=== PATIENT | female | born 1990 | race Caucasian/White ===

== ENCOUNTER 2017-02-20 16:19 | Inpatient (IN) | payer MEDICAID, OTHER ==
[2017-02-20] MEDS ORDERED: HALOPERIDOL DECANOATE 50 MG/ML 1 ML VIAL IM STA (17:05)
[2017-02-20] MEDS ORDERED: LORazepam 2 MG/ML SYRINGE IM STA (17:05)
[2017-02-20] MEDS ORDERED: HALOPERIDOL LACTATE 5 MG/ML 1 ML VIAL IM STA (17:09)
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
[2017-02-20] MEDS ORDERED: MAGNESIUM HYDROXIDE 2,400 MG/10 ML CUP PO PRN (21:32)
[2017-02-20] MEDS ORDERED: MAG HYDROX/AL HYDROX/SIMETH 30 ML CUP PO PRN (21:32)
[2017-02-20] MEDS ORDERED: ZIPRASIDONE 20 MG VIAL IM PRN (21:32)
[2017-02-20] MEDS ORDERED: ACETAMINOPHEN TAB 325 MG TAB PO PRN (21:32)
[2017-02-20] MEDS ORDERED: LORazepam 2 MG/ML SYRINGE IM PRN (21:34)
[2017-02-21 09:25] LABS: Basophils % (A) 0 %; CH 31.3; CHCM 33.5; Eosinophils # (A) 0.2 k/uL (0-0.7); Eosinophils % (A) 3 %; HCT 40.2 % (34.0-46.0); HDW 2.28; HGB 13.5 gm/dL (11.4-16.0); Luc # (Auto) 0.15; Luc % (Auto) 3; Lymphocytes # (A) 1.9 k/uL (1.0-4.8); Lymphocytes % (A) 31 %; MCH 31.4 pg (25.0-35.0); MCHC 33.5 g/dL (31.0-37.0); MCV 93.8 fL (80.0-100.0); Mean Platelet Volume 6.8; Monocytes # (A) 0.4 k/uL (0-1.0); Monocytes % (A) 6 %; Neutrophils # (A) 3.6 k/uL (1.3-7.7); Neutrophils % (A) 58 %; RBC 4.29 m/uL (3.80-5.40); RDW 12.9 % (11.5-15.5); WBC 6.2 k/uL (3.8-10.6); WBC (Perox) 6.64
[2017-02-21 09:48] LABS: ALT 27 U/L (9-52); AST 22 U/L (14-36); Alkaline Phosphatase 64 U/L (38-126); Anion Gap 9 mmol/L; Blood Urea Nitrogen 16 mg/dL (7-17); Calcium 9.2 mg/dL (8.4-10.2); Carbon Dioxide 24 mmol/L (22-30); Chloride 110 mmol/L (98-107); Glucose 78 mg/dL (74-99); Non-African American GFR(MDRD) >60 (>60 ml/min/1.73 sqM); Potassium 3.9 mmol/L (3.5-5.1); Sodium 143 mmol/L (137-145); Total Bilirubin 0.7 mg/dL (0.2-1.3); Total Protein 6.2 g/dL (6.3-8.2)
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
[2017-02-21] MEDS: OLANZapine 2.5 MG TAB PO SCH (21:48)
--- NOTE | 2017-02-22 14:34 | P.PN ---
Progress Note - Text Interval History: Patient is a 27-year-old female who was seen today and states that [facility] family [facility] all [facility] and then she went on to say that [place] [address] and went on to say that her sister had a picture on Facebook of herself in front of the [place]. Patient then asked me to [place] on the petition what things were incorrect she states that she feels all of the statements on a petition were lies. Patient reported that she did sleep last night. Patient states that she is not interested in going to [place] where she was scheduled for an intake on February 13. Mental Status: Appearance/Attitude: Patient is dressed in a hospital gown, found lying in her bed and she is cooperative. Behavior: Patient is not exhibiting any psychomotor agitation or retardation and is less irritable today Speech/Language: Patient's speech is spontaneous, normal volume and rhythm and she is coherent Thought Process: Patient is not goal-directed, patient is tangential Thought Content: Patient denies auditory or visual hallucinations, no paranoid or delusional ideation is elicited however the patient continues to insist that all the statements on the petition are lies. Patient is rambling in her discussion of wanting to go to a different rehab place, stating that all of her family have gone there and then talking about her sister being on Facebook with a picture in front of the [place] and then stating that she thinks her thoughts are clear to her. Patient states that she needs to let it all out and can't. Patient states that she slept well last evening. Suicidal/Homicidal Ideation: Patient denies any suicidal or homicidal ideation at this time. Sensorium/Cognition: Patient is alert and oriented to person, place, and situation and her memory is not formally tested Mood/Affect: Patient's mood is less irritable, her affect is blunted Insight/Judgement: Patient's insight and judgment are impaired. Assessment: Patient continues to be disorganized, rambling on about [facility] [place] that she reports she has talked to the psychotherapist social worker about today, which she has not. Also talking about in context of [place] a picture on Facebook of her sister in front of the [place], then jumping back to talking about [facility] being [place] [address]. Patient is less irritable today and she slept well last evening. Patient is not attending groups or activities. Plan: Patient will continue on Zyprexa 2.5 mg at bedtime should she continue to be as disorganized tomorrow would increase her Zyprexa to 5 mg at bedtime. Patient is less irritable and sleeping better but is not attending groups or activities. Patient continues to require hospitalization to stabilize her thinking.
[2017-02-22] MEDS: OLANZapine 2.5 MG TAB PO SCH (20:53)
[2017-02-23 12:20] LABS: Appearance,Urine Cloudy (Clear); Bacteria,Urine Few /hpf; Bilirubin,Urine Negative (Negative); Glucose,Urine (UA) 1+ (Negative); Ketones,Urine Negative (Negative); Leukocyte Esterase,Urine Large (Negative); Mucus,Urine Many /hpf; Nitrite,Urine Positive (Negative); PH, Urine 7.5 (5.0-8.0); Particle Count 74078; Protein,Urine 1+ (Negative); RBC,Urine 66 /hpf (0-5); Specific Gravity,Urine 1.021 (1.001-1.035); Squamous Epithelial Cell,Urine 25 /hpf (0-4); UA Billing (MACRO vs. MICRO) MICRO; WBC,Urine 77 /hpf (0-5)
[2017-02-23] MEDS: NICOTINE 14MG/24HR PATCH TRANSDERM SCH (15:07)
[2017-02-23] MEDS: SULFAMETHOX-TMP 800-160MG 1 EACH TAB PO SCH ×2 (17:37→20:09)
[2017-02-23] MEDS: OLANZapine 2.5 MG TAB PO SCH (20:09)
--- NOTE | 2017-02-24 08:09 | PN ---
PROGRESS NOTE DATE OF SERVICE: 02/23/2017. CHIEF COMPLAINT: The patient was admitted presumably for hearing voices. She was vague about specifics. At one point she said she was not hearing voices. Though at another point, had talked about hearing and "imaginary friend". She reported daily use of methamphetamines and marijuana. She was then admitted on petition for involuntary hospitalization though she was adamant about the idea that was documented was not at all accurate. The patient had a quiet evening last night. She apparently was in a group and got involved in a discussion of a questionable topic. She was redirected though did not appear to have any further problems. She had a otherwise a quiet evening. She slept fairly well. Today she has been up and about. She did attend one group today. In the group she was noted to be "preoccupied with her per petition and wanting to get it changed. The patient became tearful at the beginning of group." She did acknowledge being "heart broken." It is noted that on the petition it was documented that she was making suicide statements. She had not been taking care of herself for the last 2-3 weeks which is outside of her norm. She reportedly had not slept for 4 days prior to her hospitalization. There is a significant family history of mental health issues. The patient reports that she has been doing fairly well. She tolerates her medications. She says she has not had any problems with Zyprexa. She was comfortable leaving the dose where it was at which was 2.[address] Potter had indicated she would consider raising the Zyprexa [address] Potter noted yesterday that the patient continued to be disorganized in her thoughts. However she was less irritable and sleeping better. The patient reported no significant issues today. She has not had change in her general health. She tolerates his psychotropic medications. MENTAL STATUS: Patient gave good eye contact. Psychomotor activity was somewhat restless. Her speech was clear. She did tend to ramble some though for the most part, stayed on track with the conversation. Her affect was in a fair range. Her mood was somewhat expansive. She did not appear to be significantly distressed. There was no overt sign of thought disorder. ASSESSMENT AND PLAN: I will continue the current diagnosis and treatment plan. I will continue psychotropic medications the same. The patient appears to be making progress. We will continue to focus on stabilization and discharge planning. MMODL / IJN: [id number] /
[2017-02-24] MEDS: SULFAMETHOX-TMP 800-160MG 1 EACH TAB PO SCH ×2 (08:13→20:27)
[2017-02-24] MEDS: NICOTINE 14MG/24HR PATCH TRANSDERM SCH (08:13)
[2017-02-24] MEDS ORDERED: OLANZapine 5 MG TAB PO PRN (15:02)
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
[2017-02-24] MEDS: OLANZapine 2.5 MG TAB PO SCH (20:27)
[2017-02-25 06:42] VITALS: RESP 14
[2017-02-25] MEDS: SULFAMETHOX-TMP 800-160MG 1 EACH TAB PO SCH ×2 (09:44→20:16)
[2017-02-25] MEDS: NICOTINE 14MG/24HR PATCH TRANSDERM SCH (09:45)
--- NOTE | 2017-02-25 11:47 | P.PN ---
Progress Note - Text Interval History: Patient is a 27-year-old female who was seen today. Patient reports that she is doing much better and states she is no longer having any auditory hallucinations no longer speaking to her imaginary friend. She reports that her thinking is much clearer. Patient states she has been eating and sleeping well. She stated that she did have a family meeting with her aunt. states that she did take 1 when necessary dose of Zyprexa because she was a little agitated but states that she has otherwise been sleeping and eating well. Patient reports that she has been using methamphetamine for 1 year only prior to that was abusing Adderall, cocaine in the past. Patient states she is interested in returning to [facility] as well as back to [place] for outpatient counseling. Mental Status: Appearance/Attitude: Patient is neatly groomed, makes good eye contact and is cooperative. Behavior: Patient does not display any psychomotor agitation or retardation. Speech/Language: Patient's speech is spontaneous, normal volume and rhythm and she is coherent. Thought Process: Patient is goal-directed and there is no evidence of circumstantial or tangential thought and no loose associations or flight of ideas. Thought Content: Patient denies any auditory or visual hallucinations, no delusions or paranoid ideation were elicited. The patient states that she is no longer talking to her imaginary friend states that her thinking is much clearer. Patient reports she is eating and sleeping well. Suicidal/Homicidal Ideation: Patient denies any current suicidal or homicidal ideation. Sensorium/Cognition: Patient is alert and oriented to person, place, and time and her memory is grossly intact. Mood/Affect: Patient's mood is more stable less guarded and her affect is appropriate. Insight/Judgement: Patient's insight and judgment are fair. Assessment: Patient reports that her thinking is much clearer, she is no longer having auditory hallucinations talking to an imaginary friend and is not as guarded. Patient admits that she has been abusing methamphetamine for the last year. Patient is aware of the improvement in her thinking. She is eating and sleeping well. She is not interested in going for inpatient rehab again and wants to return to [place] for outpatient counseling. Plan: Patient will continue on Zyprexa 2.5 mg at bedtime and I will discontinue the when necessary Zyprexa as the patient is not agitated and has been cooperative. Patient and I discussed discharged either Saturday or Saturday with follow-up at [facility] and/or at [place] for substance abuse counseling.
[2017-02-25] MEDS: LORazepam 1 MG TAB PO PRN (13:20)
[2017-02-25] MEDS: OLANZapine 2.5 MG TAB PO SCH (20:16)
[2017-02-26 06:51] VITALS: BP 111/60; PULSE 77; TEMP 98
[2017-02-26] MEDS: SULFAMETHOX-TMP 800-160MG 1 EACH TAB PO SCH (09:26)
[2017-02-26] MEDS: NICOTINE 14MG/24HR PATCH TRANSDERM SCH (09:26)
[2017-02-26] MEDS: LORazepam 1 MG TAB PO PRN (10:38)
--- NOTE | 2017-02-26 11:43 | P.DS ---
Providers Date of admission: 02/20/17 20:41 Expected date of discharge: 02/26/17 Attending physician: Mayelin Potter MD Consults: 02/20/17 21:32 Consult Physician Routine Consulting Provider: Ronald Moreno Consult Reason/Comments: medical management Do you want consulting provider notified?: Already Contacted Primary care physician: Stated None Hospital Course: Discharge Diagnoses:[ Methamphetamine induced psychotic disorder, methamphetamine use disorder, moderate; cannabis use disorder, moderate Reason for Admission: Patient is a 27-year-old females brought to the emergency room after her aunt petitioned the patient due to not sleeping for 2-3 days at a time, speaking to an imaginary person and yelling and screaming at neighbors. Patient had not been eating recently and had lost about 10 pounds. Patient states that she hasn't had an imaginary friend called Jen that she talks to and denied that she was hearing voices or feeling paranoid. Patient was very disorganized and a very poor historian on admission. Patient reported using methamphetamine on a daily basis for the last year when she was no longer prescribed Adderall. She also reported using marijuana on a daily basis and denied using benzodiazepines or other amphetamines although her screen was positive for these on admission. Patient stated that the petition was all lies and that everyone was "a fucking liar". She reported that everything was bull shit and was unable to elaborate on what was going on at the time of admission. Patient had one prior admission here in February 2016 and again at that time secondary to methamphetamine use. Patient reports that she had been treated in the past with Adderall since the age of 14 and had also been tried on Wellbutrin and Strattera. Patient also had prescriptions apparently for several antidepressants at home as well as Klonopin and Xanax but she denies ever taking them.] Hospital Course: Patient was admitted on a voluntary basis, routine laboratory studies were ordered and a medical consultation was obtained. Patient was placed on routine observations in order group and activity therapy. Due to the patient's psychotic symptoms she was begun on Zyprexa 2.5 mg at bedtime. Patient slowly improved with the antipsychotic and became less confused and reported she was no longer hearing voices or feeling paranoid. Patient's sleep improved and her appetite as well improved. Patient reported a good response to the medication and at the time of discharge her thinking was clear, she was interested in following up with outpatient drug rehab and was considering going to [facility] at [place]. Patient reported no suicidal ideation and was not having any further psychotic symptomatology and was doing well on the unit attending groups and activities.] Discharge Mental Status:[Appearance/Attitude: Patient was neatly and appropriately dressed, made good eye contact and was cooperative. Behavior: Patient did not display any psychomotor agitation or retardation. Speech/Language: Patient's speech was spontaneous and of normal volume and rhythm and she was coherent. Thought Process: Patient was goal-directed and there is no evidence of circumstantial or tangential thought and there was no evidence of flight of ideas or loose associations. Thought Content: Patient denied any auditory or visual hallucinations no delusions or paranoid ideation were elicited. Patient's thinking was much clear she no longer was talking to her imaginary friend. Patient was sleeping and eating well. Suicidal/Homicidal Ideation: Patient denied any suicidal or homicidal ideation at this time. Sensorium/Cognition: Patient was alert and oriented to person, place, and time and her memory was grossly intact. Mood/Affect: Patient's mood was pleasant and her affect was appropriate. Insight/Judgement: Patient's insight and judgment were fair. Laboratory Last Values WBC 6.2 k/uL (3.8-10.6) 02/21/17 09:02 RBC 4.29 m/uL (3.80-5.40) 02/21/17 09:02 Hgb 13.5 gm/dL (11.4-16.0) 02/21/17 09:02 Hct 40.2 % (34.0-46.0) 02/21/17 09:02 MCV 93.8 fL (80.0-100.0) 02/21/17 09:02 MCH 31.4 pg (25.0-35.0) 02/21/17 09:02 MCHC 33.5 g/dL (31.0-37.0) 02/21/17 09:02 RDW 12.9 % (11.5-15.5) 02/21/17 09:02 Plt Count 292 k/uL (150-450) 02/21/17 09:02 Neutrophils % 58 % 02/21/17 09:02 Lymphocytes % 31 % 02/21/17 09:02 Monocytes % 6 % 02/21/17 09:02 Eosinophils % 3 % 02/21/17 09:02 Basophils % 0 % 02/21/17 09:02 Neutrophils # 3.6 k/uL (1.3-7.7) 02/21/17 09:02 Lymphocytes # 1.9 k/uL (1.0-4.8) 02/21/17 09:02 Monocytes # 0.4 k/uL (0-1.0) 02/21/17 09:02 Eosinophils # 0.2 k/uL (0-0.7) 02/21/17 09:02 Basophils # 0.0 k/uL (0-0.2) 02/21/17 09:02 Sodium 143 mmol/L (137-145) 02/21/17 09:02 Potassium 3.9 mmol/L (3.5-5.1) 02/21/17 09:02 Chloride 110 mmol/L (98-107) H 02/21/17 09:02 Carbon Dioxide 24 mmol/L (22-30) 02/21/17 09:02 Anion Gap 9 mmol/L 02/21/17 09:02 BUN 16 mg/dL (7-17) 02/21/17 09:02 Creatinine 0.70 mg/dL (0.52-1.04) 02/21/17 09:02 Est GFR (MDRD) Af Amer >60 (>60 ml/min/1.73 sqM) 02/21/17 09:02 Est GFR (MDRD) Non-Af >60 (>60 ml/min/1.73 sqM) 02/21/17 09:02 Glucose 78 mg/dL (74-99) 02/21/17 09:02 Calcium 9.2 mg/dL (8.4-10.2) 02/21/17 09:02 Total Bilirubin 0.7 mg/dL (0.2-1.3) 02/21/17 09:02 AST 22 U/L (14-36) 02/21/17 09:02 ALT 27 U/L (9-52) 02/21/17 09:02 Alkaline Phosphatase 64 U/L (38-126) 02/21/17 09:02 Total Protein 6.2 g/dL (6.3-8.2) L 02/21/17 09:02 Albumin 4.0 g/dL (3.5-5.0) 02/21/17 09:02 TSH 0.574 mIU/L (0.465-4.680) 02/21/17 09:02 Urine Color Yellow 02/23/17 11:54 Urine Appearance Cloudy (Clear) H 02/23/17 11:54 Urine pH 7.5 (5.0-8.0) 02/23/17 11:54 Ur Specific [place] 1.021 (1.001-1.035) 02/23/17 11:54 Urine Protein 1+ (Negative) H 02/23/17 11:54 Urine Glucose (UA) 1+ (Negative) H 02/23/17 11:54 Urine Ketones Negative (Negative) 02/23/17 11:54 Urine Blood Large (Negative) H 02/23/17 11:54 Urine Nitrite Positive (Negative) H 02/23/17 11:54 Urine Bilirubin Negative (Negative) 02/23/17 11:54 Urine Urobilinogen 3.0 mg/dL (<2.0) 02/23/17 11:54 Ur Leukocyte Esterase Large (Negative) H 02/23/17 11:54 Urine RBC 66 /hpf (0-5) H 02/23/17 11:54 Urine WBC 77 /hpf (0-5) H 02/23/17 11:54 Ur Squamous Epith Cells 25 /hpf (0-4) H 02/23/17 11:54 Urine Bacteria Few /hpf (None) H 02/23/17 11:54 Urine Mucus Many /hpf (None) H 02/23/17 11:54 Urine HCG, Qual Not Detected (Not Detectd) 02/20/17 17:49 Urine Opiates Screen Not Detected (NotDetected) 02/20/17 17:49 Ur Oxycodone Screen Not Detected (NotDetected) 02/20/17 17:49 Urine Methadone Screen Not Detected (NotDetected) 02/20/17 17:49 Ur Propoxyphene Screen Not Detected (NotDetected) 02/20/17 17:49 Ur Barbiturates Screen Not Detected (NotDetected) 02/20/17 17:49 U Tricyclic Antidepress Not Detected (NotDetected) 02/20/17 17:49 Ur Phencyclidine Scrn Not Detected (NotDetected) 02/20/17 17:49 Ur Amphetamines Screen Detected (NotDetected) H 02/20/17 17:49 U Methamphetamines Scrn Detected (NotDetected) H 02/20/17 17:49 U Benzodiazepines Scrn Detected (NotDetected) H 02/20/17 17:49 Urine Cocaine Screen Not Detected (NotDetected) 02/20/17 17:49 U Marijuana (THC) Screen Detected (NotDetected) H 02/20/17 17:49 Risk Assessment: Patient's risk is low for self harm she has no prior history of suicide attempts, is interested in drug rehab. Discharge Plan: Patient will be discharged to live with her aunt she [facility] and continue on Zyprexa 2.5 mg at bedtime. Patient will follow-up with her interest in drug rehab at [facility] in [place]. Patient was given a prescription for Zyprexa 2.5 mg to take at bedtime as well as Bactrim for 3 more days to treat a UTI. Patient Condition at Discharge: Stable Plan - Discharge Summary New Discharge Prescriptions: New OLANZapine [ZyPREXA] 2.5 mg PO HS #14 tab Sulfamethox-Tmp 800-160Mg [Bactrim DS 800-160 mg] 1 each PO BID #6 tab Discontinued Acyclovir 400 mg PO BID clonazePAM [KlonoPIN] 0.5 mg PO Q12H PRN PRN Reason: Anxiety FLUoxetine HCL [PROzac] 20 mg PO DAILY Escitalopram [Lexapro] 10 mg PO DAILY ALPRAZolam [Xanax] 0.25 mg PO Q8H PRN PRN Reason: Anxiety Discharge Medication List OLANZapine [ZyPREXA] 2.5 mg PO HS #14 tab 02/26/17 [Rx] Sulfamethox-Tmp 800-160Mg [Bactrim DS 800-160 mg] 1 each PO BID #6 tab 02/26/17 [Rx] Follow up Appointment(s)/Referral(s): [facility] - 02/28/17 3:30 pm (Intake at [facility] for 02/28 at 3:30 pm) None,Stated [Primary Care Provider] - 1-2 days Patient Instructions/Handouts: How to Stop Smoking (DC), Brief Psychotic Disorder (DC), Methamphetamine Abuse (DC) Activity/Diet/Wound Care/Special Instructions: Remove all weapons and firearms from the home. No street drugs or alcohol. Regular Diet. Activity as tolerated. Follow up care with your PCP in 1-2 days. Keep all scheduled follow up appointments for continuity of care. Any problems call your PCP or the Crisis Line Discharge Disposition: HOME SELF-CARE
== END 2017-02-26 14:44 | disposition home or self-care (01) | DRG 897 ==
LOC: EC 16:19 → 3MHU 20:41
PROVIDERS: ADMIT Psychiatry & Neurology Psychiatry; ATTEND Psychiatry & Neurology Psychiatry
DX: F15.159 Other stimulant abuse with stimulant-induced psychotic disorder, unspecified (principal); N39.0 Urinary tract infection, site not specified; F41.9 Anxiety disorder, unspecified; F17.200 Nicotine dependence, unspecified, uncomplicated; F12.10 Cannabis abuse, uncomplicated; F19.10 Other psychoactive substance abuse, uncomplicated; F90.9 Attention-deficit hyperactivity disorder, unspecified type; Z79.899 Other long term (current) drug therapy; Z86.14 Personal history of Methicillin resistant Staphylococcus aureus infection
CPT/HCPCS: 80053; 80306; 81001; 81025; 82075; 84443; 85025; 96372; 99285

== ENCOUNTER 2017-03-11 13:09 | Inpatient (IN) | payer MEDICAID, OTHER ==
--- NOTE | 2017-03-11 13:55 | ED ---
General Adult HPI - General Chief complaint: Psychiatric Symptoms Stated complaint: Mental Health Time Seen by Provider: 03/11/17 13:24 Source: patient, police, RN notes reviewed Mode of arrival: ambulatory Limitations: no limitations - History of Present Illness Initial comments: Patient is a pleasant 27-year-old female presenting to the emergency department with police escort. Patient states she is here to urinate and he calm. Patient has no complaints. Patient denies depression or suicidal or homicidal thoughts. No physical complaints. Patient denies drug use at this time. Prior chart was reviewed and patient does have history of similar problems previously. Patient does have history of methamphetamine use. Patient is obviously manic and has difficulty holding conversation. Patient's responses are not reliable. Flight of ideas. - Related Data Home Medications Medication Instructions Recorded Confirmed OLANZapine [ZyPREXA] 2.5 mg PO HS 03/11/17 03/11/17 Allergies Allergy/AdvReac Type Severity Reaction Status Date / Time No Known Allergies Allergy Verified 03/11/17 13:10 Review of Systems ROS Statement: Those systems with pertinent positive or pertinent negative responses have been documented in the HPI. ROS Other: All systems not noted in ROS Statement are negative. Constitutional: Denies: fever Eyes: Denies: eye pain ENT: Denies: ear pain Respiratory: Denies: cough Cardiovascular: Denies: chest pain Endocrine: Denies: fatigue Gastrointestinal: Denies: abdominal pain Genitourinary: Denies: dysuria Musculoskeletal: Denies: back pain Skin: Denies: rash Neurological: Denies: weakness Psychiatric: Denies: depression Past Medical History Past Medical History: No Reported History Additional Past Medical History / Comment(s): hx herpes, IUD surgically removed History of Any Multi-Drug Resistant Organisms: MRSA Date of last positivie culture/infection: 2013 MDRO Source:: lt leg, lt axillae Past Surgical History: Section Past Anesthesia/Blood Transfusion Reactions: Postoperative Nausea & Vomiting ( PONV) Past Psychological History: ADD/ADHD, Bipolar Smoking Status: Current every day smoker Past Alcohol Use History: Occasional Past Drug Use History: Marijuana - Past Family History Mother Additional Family Medical History / Comment(s): blood clot main artery neck General Exam Limitations: no limitations General appearance: alert, in no apparent distress Head exam: Present: atraumatic Eye exam: Present: normal appearance, PERRL ENT exam: Present: normal oropharynx Neck exam: Present: normal inspection Respiratory exam: Present: normal lung sounds bilaterally Cardiovascular Exam: Present: regular rate, normal rhythm GI/Abdominal exam: Present: soft Extremities exam: Present: normal inspection Neurological exam: Present: alert. Absent: motor sensory deficit Psychiatric exam: Present: manic Expanded Focused psych exam: Present: euphoric, flight of ideas Skin exam: Present: normal color Course Vital Signs 03/11/17 13:10 Temperature 98.2 F Pulse Rate 100 Respiratory 20 Rate Blood Pressure 152/98 O2 Sat by Pulse 100 Oximetry EKG Findings - EKG Comments: EKG Findings:: Tachycardia 103. ME 132. QRS 84. QT 342. QTC 440. Normal axis. Normal QRS. No acute ST change. Medical Decision Making - Medical Decision Making Patient was seen by mental health services, who will admit. Positive clinical certificate completed. - Lab Data Result diagrams: 03/11/17 14:10 03/11/17 14:10 Lab Results 03/11/17 03/11/17 03/11/17 Range/Units 14:10 14:10 14:50 WBC 10.3 (3.8-10.6) k/uL RBC 4.66 (3.80-5.40) m/uL Hgb 14.3 (11.4-16.0) gm/dL Hct 43.4 (34.0-46.0) % MCV 93.1 (80.0-100.0) fL MCH 30.7 (25.0-35.0) pg MCHC 33.0 (31.0-37.0) g/dL RDW 13.7 (11.5-15.5) % Plt Count 312 (150-450) k/uL Neutrophils % 67 % Lymphocytes % 24 % Monocytes % 5 % Eosinophils % 2 % Basophils % 0 % Neutrophils # 6.9 (1.3-7.7) k/uL Lymphocytes # 2.5 (1.0-4.8) k/uL Monocytes # 0.6 (0-1.0) k/uL Eosinophils # 0.2 (0-0.7) k/uL Basophils # 0.0 (0-0.2) k/uL Sodium 143 (137-145) mmol/L Potassium 3.9 (3.5-5.1) mmol/L Chloride 104 (98-107) mmol/L Carbon Dioxide 25 (22-30) mmol/L Anion Gap 14 mmol/L BUN 21 H (7-17) mg/dL Creatinine 0.70 (0.52-1.04) mg/dL Est GFR (MDRD) Af Amer >60 (>60 ml/min/1.73 sqM) Est GFR (MDRD) Non-Af >60 (>60 ml/min/1.73 sqM) Glucose 108 H (74-99) mg/dL Calcium 9.9 (8.4-10.2) mg/dL Total Bilirubin 0.7 (0.2-1.3) mg/dL AST 26 (14-36) U/L ALT 36 (9-52) U/L Alkaline Phosphatase 81 (38-126) U/L Total Protein 8.1 (6.3-8.2) g/dL Albumin 5.0 (3.5-5.0) g/dL Urine HCG, Qual (Not Detectd) Salicylates <1.0 mg/dL Urine Opiates Screen Not Detected (NotDetected) Ur Oxycodone Screen Not Detected (NotDetected) Urine Methadone Screen Not Detected (NotDetected) Ur Propoxyphene Screen Not Detected (NotDetected) Acetaminophen <10.0 ug/mL Ur Barbiturates Screen Not Detected (NotDetected) U Tricyclic Antidepress Not Detected (NotDetected) Ur Phencyclidine Scrn Not Detected (NotDetected) Ur Amphetamines Screen Detected H (NotDetected) U Methamphetamines Scrn Detected H (NotDetected) U Benzodiazepines Scrn Detected H (NotDetected) Urine Cocaine Screen Not Detected (NotDetected) U Marijuana (THC) Screen Detected H (NotDetected) Serum Alcohol <10 mg/dL 03/11/17 Range/Units 14:50 WBC (3.8-10.6) k/uL RBC (3.80-5.40) m/uL Hgb (11.4-16.0) gm/dL Hct (34.0-46.0) % MCV (80.0-100.0) fL MCH (25.0-35.0) pg MCHC (31.0-37.0) g/dL RDW (11.5-15.5) % Plt Count (150-450) k/uL Neutrophils % % Lymphocytes % % Monocytes % % Eosinophils % % Basophils % % Neutrophils # (1.3-7.7) k/uL Lymphocytes # (1.0-4.8) k/uL Monocytes # (0-1.0) k/uL Eosinophils # (0-0.7) k/uL Basophils # (0-0.2) k/uL Sodium (137-145) mmol/L Potassium (3.5-5.1) mmol/L Chloride (98-107) mmol/L Carbon Dioxide (22-30) mmol/L Anion Gap mmol/L BUN (7-17) mg/dL Creatinine (0.52-1.04) mg/dL Est GFR (MDRD) Af Amer (>60 ml/min/1.73 sqM) Est GFR (MDRD) Non-Af (>60 ml/min/1.73 sqM) Glucose (74-99) mg/dL Calcium (8.4-10.2) mg/dL Total Bilirubin (0.2-1.3) mg/dL AST (14-36) U/L ALT (9-52) U/L Alkaline Phosphatase (38-126) U/L Total Protein (6.3-8.2) g/dL Albumin (3.5-5.0) g/dL Urine HCG, Qual Not Detected (Not Detectd) Salicylates mg/dL Urine Opiates Screen (NotDetected) Ur Oxycodone Screen (NotDetected) Urine Methadone Screen (NotDetected) Ur Propoxyphene Screen (NotDetected) Acetaminophen ug/mL Ur Barbiturates Screen (NotDetected) U Tricyclic Antidepress (NotDetected) Ur Phencyclidine Scrn (NotDetected) Ur Amphetamines Screen (NotDetected) U Methamphetamines Scrn (NotDetected) U Benzodiazepines Scrn (NotDetected) Urine Cocaine Screen (NotDetected) U Marijuana (THC) Screen (NotDetected) Serum Alcohol mg/dL Disposition Clinical Impression: Psychosis, [place] Disposition: TRANSFER TO PSYCH HOSP/UNIT Referrals: Héctor Arellano Jr, DO [Primary Care Provider] - 1-2 days Decision Time: 16:31
[2017-03-11 14:26] LABS: Basophils % (A) 0 %; CHCM 34.6; Eosinophils # (A) 0.2 k/uL (0-0.7); Eosinophils % (A) 2 %; HCT 43.4 % (34.0-46.0); HGB 14.3 gm/dL (11.4-16.0); Luc # (Auto) 0.18; Luc % (Auto) 2; Lymphocytes # (A) 2.5 k/uL (1.0-4.8); Lymphocytes % (A) 24 %; MCH 30.7 pg (25.0-35.0); MCV 93.1 fL (80.0-100.0); Mean Platelet Volume 7.8; Monocytes # (A) 0.6 k/uL (0-1.0); Monocytes % (A) 5 %; Neutrophils # (A) 6.9 k/uL (1.3-7.7); Neutrophils % (A) 67 %; RBC 4.66 m/uL (3.80-5.40); RDW 13.7 % (11.5-15.5); WBC 10.3 k/uL (3.8-10.6)
[2017-03-11 14:33] LABS: ALT 36 U/L (9-52); AST 26 U/L (14-36); Acetaminophen <10.0 ug/mL; Alcohol <10 mg/dL; Alkaline Phosphatase 81 U/L (38-126); Anion Gap 14 mmol/L; Blood Urea Nitrogen 21 mg/dL (7-17); Calcium 9.9 mg/dL (8.4-10.2); Carbon Dioxide 25 mmol/L (22-30); Chloride 104 mmol/L (98-107); Glucose 108 mg/dL (74-99); Non-African American GFR(MDRD) >60 (>60 ml/min/1.73 sqM); Potassium 3.9 mmol/L (3.5-5.1); Salicylate <1.0 mg/dL; Sodium 143 mmol/L (137-145); Total Bilirubin 0.7 mg/dL (0.2-1.3); Total Protein 8.1 g/dL (6.3-8.2)
[2017-03-11] MEDS ORDERED: LORazepam 2 MG/ML INJ IM STA (16:10)
[2017-03-11] MEDS ORDERED: LORazepam 1 MG TAB PO STA ×2 (16:31→16:38)
[2017-03-11] MEDS ORDERED: MAG HYDROX/AL HYDROX/SIMETH 30 ML CUP PO PRN (17:45)
[2017-03-11] MEDS ORDERED: ZIPRASIDONE 20 MG VIAL IM ONE (17:46)
[2017-03-11] MEDS ORDERED: LORazepam 2 MG/ML INJ IM PRN (17:47)
[2017-03-11] MEDS ORDERED: WATER FOR INJECTION, STERILE 10 ML IV ONE (17:47)
[2017-03-11] MEDS: ZIPRASIDONE 20 MG VIAL IM PRN (17:53)
[2017-03-11] MEDS ORDERED: OLANZapine 2.5 MG TAB PO SCH (21:00)
[2017-03-12] MEDS: NICOTINE 14MG/24HR PATCH TRANSDERM SCH (09:21)
[2017-03-12] MEDS: LORazepam 1 MG TAB PO PRN ×2 (09:21→20:33)
[2017-03-12 09:29] LABS: Basophils % (A) 0 %; CH 30.6; CHCM 33.1; Eosinophils # (A) 0.2 k/uL (0-0.7); Eosinophils % (A) 2 %; HDW 2.36; HGB 13.3 gm/dL (11.4-16.0); Luc # (Auto) 0.13; Luc % (Auto) 2; Lymphocytes # (A) 1.2 k/uL (1.0-4.8); Lymphocytes % (A) 14 %; MCH 31.6 pg (25.0-35.0); MCV 92.9 fL (80.0-100.0); Mean Platelet Volume 7.1; Monocytes # (A) 0.4 k/uL (0-1.0); Monocytes % (A) 5 %; Neutrophils # (A) 6.6 k/uL (1.3-7.7); Neutrophils % (A) 77 %; RBC 4.19 m/uL (3.80-5.40); WBC 8.6 k/uL (3.8-10.6); WBC (Perox) 8.94
[2017-03-12 09:41] LABS: ALT 33 U/L (9-52); AST 20 U/L (14-36); Alkaline Phosphatase 61 U/L (38-126); Anion Gap 10 mmol/L; Blood Urea Nitrogen 20 mg/dL (7-17); Calcium 9.2 mg/dL (8.4-10.2); Carbon Dioxide 26 mmol/L (22-30); Chloride 109 mmol/L (98-107); Glucose 107 mg/dL (74-99); Non-African American GFR(MDRD) >60 (>60 ml/min/1.73 sqM); Potassium 4.3 mmol/L (3.5-5.1); Sodium 145 mmol/L (137-145); Total Bilirubin 0.6 mg/dL (0.2-1.3); Total Protein 6.7 g/dL (6.3-8.2)
[2017-03-12] MEDS: ACETAMINOPHEN TAB 325 MG TAB PO PRN (11:21)
[2017-03-12] MEDS: OLANZapine ODT 5 MG TAB PO PRN (12:15)
--- NOTE | 2017-03-12 13:32 | P.CONS ---
History of Present Illness - Reason for Consult Consult date: 03/12/17 Medical Management - Chief Complaint Psychiatric Admission - History of Present Illness 27-year-old female who presented to the emergency department via police escort on 03/11/2017. The patient was admitted to the mental health unit with a diagnosis of psychosis. The patient had a recent admission to the hospital from 02/20/2017 to 2016 due to being petitioned by her aunt and was admitted to the mental health unit. Toxicology reports completed in the ER revealed the patient was positive for amphetamines, methamphetamines, benzodiazepines, and marijuana. Dr. Moreno was consulted for medical management. The patient denies any medical concerns or complaints with the exception of stating that she feels that her allergies are bothering her. She denies shortness of breath or chest pain. She denies nausea or vomiting. She is maintaining an oxygen saturation greater than 92% on room air. Her vital signs are stable. She is slightly tachycardic with a heart rate of 107. Her lab work was reviewed. Review of Systems Those systems with pertinent positive or pertinent negative responses have been documented in the HPI Past Medical History Past Medical History: No Reported History Additional Past Medical History / Comment(s): hx herpes, IUD surgically removed History of Any Multi-Drug Resistant Organisms: MRSA Year Discovered:: 2013 MDRO Source:: lt leg, lt axillae Past Surgical History: Section Past Anesthesia/Blood Transfusion Reactions: Postoperative Nausea & Vomiting ( PONV) Past Psychological History: ADD/ADHD, Bipolar Smoking Status: Current every day smoker Past Alcohol Use History: Occasional Past Drug Use History: Marijuana - Past Family History Mother Additional Family Medical History / Comment(s): blood clot main artery neck Medications and Allergies Home Medications Medication Instructions Recorded Confirmed Type OLANZapine [ZyPREXA] 2.5 mg PO HS 03/11/17 03/11/17 History Allergies Allergy/AdvReac Type Severity Reaction Status Date / Time No Known Allergies Allergy Verified 03/11/17 13:10 Physical Exam Vitals: Vital Signs Temp Pulse Pulse Resp BP BP Pulse Ox 03/12/17 09:23 107 H 16 107/67 03/11/17 18:00 99.2 F 114 H 22 126/82 99 03/11/17 17:25 97.5 F L 94 20 126/82 99 Intake and Output 09/03/12/17 03/12/17 22:59 06:59 14:59 Other: Weight 63.3 kg GENERAL: Alert and oriented. Cooperative. Appears manic. RESPIRATORY: Lungs clear bilaterally. No use of accessory muscles. Patient maintaining oxygen saturation greater than 92%. CARDIOVASCULAR: S1 and S2 noted. No murmurs auscultated. No JVD noted. EXTREMITIES: No edema noted. Palpable pedal pulses +2. ABDOMEN: No distention noted. Abdomen soft and round. Normal active bowel sounds auscultated 4 quadrants. No pain or tenderness noted upon palpation. 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 Potter -We will add Claritin 10 mg daily for seasonal allergies -Resume home meds as appropriate -Monitor labs -Monitor vital signs and address as appropriate The above impression and plan of care have been discussed and directed by signing physician. Ana María Love, nurse practitioner, acting as scribe for signing physician.
[2017-03-12] MEDS: LORATADINE 10 MG TAB PO SCH ×3 (13:47→18:45)
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
[2017-03-12] MEDS: MAGNESIUM HYDROXIDE 2,400 MG/10 ML CUP PO PRN (20:21)
[2017-03-12] MEDS: OLANZapine ODT 5 MG TAB PO SCH (20:30)
[2017-03-13] MEDS: LORATADINE 10 MG TAB PO SCH (08:26)
[2017-03-13] MEDS: NICOTINE 14MG/24HR PATCH TRANSDERM SCH (08:26)
[2017-03-13] MEDS: LORazepam 1 MG TAB PO PRN ×2 (08:28→16:40)
[2017-03-13] MEDS ORDERED: BACITRACIN OINT 1 EACH PACKET TOPICAL ONE (11:01)
--- NOTE | 2017-03-13 11:29 | P.PN ---
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 Patient states that she may or may not have been using drugs on the outside. Patient's UDS was positive and this was discussed with the patient. When patient was asked about going to inpatient rehab she stated that she does as she goes to the soup kitchen at [place]. Patient stated she was being true to the red white and blue. Patient then requested that she be restarted on Adderall. Mental Status: Appearance/Attitude: Patient is appropriately dressed, intermittent eye contact and is superficially cooperative. Behavior: Patient was brushing her teeth during the interview, she did not display any psychomotor agitation or retardation. Speech/Language: Patient's speech is slightly pressured, of normal volume and rhythm and she is coherent. Thought Process: Patient is tangential, at times her responses are not relevant. Thought Content: Patient denies auditory or visual hallucinations, patient did not express any paranoid or delusional ideation. Patient today states that she was not using drugs and then stated that maybe she was, she requested Adderall and stated she is being discharged in an hour. Suicidal/Homicidal Ideation: Patient denies any current suicidal or homicidal ideation. Sensorium/Cognition: Patient is alert and oriented to person, place, and time and her memory is grossly intact. Mood/Affect: Patient's mood remains labile, irritable and her affect is appropriate to her mood. Insight/Judgement: Patient's insight and judgment are poor. Assessment: patient is less agitated today, but remains tangential, at times her responses have no relevance to questions, she stated that she is going to rehab and stated that this was located at the [facility] kitchen. Patient's requesting Adderall states that she slept 12 hours last night. Patient is not verbalizing any delusional ideation today. Patient reported no side effects from the medication. There've been no further outbursts on the unit and patient is not attending groups or activities. Plan: Patient will continue on Zyprexa Zydis 5 mg at bedtime, she has used Ativan as needed and has not required any further Zyprexa as needed. Patient continues to require hospitalization to treat her psychosis.
[2017-03-13] MEDS: MAGNESIUM HYDROXIDE 2,400 MG/10 ML CUP PO PRN (20:30)
[2017-03-13] MEDS: OLANZapine ODT 5 MG TAB PO SCH (20:30)
[2017-03-14] MEDS: LORATADINE 10 MG TAB PO SCH (08:25)
[2017-03-14] MEDS: NICOTINE 14MG/24HR PATCH TRANSDERM SCH (08:25)
[2017-03-14] MEDS: LORazepam 1 MG TAB PO PRN ×3 (08:26→21:32)
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
[2017-03-14] MEDS: OLANZapine ODT 5 MG TAB PO PRN (13:30)
[2017-03-14] MEDS: OLANZapine ODT 5 MG TAB PO SCH (20:19)
[2017-03-15] MEDS: LORATADINE 10 MG TAB PO SCH (09:13)
[2017-03-15] MEDS: NICOTINE 14MG/24HR PATCH TRANSDERM SCH (09:13)
[2017-03-15] MEDS: LORazepam 1 MG TAB PO PRN ×2 (10:06→17:38)
[2017-03-15] MEDS: OLANZapine ODT 5 MG TAB PO PRN (10:10)
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
[2017-03-15] MEDS: OLANZapine ODT 10 MG TAB PO SCH (20:20)
[2017-03-15] MEDS: MAGNESIUM HYDROXIDE 2,400 MG/10 ML CUP PO PRN (20:25)
[2017-03-16] MEDS: LORATADINE 10 MG TAB PO SCH (08:45)
[2017-03-16] MEDS: NICOTINE 14MG/24HR PATCH TRANSDERM SCH (08:46)
[2017-03-16] MEDS: LORazepam 1 MG TAB PO PRN ×2 (08:46→15:05)
[2017-03-16] MEDS: OLANZapine ODT 5 MG TAB PO PRN (15:36)
[2017-03-16] MEDS ORDERED: OLANZapine ODT 10 MG TAB PO STA (16:38)
[2017-03-16] MEDS ORDERED: LORazepam 2 MG/ML INJ IM STA (17:18)
[2017-03-16] MEDS ORDERED: BACITRACIN OINT 1 EACH PACKET TOPICAL ONE (17:35)
[2017-03-16] MEDS: ZIPRASIDONE 20 MG VIAL IM PRN (19:02)
[2017-03-16] MEDS ORDERED: ACYCLOVIR 200 MG CAP PO SCH (21:00)
[2017-03-16] MEDS: OLANZapine ODT 10 MG TAB PO SCH (21:44)
[2017-03-16] MEDS: ACYCLOVIR 200 MG CAP PO SCH (21:44)
[2017-03-17] MEDS: NICOTINE 14MG/24HR PATCH TRANSDERM SCH (09:39)
[2017-03-17] MEDS: ACYCLOVIR 200 MG CAP PO SCH ×3 (09:39→21:06)
[2017-03-17] MEDS: LORATADINE 10 MG TAB PO SCH (09:39)
[2017-03-17] MEDS: LORazepam 1 MG TAB PO PRN ×2 (09:41→15:42)
[2017-03-17] MEDS: OLANZapine ODT 5 MG TAB PO PRN (10:03)
[2017-03-17] MEDS: MAGNESIUM HYDROXIDE 2,400 MG/10 ML CUP PO PRN (20:30)
[2017-03-17] MEDS: OLANZapine ODT 10 MG TAB PO SCH (20:30)
--- NOTE | 2017-03-18 02:06 | P.PN ---
Progress Note - Text Patient was exceptionally pleasant today and much less intrusive than prior exam. She was thankful for the acyclovir. She reports and did go to every group and recreational therapy today. Reports she is eating well, sleeping well, denies SI/AVH. When discussing some of patient's past history her description of events sounded almost psychotic, however it was realized later on in the interview patient is more dramatic than psychotic with her language and talks fast. Patient encouraged to tone down the drama as it is clearly doing her no good. ! continue current regimen acyclovir ordered for shingles outbreak continue hospitalization -c -c
[2017-03-18] MEDS: LORazepam 1 MG TAB PO PRN ×3 (02:11→15:53)
[2017-03-18 02:12] VITALS: RESP 16
[2017-03-18] MEDS: NICOTINE 14MG/24HR PATCH TRANSDERM SCH (08:52)
[2017-03-18] MEDS: ACYCLOVIR 200 MG CAP PO SCH ×3 (08:52→20:21)
[2017-03-18] MEDS: LORATADINE 10 MG TAB PO SCH (08:52)
[2017-03-18] MEDS: OLANZapine ODT 5 MG TAB PO PRN (09:47)
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
[2017-03-18] MEDS: MAGNESIUM HYDROXIDE 2,400 MG/10 ML CUP PO PRN (13:59)
[2017-03-18] MEDS: OLANZapine ODT 5 MG TAB PO SCH (20:21)
[2017-03-19] MEDS: NICOTINE 14MG/24HR PATCH TRANSDERM SCH (08:52)
[2017-03-19] MEDS: ACYCLOVIR 200 MG CAP PO SCH ×3 (08:52→20:16)
[2017-03-19] MEDS: LORATADINE 10 MG TAB PO SCH (08:52)
[2017-03-19] MEDS: LORazepam 1 MG TAB PO PRN ×2 (09:00→15:59)
[2017-03-19] MEDS: OLANZapine ODT 5 MG TAB PO PRN (10:13)
--- NOTE | 2017-03-19 15:28 | P.PN ---
Progress Note - Text Interval History: Patient is a 27-year-old female who was seen today, patient reported that her thoughts were clear and that she slept better last evening. Patient was able to discuss inpatient rehab programs and was agreeable for referral to such. Patient reported that she was not having any suicidal thoughts and states that she has no side effects from the medication. [facility]. Mental Status: Appearance/Attitude: Patient was neatly and appropriately dressed , makes good eye contact and was cooperative. Behavior: Patient did not display any psychomotor agitation or retardation during the interview however she did storm out of a group this morning crying Speech/Language: Patient's speech was spontaneous, of normal volume and rhythm and she was coherent. Thought Process: Patient was more goal directed, is no evidence of loose associations or flight of ideas. Thought Content: Patient denied any auditory or visual hallucinations and no delusions or paranoid ideation were elicited. Patient reported that she thought her thoughts were much clearer and the patient was more on task and organized today. Patient reported that she was sleeping and eating well. Suicidal/Homicidal Ideation: Patient denied any current suicidal or homicidal ideation. Sensorium/Cognition: Patient was alert and oriented to person, place, time and her memory is grossly intact. Mood/Affect: Patient's mood remains labile at times with periods of becoming irritated and tearful how or if these are less frequent and her affect is more appropriate. Insight/Judgement: Patient's insight and judgment remain poor. Assessment: Patient appears more organized, more goal directed and she reports her thinking is much clearer. Patient continues to have episodes on the unit where she becomes irritable and can become tearful for no reason but these are occurring less frequently. Patient did leave a group this morning quite angry and irritable and was crying. Patient was agreeable today to consider referral for inpatient rehab. Plan: Patient will continue on Zyprexa 15 mg at bedtime to target her mood. Patient continues to require hospitalization to further stabilize her mood and decrease her psychotic symptoms. Patient is requested to go to [facility] on discharge and is agreeable for referrals to inpatient drug rehab.
[2017-03-19] MEDS: OLANZapine ODT 5 MG TAB PO SCH (20:16)
[2017-03-20] MEDS: ACYCLOVIR 200 MG CAP PO SCH ×3 (08:25→21:08)
[2017-03-20] MEDS: LORATADINE 10 MG TAB PO SCH (08:25)
[2017-03-20] MEDS: NICOTINE 14MG/24HR PATCH TRANSDERM SCH (08:26)
--- NOTE | 2017-03-20 11:21 | P.PN ---
Progress Note - Text Interval History: Patient is a 27-year-old female who was seen this morning, she states that she is feeling much better and has not taken any as needed medications since yesterday morning. Patient states that she is going to some groups, has been sleeping and eating well. She states her thinking has continued to clear and she doesn't feel as disorganized that she did on admission. Patient states that she contacted the access line for an intake at [place]. Patient continues to request follow-up at [facility] after discharge. Patient reported no side effects from the medication. Mental Status: Appearance/Attitude: Patient is neatly and appropriately dressed , makes good eye contact and is cooperative. Behavior: Patient does not display any psychomotor agitation or retardation. Speech/Language: Patient's speech is spontaneous and of normal volume and rhythm and she is coherent. Thought Process: Patient is goal directed, there is no evidence of circumstantial or tangential thought and no loose associations or flight of ideas. Thought Content: Patient denies any auditory or visual hallucinations and no delusions or paranoid ideation were elicited. Patient is much more organized, responding to questions appropriately and relevantly, not reporting any side effects from the medication. She is also sleeping and eating well. Suicidal/Homicidal Ideation: Patient denies any current suicidal or homicidal ideation. Sensorium/Cognition: Patient is alert and oriented to person, place, and time and her memory is grossly intact. Mood/Affect: Patient's mood is more stable, affect is appropriate. Insight/Judgement: Patient's insight and judgment are fair. Assessment: Patient is much more organized and relevant in her conversations, her mood is much more stable there was no episodes of tearfulness or becoming angry and irritable during our interview today. Patient also noticed the change in her thinking and states that she is feeling much better. Patient reports that she is sleeping and eating well. Patient discussed her interest in inpatient rehab after discharge and did make the contact call to access this treatment yesterday. Patient has been attending some groups and there have been no episodes of inappropriate or irritable behavior since yesterday morning. Plan: Patient will continue on Zyprexa 15 mg at bedtime, awaiting intake appointment at [place]. Patient and I discussed possible discharge tomorrow, she states that she will live with a friend and will attend AA/NA meetings until her intake at [place].
[2017-03-20] MEDS: LORazepam 1 MG TAB PO PRN ×2 (11:41→18:30)
[2017-03-20] MEDS: OLANZapine ODT 5 MG TAB PO PRN (13:49)
[2017-03-20] MEDS: OLANZapine ODT 5 MG TAB PO SCH (21:09)
[2017-03-20] MEDS: MAGNESIUM HYDROXIDE 2,400 MG/10 ML CUP PO PRN (21:42)
[2017-03-20] MEDS: ACETAMINOPHEN TAB 325 MG TAB PO PRN (23:31)
[2017-03-21 06:51] VITALS: BP 111/67; PULSE 76; TEMP 97.7
[2017-03-21] MEDS: LORATADINE 10 MG TAB PO SCH (08:09)
[2017-03-21] MEDS: ACYCLOVIR 200 MG CAP PO SCH (08:09)
[2017-03-21] MEDS: NICOTINE 14MG/24HR PATCH TRANSDERM SCH (08:09)
--- NOTE | 2017-03-21 11:29 | P.DS ---
Providers Date of admission: 03/11/17 17:15 Expected date of discharge: 03/21/17 Attending physician: Mayelin Potter MD Consults: 03/11/17 17:45 Consult Physician Routine Consulting Provider: Héctor Arellano Jr Consult Reason/Comments: follow up H & P Do you want consulting provider notified?: Yes Primary care physician: Héctor Arellano [facility] Hospital Course: Discharge Diagnoses: Methamphetamine-induced psychotic disorder, with use, moderate; cannabis use disorder, mild and benzodiazepine use disorder, mild Reason for Admission: Patient is a 27-year-old female who was brought in by the police and was petitioned by them for agitated behavior, not making sense. Patient on admission was irritable and agitated and had never followed up at the [facility] program because her sister went there on a field trip. Patient states that she did not take the Zyprexa after she was discharged and never filled the prescription. Patient was difficult to interview on admission as she went from one topic to another, sex trafficking, seeing a counselor at [facility] and was stating that the UDS in the emergency room was contaminated with hand flooring professional. Patient complained about another patient on the unit being a " plasma bitch" and that she was not allowed to donate plasma to get money to assist her daughter. Patient was uncooperative during the interview and ended abruptly by getting up and yelling stating that she needed to be in court today to obtain custody of her daughter. Patient has had several admissions and was recently here in February 2017 for similar presentation secondary to methamphetamine use. Patient had been discharged on Zyprexa 2.5 mg at bedtime. Hospital Course: Patient refused to sign in voluntarily and was admitted on an involuntary basis and deferred her hearing. Routine laboratory studies and a medical consultation were obtained the patient was placed on routine observation and group and activity therapy were ordered. Patient was restarted on Zyprexa 5 mg at bedtime, she required Zyprexa as needed along with Ativan on multiple occasions due to her agitation, lability. Patient's dose of Zyprexa was titrated to 15 mg at bedtime, patient continued to have episodes where she would become quite tearful, angry. Patient was refusing referral for drug rehabilitation programs and was demanding discharge throughout the stay. Patient eventually responded to the Zyprexa, she was less irritable and her mood stabilized and her thinking cleared and she was goal-directed. Patient was able to discuss follow-up plans with a referral to [facility] for rehab and appropriate fashion. Patient became more cooperative on the unit, was less intrusive and was sleeping and eating well. Patient was able to participate in some groups and appropriate fashion. Patient reported no side effects from the medication and stated that her thinking had cleared. Patient cooperated with a referral to [facility] and requested transfer to [facility] for her follow-up after discharge. Patient was also begun on acyclovir and she was also started on Clariten. Laboratory Last Values WBC 8.6 k/uL (3.8-10.6) 03/12/17 09:12 RBC 4.19 m/uL (3.80-5.40) 03/12/17 09:12 Hgb 13.3 gm/dL (11.4-16.0) 03/12/17 09:12 Hct 39.0 % (34.0-46.0) 03/12/17 09:12 MCV 92.9 fL (80.0-100.0) 03/12/17 09:12 MCH 31.6 pg (25.0-35.0) 03/12/17 09:12 MCHC 34.0 g/dL (31.0-37.0) 03/12/17 09:12 RDW 13.0 % (11.5-15.5) 03/12/17 09:12 Plt Count 256 k/uL (150-450) 03/12/17 09:12 Neutrophils % 77 % 03/12/17 09:12 Lymphocytes % 14 % 03/12/17 09:12 Monocytes % 5 % 03/12/17 09:12 Eosinophils % 2 % 03/12/17 09:12 Basophils % 0 % 03/12/17 09:12 Neutrophils # 6.6 k/uL (1.3-7.7) 03/12/17 09:12 Lymphocytes # 1.2 k/uL (1.0-4.8) 03/12/17 09:12 Monocytes # 0.4 k/uL (0-1.0) 03/12/17 09:12 Eosinophils # 0.2 k/uL (0-0.7) 03/12/17 09:12 Basophils # 0.0 k/uL (0-0.2) 03/12/17 09:12 Sodium 145 mmol/L (137-145) 03/12/17 09:12 Potassium 4.3 mmol/L (3.5-5.1) 03/12/17 09:12 Chloride 109 mmol/L (98-107) H 03/12/17 09:12 Carbon Dioxide 26 mmol/L (22-30) 03/12/17 09:12 Anion Gap 10 mmol/L 03/12/17 09:12 BUN 20 mg/dL (7-17) H 03/12/17 09:12 Creatinine 0.78 mg/dL (0.52-1.04) 03/12/17 09:12 Est GFR (MDRD) Af Amer >60 (>60 ml/min/1.73 sqM) 03/12/17 09:12 Est GFR (MDRD) Non-Af >60 (>60 ml/min/1.73 sqM) 03/12/17 09:12 Glucose 107 mg/dL (74-99) H 03/12/17 09:12 Calcium 9.2 mg/dL (8.4-10.2) 03/12/17 09:12 Total Bilirubin 0.6 mg/dL (0.2-1.3) 03/12/17 09:12 AST 20 U/L (14-36) 03/12/17 09:12 ALT 33 U/L (9-52) 03/12/17 09:12 Alkaline Phosphatase 61 U/L (38-126) 03/12/17 09:12 Total Protein 6.7 g/dL (6.3-8.2) 03/12/17 09:12 Albumin 4.1 g/dL (3.5-5.0) 03/12/17 09:12 TSH 0.790 mIU/L (0.465-4.680) 03/12/17 09:12 Urine HCG, Qual Not Detected (Not Detectd) 03/11/17 14:50 Salicylates <1.0 mg/dL 03/11/17 14:10 Urine Opiates Screen Not Detected (NotDetected) 03/11/17 14:50 Ur Oxycodone Screen Not Detected (NotDetected) 03/11/17 14:50 Urine Methadone Screen Not Detected (NotDetected) 03/11/17 14:50 Ur Propoxyphene Screen Not Detected (NotDetected) 03/11/17 14:50 Acetaminophen <10.0 ug/mL 03/11/17 14:10 Ur Barbiturates Screen Not Detected (NotDetected) 03/11/17 14:50 U Tricyclic Antidepress Not Detected (NotDetected) 03/11/17 14:50 Ur Phencyclidine Scrn Not Detected (NotDetected) 03/11/17 14:50 Ur Amphetamines Screen Detected (NotDetected) H 03/11/17 14:50 U Methamphetamines Scrn Detected (NotDetected) H 03/11/17 14:50 U Benzodiazepines Scrn Detected (NotDetected) H 03/11/17 14:50 Urine Cocaine Screen Not Detected (NotDetected) 03/11/17 14:50 U Marijuana (THC) Screen Detected (NotDetected) H 03/11/17 14:50 Serum Alcohol <10 mg/dL 03/11/17 14:10 Discharge Mental Status:Appearance/Attitude: Patient was appropriately dressed and neatly groomed, made good eye contact and was cooperative. Behavior: Patient did not exhibit any psychomotor agitation or retardation. Speech/Language: Patient's speech was spontaneous and of normal volume and rhythm and she was coherent. Thought Process: Patient was goal-directed and there is no evidence of loose associations or flight of ideas and she was not circumstantial or tangential. Patient denied racing thoughts. Thought Content: Patient denied any auditory or visual hallucinations and no paranoid or delusional ideation was elicited. Patient stated that her thinking was much clearer, she felt more stable and was able to discuss discharge plans appropriately. Patient reported she was sleeping and eating well. Suicidal/Homicidal Ideation: Patient denied any current suicidal or homicidal ideation Sensorium/Cognition: Patient was alert and oriented to person, place, and time and her memory is grossly intact Mood/Affect: Patient's mood was stable and her affect was appropriate Insight/Judgement: Patient's insight and judgment are improved. Risk Assessment: Patient's risk for self-harm remains moderate due to her lack of compliance with medication and follow-up, use of drugs and minimal support system Discharge Plan: Patient will be discharged today and will go to [facility] for screening today and she has an intake appointment on April 08 at 9:30 in the morning at [facility]. Patient will continue on Zyprexa 15 mg at bedtime and she will be given a prescription for this as well as a prescription for Claritin 10 mg daily. Patient states that she has acyclovir at home and will continue to take her prior prescription as directed. Patient will follow-up with her PCP. Patient was advised to avoid any alcohol or drug use and to remain sober and to comply with her medication and follow-up appointments. Patient states she is going to live with a friend after discharge. Patient Condition at Discharge: Stable Plan - Discharge Summary New Discharge Prescriptions: New OLANZapine [ZyPREXA] 15 mg PO HS #14 tablet Loratadine [Claritin] 10 mg PO DAILY #28 tab Acyclovir [Zovirax] 400 mg PO BID cap Discharge Medication List Acyclovir [Zovirax] 400 mg PO BID cap 03/21/17 [Rx] Loratadine [Claritin] 10 mg PO DAILY #28 tab 03/21/17 [Rx] OLANZapine [ZyPREXA] 15 mg PO HS #14 tablet 03/21/17 [Rx] Follow up Appointment(s)/Referral(s): [facility] [Outside] - 04/08/17 9:30 am (Intake 04-08-17 at 9:30am Please bring full supply of all medications. ) [facility] [Outside] - 1 Week (Please complete walk-in intake at [facility] within 2 business days of hospital discharge. Hours: Mon, Wed, Thurs, Fri- 830-3 Tu- 1030-5 ) Héctor Arellano Jr, [Primary Care Provider] - 1-2 days Patient Instructions/Handouts: Brief Psychotic Disorder (DC), Methamphetamine Abuse (DC) Activity/Diet/Wound Care/Special Instructions: Activity and diet as tolerated. Avoid the use of street drugs and alcohol. Take all medications as prescribed. When you are in need of refills on your medications please contact your medical provider and/or outpatient psychiatrist to have this done. Please go to scheduled outpatient appointment for aftercare. If symptoms return or become worse call the crisis line at and/ or go to the nearest emergency room for an evaluation. Discharge Disposition: HOME SELF-CARE
[2017-03-22] MEDS ORDERED: ACYCLOVIR 200 MG CAP PO SCH ×2 (09:00)
== END 2017-03-21 12:36 | disposition home or self-care (01) | DRG 897 ==
LOC: EC 13:09 → 3MHU 17:15
PROVIDERS: ADMIT Psychiatry & Neurology Psychiatry; ATTEND Psychiatry & Neurology Psychiatry
DX: F15.159 Other stimulant abuse with stimulant-induced psychotic disorder, unspecified (principal); R45.851 Suicidal ideations; F31.9 Bipolar disorder, unspecified; B02.9 Zoster without complications; F17.210 Nicotine dependence, cigarettes, uncomplicated; F12.10 Cannabis abuse, uncomplicated; F90.9 Attention-deficit hyperactivity disorder, unspecified type; J30.2 Other seasonal allergic rhinitis; F19.10 Other psychoactive substance abuse, uncomplicated; Z91.19 Patient's noncompliance with other medical treatment and regimen; Z86.14 Personal history of Methicillin resistant Staphylococcus aureus infection
CPT/HCPCS: 36415; 80053; 80306; 80320; 81025; 82075; 83520; 84443; 85025; 93005; 99285

== ENCOUNTER 2017-04-04 02:32 | Inpatient (IN) | payer MEDICAID ==
[2017-04-04] MEDS ORDERED: MAGNESIUM HYDROXIDE 2,400 MG/10 ML CUP PO PRN (03:13)
[2017-04-04] MEDS ORDERED: MAG HYDROX/AL HYDROX/SIMETH 30 ML CUP PO PRN (03:13)
[2017-04-04] MEDS ORDERED: ACETAMINOPHEN TAB 325 MG TAB PO PRN (03:13)
[2017-04-04] MEDS ORDERED: ZIPRASIDONE 20 MG VIAL IM PRN (03:13)
[2017-04-04] MEDS ORDERED: LORazepam 2 MG/ML INJ IM PRN (03:22)
[2017-04-04] MEDS: NICOTINE 14MG/24HR PATCH TRANSDERM SCH (08:39)
[2017-04-04 09:06] LABS: Cholesterol 111 mg/dL (<200); HDL Cholesterol 56 mg/dL (40-60)
--- NOTE | 2017-04-04 10:59 | P.HP ---
Psychiatric H&P - . H&P Date: 04/04/17 History & Physical: Allergies Allergy/AdvReac Type Severity Reaction Status Date / Time No Known Allergies Allergy Verified 03/20/17 20:27 Vital Signs Temp 98.0 F 04/04/17 03:52 Pulse 90 04/04/17 03:52 Resp 18 04/04/17 03:52 BP 119/76 04/04/17 03:52 Pulse Ox 99 04/04/17 03:52 Intake & Output 04/03/17 04/04/17 04/04/17 18:59 06:59 18:59 Weight 67.268 kg Laboratory Last Values Triglycerides 72 mg/dL (<150) 04/04/17 08:09 Cholesterol 111 mg/dL (<200) 04/04/17 08:09 LDL Cholesterol, Calc 41 mg/dL (0-99) 04/04/17 08:09 HDL Cholesterol 56 mg/dL (40-60) 04/04/17 08:09 Lab results from OSH: Potassium 3.1 04/04/17 10:09 Identification: Patient is a 27-year-old female who was referred to [facility] from [facility] for treatment of psychosis in the setting of acute methamphetamine use. History of Present Illness: Per review of documentation, pt presented with flight of ideas and inability to be re-directed verbally. She made illogical statements and voiced some paranoid delusions that the government was out for her son. Also, when presented with the option of having [facility] assist in taking her to her scheduled [facility] appointment, pt began making vague verbal threats. She was noted to be responding to internal stimuli. Reportedly appeared disheveled and has not been sleeping. Upon presentation today, patient is laying in bed but easily aroused. She accompanied this provider to her office for evaluation and was calm and cooperative throughout visit. Pt now denies auditory and visual hallucinations. She does not appear to be responding to internal stimuli at this time. Also, no reported paranoid ideations or delusions. Her thought process is often tangential and at times displays some loose associations but able to follow with conversation. She is mostly focused on past incidences she witnessed involving others and drug use as well as discussing past family events. Regarding her current hospitalization, pt states that she is here because "I had nowhere to stay until my intake at [place]". She has an intake appointment scheduled for 04/08 to begin rehab. Pt denies recent use of methamphetamines, stating she has not used since last admission. However, her UDS was (+) for methamphetamine and amphetamine. She did states that she has previously been prescribed Adderall and Xanax and feels she needs these medications. Patient reports that she has been compliant with Zyprexa as prescribed on last hospitalization. Past Psychiatric History: Per the patient's chart she has had multiple admissions to [facility] related to methamphetamine use and subsequent psychosis; she was recently discharged on 03/21/17 with diagnosis of Methamphetamine induced psychosis and treated with Zyprexa 15mg QHS. Patient had been treated with Adderall in the past as well as Wellbutrin and Strattera. Past Medical/Surgical History: h/o multiple UTIs, hypokalemia on presentation to outside facility and given 40mEq KCl at that time Medications: Previous Rx's Medication Instructions Recorded Acyclovir [Zovirax] 400 mg PO BID cap 03/21/17 Loratadine [Claritin] 10 mg PO DAILY #28 tab 03/21/17 OLANZapine [ZyPREXA] 15 mg PO HS #14 tablet 03/21/17 Family History: state that her mother has had multiple suicide attempts in the past. Social History: Per the patient's last admission she had been born and raised in [place] and was raised by her maternal grandmother. She denied that she knew anything about her father. She reports that her mother is alive and their relationship is fair. She stated she had 1 sister. She attended high school until 11th grade. She left school because she did not accrue adequate credits to graduate to the 12th grade. This is a period where she became involved with drugs and alcohol and frequently missed school. Pt did eventually obtain her GED. She hasn't worked since February 2016 after she was fired for dropping a dirty urine. Patient reported at that time she had no source of financial support. at 20yo and 2 years later. Patient has 2 children who are both with their fathers. She is planning to regain custody following rehab. Substance Use History: Patient has a history of using methamphetamine for over 1 year; she also uses Adderall. She denies current use of Methamphetamine. However, patient's urine drug screen was positive for amphetamines and methamphetamine. Legal History: Per previous documentation, pt was arrested at 16yo for OWI related to alcohol use. She states that she does not have any current legal charges. Mental Status:Appearance/Attitude: Patient is dressed in a hospital gown, appears stated age and has good eye contact Behavior: Patient does not display any psychomotor retardation and/or agitation. She is cooperative throughout interview. Speech/Language: Patient's speech is of normal rate, rhythm and volume. Statements are coherent but not relevant to questioning at times. Thought Process: Tangential Thought Content: Patient denies any auditory or verbal hallucinations. Also, does not display any paranoid ideations or delusions at this time. Suicidal/Homicidal Ideation: Patient denies current suicidal ideation or homicidal ideation. Sensorium/Cognition: Patient is alert and oriented to person and place, further cognitive testing was not performed. Mood/Affect: Euthymic with appropriate affect Insight/Judgement: Patient's insight and judgment are impaired. Intellectual Functioning: average Strength/Weaknesses: willingness to seek treatment/continued drug use Assessment: 1. Methamphetamine induced psychosis 2. Hypokalemia 3. UTI prior to admission Plan: Patient was admitted on an involuntary basis, but later signed in voluntarily. Medicine team to assess patient's hypokalemia from initial presentation and treat accordingly if still present. Patient was ordered group and activity therapy. She is placed on routine observation. Will continue her on Zyprexa 15mg QHS as previously prescribed. Also, will start Macrodantin 100mg QID x 10 days as patient was sent from [facility] with a prescription for this medication to treat diagnosed UTI. Has not had any behavioral outbursts as of yet, but has PRN Geodon and Ativan for agitation. Plan to discharge to [facility] as patient has an appointment for intake on . 04/04/17 16:47
[2017-04-04 12:17] LABS: Hemoglobin A1C 5.2 % (4.2-6.1)
[2017-04-04] MEDS: LORazepam 1 MG TAB PO PRN ×2 (13:36→22:35)
[2017-04-04] MEDS: NITROFURANTOIN MONOHYD/M-CRYST 100 MG CAP PO SCH (20:37)
[2017-04-04] MEDS ORDERED: OLANZapine 5 MG TAB PO SCH (21:00)
[2017-04-05 06:16] VITALS: BP 117/55; PULSE 78; RESP 18; TEMP 97.8
[2017-04-05] MEDS: NITROFURANTOIN MONOHYD/M-CRYST 100 MG CAP PO SCH (08:32)
[2017-04-05] MEDS: NICOTINE 14MG/24HR PATCH TRANSDERM SCH (08:32)
[2017-04-05 10:27] LABS: Basophils % (A) 0 %; CH 31.9; CHCM 32.8; Eosinophils # (A) 0.2 k/uL (0-0.7); Eosinophils % (A) 2 %; HCT 40.8 % (34.0-46.0); HDW 2.18; HGB 13.1 gm/dL (11.4-16.0); Luc # (Auto) 0.08; Luc % (Auto) 1; Lymphocytes # (A) 1.4 k/uL (1.0-4.8); Lymphocytes % (A) 20 %; MCH 31.3 pg (25.0-35.0); MCHC 32.1 g/dL (31.0-37.0); MCV 97.5 fL (80.0-100.0); Mean Platelet Volume 7.4; Monocytes # (A) 0.4 k/uL (0-1.0); Monocytes % (A) 6 %; Neutrophils # (A) 4.8 k/uL (1.3-7.7); Neutrophils % (A) 70 %; RBC 4.19 m/uL (3.80-5.40); RDW 14.1 % (11.5-15.5); WBC 6.9 k/uL (3.8-10.6)
[2017-04-05 11:00] LABS: ALT 27 U/L (9-52); AST 17 U/L (14-36); Alkaline Phosphatase 63 U/L (38-126); Anion Gap 8 mmol/L; Blood Urea Nitrogen 12 mg/dL (7-17); Carbon Dioxide 26 mmol/L (22-30); Chloride 107 mmol/L (98-107); Glucose 64 mg/dL (74-99); Non-African American GFR(MDRD) >60 (>60 ml/min/1.73 sqM); Potassium 4.4 mmol/L (3.5-5.1); Sodium 141 mmol/L (137-145); Total Bilirubin 0.2 mg/dL (0.2-1.3); Total Protein 6.7 g/dL (6.3-8.2)
[2017-04-05] MEDS: LORazepam 1 MG TAB PO PRN (11:10)
--- NOTE | 2017-04-05 14:11 | P.DS ---
Providers Date of admission: 04/04/17 02:51 Expected date of discharge: 04/05/17 Attending physician: Yoav Pina DO Consults: 04/04/17 03:13 Consult Physician Routine Consulting Provider: Ronald Moreno Reason/Comments: h&p Do you want consulting provider notified?: Yes, Notify in am Primary care physician: Stated None - Discharge Diagnosis(es) (1) Other stimulant abuse with stimulant-induced psychotic disorder, unspecified Current Visit: Yes Status: Acute (2) Methamphetamine abuse Current Visit: Yes Status: Chronic Priority: High Hospital Course: Patient was admitted to [facility] on an involuntary basis as she was under a petition. She was reportedly making verbal threats and expressing delusions/ hallucinations prior to admission. However, on presentation to the mental health unit, patient was calm and cooperative. She denied hallucinations and did not appear to be responding to internal stimuli at time of initial psychiatric evaluation. Patient subsequently, signed in on a voluntary basis. She stated that she was only here to await a bed at [facility], which had been arranged for 04/08/17. She denied recent use of methamphetamine but UDS was (+) for methamphetamine and amphetamine. Patient was continued on her home medication of Olanzapine 10mg QHS and tolerated this medication well. She slept well, had a good appetite and no behavioral outbursts while on the unit. Pt also participated in group activities. On 04/05/17 she requested to be discharged. As patient was not actively psychotic, not in danger of harm to herself or others and able to take care of herself, she was felt to be stable for discharge home. Encouraged patient to continue to abstain from use of any stimulants and follow-through with [facility] intake as scheduled. She voiced understanding and agreement. Also, will prescribe Nicotine patches for continued smoking cessation on an outpatient basis. Patient Condition at Discharge: Stable Plan - Discharge Summary New Discharge Prescriptions: New Nicotine 14Mg/24Hr Patch [Habitrol] 1 patch TRANSDERM DAILY #30 patch Nitrofurantoin Monohyd/M-Cryst [Macrobid] 100 mg PO BID #20 cap Continue Loratadine [Claritin] 10 mg PO DAILY #28 tab Acyclovir [Zovirax] 400 mg PO BID #60 cap OLANZapine [ZyPREXA] 15 mg PO HS #14 tablet Discharge Medication List Loratadine [Claritin] 10 mg PO DAILY #28 tab 03/21/17 [Rx] Acyclovir [Zovirax] 400 mg PO BID #60 cap 04/05/17 [Rx] Nicotine 14Mg/24Hr Patch [Habitrol] 1 patch TRANSDERM DAILY #30 patch 04/05/17 [ Rx] Nitrofurantoin Monohyd/M-Cryst [Macrobid] 100 mg PO BID #20 cap 04/05/17 [Rx] OLANZapine [ZyPREXA] 15 mg PO HS #14 tablet 04/05/17 [Rx] Follow up Appointment(s)/Referral(s): [facility] [Outside] - 04/08/17 9:30 am (Intake 04/08/17 at 9: 30am) Ronald Moreno MD [STAFF PHYSICIAN] - 1 Week Patient Instructions/Handouts: How to Stop Smoking (DC), Brief Psychotic Disorder (DC), Methamphetamine Abuse (DC) Activity/Diet/Wound Care/Special Instructions: Take all medications as prescribed and keep your follow up appointment. Do not drink alcohol or use any street drugs. Crisis Line [phone] Discharge Disposition: HOME SELF-CARE
--- NOTE | 2017-04-05 14:16 | P.PN ---
Progress Note - Text Progress Note Date: 04/05/17 27yo CF admitted on 04/04/17 after presenting with psychosis in the context of methamphetamine use. Last 24hrs: Upon presentation this morning patient continues to be calm and cooperative. No behavioral outbursts overnight. She has been compliant with medications and no reported adverse effects. Sleeping well and with good appetite. Denies AVH and does not appear to be responding to internal stimuli. Pt is requesting to be discharged so that she can pack her items and be prepared for intake at [facility] on Saturday. MSE: Pt appears stated age, well-groomed and ambulating without assistance. Her speech is of normal volume and rate. Pt has good eye contact. Mood appears to be euthymic and affect appropriate. Pt denies hallucinations. She denies SI and HI at this time. Thought process is linear and logical. Memory is grossly intact. Judgment and insight is limited. Assessment: 1. Methamphetamine induced psychosis 2. Methamphetamine use disorder Plan: Continue current medication regimen. Discharge home today. Encouraged to maintain abstinence from illicit substances. Pt to follow-up with [facility] on 04/08/17.
== END 2017-04-05 13:42 | disposition home or self-care (01) | DRG 776 ==
LOC: 3MHU 02:51
PROVIDERS: ADMIT Psychiatry & Neurology Psychiatry; ATTEND Psychiatry & Neurology Psychiatry
DX: F15.159 Other stimulant abuse with stimulant-induced psychotic disorder, unspecified (principal); N39.0 Urinary tract infection, site not specified; E87.6 Hypokalemia; F17.200 Nicotine dependence, unspecified, uncomplicated; Z79.899 Other long term (current) drug therapy
CPT/HCPCS: 80053; 80061; 83036; 84443; 85025

== ENCOUNTER 2017-04-08 12:10 | Inpatient (IN) | payer MEDICAID ==
--- NOTE | 2017-04-08 12:38 | ED ---
General Adult HPI - General Chief complaint: Psychiatric Symptoms Stated complaint: Mental Health Time Seen by Provider: 04/08/17 12:28 Source: patient, RN notes reviewed, old records reviewed Mode of arrival: EMS Limitations: no limitations - History of Present Illness Initial comments: This is a 27-year-old female to the ER for evaluation. This patient is presenting to the ER for evaluation of mental health. Patient denies drugs or alcohol. Patient is agitated, mildly combative and a poor historian at this point. - Related Data Previous Rx's Medication Instructions Recorded Loratadine [Claritin] 10 mg PO DAILY #28 tab 03/21/17 Acyclovir [Zovirax] 400 mg PO BID #60 cap 04/05/17 Nicotine 14Mg/24Hr Patch [Habitrol] 1 patch TRANSDERM DAILY #30 patch 04/05/17 Nitrofurantoin Monohyd/M-Cryst 100 mg PO BID #20 cap 04/05/17 [Macrobid] OLANZapine [ZyPREXA] 15 mg PO HS #14 tablet 04/05/17 Allergies Allergy/AdvReac Type Severity Reaction Status Date / Time No Known Allergies Allergy Verified 04/08/17 12:50 Review of Systems ROS Statement: Those systems with pertinent positive or pertinent negative responses have been documented in the HPI. ROS Other: All systems not noted in ROS Statement are negative. Past Medical History Past Medical History: No Reported History Additional Past Medical History / Comment(s): hx herpes, IUD surgically removed History of Any Multi-Drug Resistant Organisms: MRSA Date of last positivie culture/infection: 2013 MDRO Source:: lt leg, lt axillae Past Surgical History: Section Past Anesthesia/Blood Transfusion Reactions: Postoperative Nausea & Vomiting ( PONV) Past Psychological History: ADD/ADHD, Bipolar Smoking Status: Current every day smoker - Past Family History Mother Additional Family Medical History / Comment(s): blood clot main artery neck General Exam Limitations: no limitations General appearance: alert, in no apparent distress Head exam: Present: atraumatic, normocephalic, normal inspection Eye exam: Present: normal appearance, PERRL, EOMI. Absent: scleral icterus, conjunctival injection, periorbital swelling ENT exam: Present: normal exam, mucous membranes moist Neck exam: Present: normal inspection. Absent: tenderness, meningismus, lymphadenopathy Respiratory exam: Present: normal lung sounds bilaterally. Absent: respiratory distress, wheezes, rales, rhonchi, stridor Cardiovascular Exam: Present: regular rate, normal rhythm, normal heart sounds. Absent: systolic murmur, diastolic murmur, rubs, gallop, clicks GI/Abdominal exam: Present: soft, normal bowel sounds. Absent: distended, tenderness, guarding, rebound, rigid Extremities exam: Present: normal inspection, full ROM, normal capillary refill. Absent: tenderness, pedal edema, joint swelling, calf tenderness Back exam: Present: normal inspection Neurological exam: Present: alert, oriented X3, CN II-XII intact Psychiatric exam: Present: normal affect, normal mood Skin exam: Present: warm, dry, intact, normal color. Absent: rash Course Vital Signs 04/08/17 04/08/17 12:12 17:38 Temperature 98.6 F 97.9 F Pulse Rate 95 93 Respiratory 18 17 Rate Blood Pressure 142/95 113/57 O2 Sat by Pulse 96 98 Oximetry - Reevaluation(s) Reevaluation #1: 04/08/17 12:38 Patient is medically clear for psychiatric evaluation Medical Decision Making - Medical Decision Making 27-year-old female the ER for psychiatric evaluation. Patient to be admitted for psychiatric evaluation and treatment - Lab Data Result diagrams: 04/09/17 09:18 04/09/17 09:18 Lab Results 04/08/17 Range/Units 12:39 Urine Opiates Screen Not Detected (NotDetected) Ur Oxycodone Screen Not Detected (NotDetected) Urine Methadone Screen Not Detected (NotDetected) Ur Propoxyphene Screen Not Detected (NotDetected) Ur Barbiturates Screen Not Detected (NotDetected) U Tricyclic Antidepress Not Detected (NotDetected) Ur Phencyclidine Scrn Not Detected (NotDetected) Ur Amphetamines Screen Not Detected (NotDetected) U Methamphetamines Scrn Not Detected (NotDetected) U Benzodiazepines Scrn Not Detected (NotDetected) Urine Cocaine Screen Not Detected (NotDetected) U Marijuana (THC) Screen Not Detected (NotDetected) Disposition Clinical Impression: Methamphetamine abuse, Psychosis, Other stimulant abuse with stimulant-induced psychotic disorder, unspecified, [place] Disposition: TRANSFER TO PSYCH HOSP/UNIT Condition: Fair
[2017-04-08] MEDS ORDERED: LORazepam 1 MG TAB PO STA (14:10)
[2017-04-08] MEDS ORDERED: NICOTINE 14MG/24HR PATCH TRANSDERM STA (16:04)
[2017-04-08] MEDS ORDERED: ACETAMINOPHEN TAB 325 MG TAB PO PRN (18:02)
[2017-04-08] MEDS ORDERED: ZIPRASIDONE 20 MG VIAL IM PRN (18:02)
[2017-04-08] MEDS ORDERED: MAG HYDROX/AL HYDROX/SIMETH 30 ML CUP PO PRN (18:02)
[2017-04-08] MEDS: NITROFURANTOIN MONOHYD/M-CRYST 100 MG CAP PO SCH (20:03)
[2017-04-08] MEDS: ACYCLOVIR 200 MG CAP PO SCH (20:03)
[2017-04-08] MEDS: MAGNESIUM HYDROXIDE 2,400 MG/10 ML CUP PO PRN (20:04)
[2017-04-08] MEDS ORDERED: OLANZapine 5 MG TAB PO SCH (21:00)
[2017-04-09] MEDS: NICOTINE 14MG/24HR PATCH TRANSDERM SCH (09:21)
[2017-04-09] MEDS: LORATADINE 10 MG TAB PO SCH (09:21)
[2017-04-09] MEDS: ACYCLOVIR 200 MG CAP PO SCH ×2 (09:21→20:46)
[2017-04-09] MEDS: NITROFURANTOIN MONOHYD/M-CRYST 100 MG CAP PO SCH ×2 (09:21→20:46)
[2017-04-09 09:57] LABS: ALT 22 U/L (9-52); AST 17 U/L (14-36); Alkaline Phosphatase 63 U/L (38-126); Anion Gap 9 mmol/L; Blood Urea Nitrogen 13 mg/dL (7-17); Calcium 9.1 mg/dL (8.4-10.2); Carbon Dioxide 25 mmol/L (22-30); Chloride 106 mmol/L (98-107); Glucose 60 mg/dL (74-99); Non-African American GFR(MDRD) >60 (>60 ml/min/1.73 sqM); Potassium 4.6 mmol/L (3.5-5.1); Sodium 140 mmol/L (137-145); Total Bilirubin 0.2 mg/dL (0.2-1.3); Total Protein 6.5 g/dL (6.3-8.2)
[2017-04-09 10:00] LABS: Basophils % (A) 1 %; CH 31.2; CHCM 31.9; Eosinophils # (A) 0.2 k/uL (0-0.7); Eosinophils % (A) 3 %; HCT 40.7 % (34.0-46.0); HDW 2.19; HGB 12.9 gm/dL (11.4-16.0); Luc # (Auto) 0.12; Luc % (Auto) 2; Lymphocytes # (A) 1.5 k/uL (1.0-4.8); Lymphocytes % (A) 20 %; MCH 31.1 pg (25.0-35.0); MCHC 31.7 g/dL (31.0-37.0); MCV 97.9 fL (80.0-100.0); Mean Platelet Volume 6.7; Monocytes # (A) 0.5 k/uL (0-1.0); Monocytes % (A) 6 %; Neutrophils # (A) 5.1 k/uL (1.3-7.7); Neutrophils % (A) 69 %; RBC 4.15 m/uL (3.80-5.40); RDW 13.2 % (11.5-15.5); WBC 7.4 k/uL (3.8-10.6); WBC (Perox) 7.07
--- NOTE | 2017-04-09 12:38 | P.CONS ---
History of Present Illness - Reason for Consult Consult date: 04/09/17 Medical Management - Chief Complaint Psychosis - History of Present Illness 27 year old female who was recently discharged from the mental health unit at [facility]. She was admitted from April 04-. At that time, her urine drug screen was positive for methamphetamines. She was discharged to [facility] for rehab. Apparently, [facility] sent to the emergency room because of psychosis. ER notes indicate the patient was agitated and combative. The patient has a history of drug abuse and also is a cigarette smoker. She has a history of ADD/ADHS, bipolar, MRSA, and herpes. The patient was seen and examined this morning on rounds with Dr. Moreno. The patient states she had an anxiety attack yesterday at [facility] because they will not give her Xanax or Adderall. The patient is requesting to go back to [facility] today. The patient denies any medical concerns or complaints. She denies shortness of breath or chest pain. She denies nausea or vomiting. Patient maintaining oxygen saturation greater than 92% on room air. Her vital signs are stable. Toxicology results are negative. Lab work was reviewed. Her glucose was low this morning at 60. Spoke with nursing and asked them to repeat her capillary glucose. Patient is a smoker and has a nicotine patch ordered. Review of Systems Those systems with pertinent positive or pertinent negative responses have been documented in the HPI Past Medical History Past Medical History: No Reported History Additional Past Medical History / Comment(s): hx herpes, IUD surgically removed History of Any Multi-Drug Resistant Organisms: MRSA Year Discovered:: 2013 MDRO Source:: lt leg, lt axillae Past Surgical History: Section Past Anesthesia/Blood Transfusion Reactions: Postoperative Nausea & Vomiting ( PONV) Past Psychological History: ADD/ADHD, Bipolar Smoking Status: Current every day smoker - Past Family History Mother Additional Family Medical History / Comment(s): blood clot main artery neck Medications and Allergies Home Medications Medication Instructions Recorded Confirmed Type Loratadine [Claritin] 10 mg PO DAILY #28 tab 03/21/17 04/08/17 Rx Acyclovir [Zovirax] 400 mg PO BID #60 cap 04/05/17 04/08/17 Rx Nicotine 14Mg/24Hr Patch [Habitrol] 1 patch TRANSDERM DAILY #30 patch 04/05/17 04/08/17 Rx Nitrofurantoin Monohyd/M-Cryst 100 mg PO BID #20 cap 04/05/17 04/08/17 Rx [Macrobid] OLANZapine [ZyPREXA] 15 mg PO HS #14 tablet 04/05/17 04/08/17 Rx Allergies Allergy/AdvReac Type Severity Reaction Status Date / Time No Known Allergies Allergy Verified 04/08/17 12:50 Physical Exam Vitals: Vital Signs Temp Pulse Pulse Resp BP BP Pulse Ox 04/09/17 07:08 98.6 F 83 16 111/70 04/08/17 18:02 98.2 F 97 16 124/84 99 04/08/17 17:38 97.9 F 93 17 113/57 98 Intake and Output 04/08/17 04/09/17 04/09/17 22:59 06:59 14:59 Other: Weight 68.039 kg GENERAL: Alert and oriented. Appears in no acute distress. Pleasant and cooperative. RESPIRATORY: Lungs clear bilaterally. No use of accessory muscles. Patient maintaining oxygen saturation greater than 92%. CARDIOVASCULAR: S1 and S2 noted. No murmurs auscultated. No JVD noted. EXTREMITIES: No edema noted. Palpable pedal pulses +2. ABDOMEN: No distention noted. Abdomen soft and round. Normal active bowel sounds auscultated 4 quadrants. No pain or tenderness noted upon palpation. Results CBC & Chem 7: 04/09/17 09:18 04/09/17 09:18 Labs: Abnormal Lab Results - Last 24 Hours (Table) 04/09/17 Range/Units 09:18 Glucose 60 L (74-99) mg/dL Assessment and Plan Plan: ASSESSMENT: -History of methamphetamine abuse -History of cannabis use disorder -History of ADD/ADHD -Nicotine dependence, patient smokes cigarettes (1/2 PPD) -Bipolar disorder -Hypoglycemia PLAN: -Psychiatric care per Dr. Pina -Spoke with patients RN, will recheck blood sugar -Monitor for hypoglycemic episodes -Nicotine patch -Monitor vital signs and address as appropriate The above impression and plan of care have been discussed and directed by signing physician. Ana María Love, nurse practitioner, acting as scribe for signing physician.
[2017-04-09 12:39] LABS: Glucose,Whole Blood 87 mg/dL (75-99)
[2017-04-09] MEDS: LORazepam 1 MG TAB PO PRN ×2 (13:04→20:47)
--- NOTE | 2017-04-09 13:19 | P.HP ---
Psychiatric H&P - . H&P Date: 04/09/17 History & Physical: Allergies Allergy/AdvReac Type Severity Reaction Status Date / Time No Known Allergies Allergy Verified 04/08/17 12:50 Vital Signs Temp 98.6 F 04/09/17 07:08 Pulse 83 04/09/17 07:08 Resp 16 04/09/17 07:08 BP 111/70 04/09/17 07:08 Pulse Ox 99 04/08/17 18:02 Intake & Output 04/08/17 04/09/17 04/09/17 18:59 06:59 18:59 Weight 68.039 kg Laboratory Last Values WBC 7.4 k/uL (3.8-10.6) 04/09/17 09:18 RBC 4.15 m/uL (3.80-5.40) 04/09/17 09:18 Hgb 12.9 gm/dL (11.4-16.0) 04/09/17 09:18 Hct 40.7 % (34.0-46.0) 04/09/17 09:18 MCV 97.9 fL (80.0-100.0) 04/09/17 09:18 MCH 31.1 pg (25.0-35.0) 04/09/17 09:18 MCHC 31.7 g/dL (31.0-37.0) 04/09/17 09:18 RDW 13.2 % (11.5-15.5) 04/09/17 09:18 Plt Count 247 k/uL (150-450) 04/09/17 09:18 Neutrophils % 69 % 04/09/17 09:18 Lymphocytes % 20 % 04/09/17 09:18 Monocytes % 6 % 04/09/17 09:18 Eosinophils % 3 % 04/09/17 09:18 Basophils % 1 % 04/09/17 09:18 Neutrophils # 5.1 k/uL (1.3-7.7) 04/09/17 09:18 Lymphocytes # 1.5 k/uL (1.0-4.8) 04/09/17 09:18 Monocytes # 0.5 k/uL (0-1.0) 04/09/17 09:18 Eosinophils # 0.2 k/uL (0-0.7) 04/09/17 09:18 Basophils # 0.0 k/uL (0-0.2) 04/09/17 09:18 Sodium 140 mmol/L (137-145) 04/09/17 09:18 Potassium 4.6 mmol/L (3.5-5.1) 04/09/17 09:18 Chloride 106 mmol/L (98-107) 04/09/17 09:18 Carbon Dioxide 25 mmol/L (22-30) 04/09/17 09:18 Anion Gap 9 mmol/L 04/09/17 09:18 BUN 13 mg/dL (7-17) 04/09/17 09:18 Creatinine 0.77 mg/dL (0.52-1.04) 04/09/17 09:18 Est GFR (MDRD) Af Amer >60 (>60 ml/min/1.73 sqM) 04/09/17 09:18 Est GFR (MDRD) Non-Af >60 (>60 ml/min/1.73 sqM) 04/09/17 09:18 Glucose 60 mg/dL (74-99) L 04/09/17 09:18 POC Glucose (mg/dL) 87 mg/dL (75-99) 04/09/17 12:38 POC Glu Offc Spec ID Gladys Cole 04/09/17 12:38 Calcium 9.1 mg/dL (8.4-10.2) 04/09/17 09:18 Total Bilirubin 0.2 mg/dL (0.2-1.3) 04/09/17 09:18 AST 17 U/L (14-36) 04/09/17 09:18 ALT 22 U/L (9-52) 04/09/17 09:18 Alkaline Phosphatase 63 U/L (38-126) 04/09/17 09:18 Total Protein 6.5 g/dL (6.3-8.2) 04/09/17 09:18 Albumin 3.8 g/dL (3.5-5.0) 04/09/17 09:18 TSH 0.698 mIU/L (0.465-4.680) 04/09/17 09:18 Urine Opiates Screen Not Detected (NotDetected) 04/08/17 12:39 Ur Oxycodone Screen Not Detected (NotDetected) 04/08/17 12:39 Urine Methadone Screen Not Detected (NotDetected) 04/08/17 12:39 Ur Propoxyphene Screen Not Detected (NotDetected) 04/08/17 12:39 Ur Barbiturates Screen Not Detected (NotDetected) 04/08/17 12:39 U Tricyclic Antidepress Not Detected (NotDetected) 04/08/17 12:39 Ur Phencyclidine Scrn Not Detected (NotDetected) 04/08/17 12:39 Ur Amphetamines Screen Not Detected (NotDetected) 04/08/17 12:39 U Methamphetamines Scrn Not Detected (NotDetected) 04/08/17 12:39 U Benzodiazepines Scrn Not Detected (NotDetected) 04/08/17 12:39 Urine Cocaine Screen Not Detected (NotDetected) 04/08/17 12:39 U Marijuana (THC) Screen Not Detected (NotDetected) 04/08/17 12:39 04/09/17 13:07 Identification: Patient is a 27-year-old female who presented to ED with bizarre and agitated behavior. History of Present Illness: Patient discharged on 04/05/17 with diagnosis of Methamphetamine Induced Psychosis with prescription for Zyprexa 15mg QHS. It is unclear if patient was compliant with medication over the weekend. She presented to [facility] for initial intake as planned on Saturday, 04/08; however, she was denied service due to her mental state at that time and need for further psychiatric stabilization. UDS in ED was negative and patient denies using methamphetamines over the weekend. Upon presentation this morning , patient was resting peacefully in her room but easily awakened. She was pleasant and cooperative with this provider. She now denies SI, HI and AVH. Pt states that she is still interested in participating in rehab upon discharge from our facility. She cannot give any inciting events that would have caused her presenting psychosis other than stating her dislike for certain mental health staff she has encountered on an outpatient basis. Past Psychiatric History: Per the patient's chart she has had multiple admissions to [facility] related to methamphetamine use and subsequent psychosis; she was recently discharged on 04/05/17 with diagnosis of Methamphetamine induced psychosis and treated with Zyprexa 15mg QHS. Patient had been treated with Adderall in the past as well as Wellbutrin and Strattera. Past Medical/Surgical History: h/o multiple UTI Medications: Previous Rx's Medication Instructions Recorded Loratadine [Claritin] 10 mg PO DAILY #28 tab 03/21/17 Acyclovir [Zovirax] 400 mg PO BID #60 cap 04/05/17 Nicotine 14Mg/24Hr Patch [Habitrol] 1 patch TRANSDERM DAILY #30 patch 04/05/17 Nitrofurantoin Monohyd/M-Cryst 100 mg PO BID #20 cap 04/05/17 [Macrobid] OLANZapine [ZyPREXA] 15 mg PO HS #14 tablet 04/05/17 Family History: state that her mother has had multiple suicide attempts in the past. Social History: Per the patient's previous admission she had been born and raised in [place] and was raised by her maternal grandmother. She denied that she knew anything about her father. She reports that her mother is alive and their relationship is fair. She stated she had 1 sister. She attended high school until 11th grade. She left school because she did not accrue adequate credits to graduate to the 12th grade. This is a period where she became involved with drugs and alcohol and frequently missed school. Pt did eventually obtain her GED. She hasn't worked since February 2016 after she was fired for dropping a dirty urine. Patient reported at that time she had no source of financial support. at 20yo and 2 years later. Patient has 2 children who are both with their fathers. She is planning to regain custody following rehab. Substance Use History: Patient has a history of using methamphetamine for over 1 year; she also uses Adderall. She denies current use of Methamphetamine. Legal History: Per previous documentation, pt was arrested at 16yo for OWI related to alcohol use. She states that she does not have any current legal charges. Mental Status:Appearance/Attitude: Patient is fairly well-groomed except for hair being uncombed, appears stated age and has good eye contact Behavior: Patient does not display any psychomotor retardation and/or agitation. She is cooperative throughout interview. Speech/Language: Patient's speech is of normal rate, rhythm and volume. Statements are coherent and spontaneous Thought Process: Linear and logical Thought Content: Patient denies any auditory or visual hallucinations. Also, does not display any paranoid ideations or delusions at this time. Suicidal/Homicidal Ideation: Patient denies current suicidal ideation or homicidal ideation. Sensorium/Cognition: Patient is alert and oriented Mood/Affect: Euthymic with appropriate affect Insight/Judgement: Patient's insight and judgment are impaired. Intellectual Functioning: average Strength/Weaknesses: willingness to seek treatment/extensive h/o drug use Assessment: 1. Psychosis unspecified 2.UTI prior to admission (finishing antibiotic course) Plan: Patient was admitted on an involuntary basis, but later signed in voluntarily. Patient was ordered group and activity therapy. She is placed on routine observation. Will discontinue Zyprexa and start Abilify 10mg QHS, with plan to initiate Abilify Maintena prior to discharge as there is some concern for compliance with medications. Also, will continue Macrobid as prescribed on previous hospitalization until antibiotic course is complete. Has not had any behavioral outbursts as of yet, but has PRN Geodon and Ativan for agitation. Speak with SW regarding discharge planning and possibility of rehab placement upon discharge.
[2017-04-09] MEDS: ARIPiprazole 10 MG TAB PO SCH (20:46)
[2017-04-10] MEDS: NICOTINE 14MG/24HR PATCH TRANSDERM SCH (08:24)
[2017-04-10] MEDS: NITROFURANTOIN MONOHYD/M-CRYST 100 MG CAP PO SCH ×2 (08:25→20:57)
[2017-04-10] MEDS: LORATADINE 10 MG TAB PO SCH (08:25)
[2017-04-10] MEDS: ACYCLOVIR 200 MG CAP PO SCH ×2 (08:25→20:57)
[2017-04-10] MEDS: LORazepam 1 MG TAB PO PRN ×2 (08:26→15:08)
--- NOTE | 2017-04-10 18:08 | P.PN ---
Progress Note - Text Progress Note Date: 04/10/17 27yo CF admitted on 04/08/17 after presenting with psychosis and (-) UDS. Last 24hrs: Upon presentation this morning patient continues to be calm and cooperative. No behavioral outbursts overnight. She has been compliant with medications and no reported adverse effects. States that she likes the Abilify as it "makes me feel alive". Sleeping well and with good appetite. Denies AVH and does not appear to be responding to internal stimuli. Denies any cravings for methamphetamines. States that she is still interested in participating in rehab after discharge from our unit. MSE: Pt appears stated age, well-groomed and ambulating without assistance. Her speech is of normal volume and rate. Pt has good eye contact. Mood appears to be euthymic and affect appropriate. Pt denies hallucinations. She denies SI and HI at this time. Thought process is linear and logical. Memory is grossly intact. Judgment and insight is limited. Assessment: 1. Psychosis Unspecified Plan: Continue current medication regimen. Plan to administer Abilify Maintena 400mg IM prior to discharge. Encouraged continue participation in group activities. Continue to monitor for safety. Discuss discharge planning with treatment team. Patient to contact rehab facilities to obtain information about attending following discharge and possibly schedule intake.
[2017-04-10] MEDS: ARIPiprazole 10 MG TAB PO SCH (20:57)
[2017-04-11] MEDS: LORATADINE 10 MG TAB PO SCH (08:20)
[2017-04-11] MEDS: ACYCLOVIR 200 MG CAP PO SCH ×2 (08:20→20:36)
[2017-04-11] MEDS: NITROFURANTOIN MONOHYD/M-CRYST 100 MG CAP PO SCH ×2 (08:20→20:36)
[2017-04-11] MEDS: NICOTINE 14MG/24HR PATCH TRANSDERM SCH (08:20)
[2017-04-11] MEDS: MAGNESIUM HYDROXIDE 2,400 MG/10 ML CUP PO PRN (09:58)
[2017-04-11] MEDS: LORazepam 1 MG TAB PO PRN ×2 (10:10→16:32)
[2017-04-11 11:16] LABS: Glucose,Whole Blood 102 mg/dL (75-99)
--- NOTE | 2017-04-11 16:55 | P.PN ---
Progress Note - Text Progress Note Date: 04/11/17 27yo CF admitted on 04/08/17 after presenting with psychosis and (-) UDS. Last 24hrs: Upon presentation this morning patient continues to be calm and cooperative. No behavioral outbursts overnight. She has been compliant with medications and no reported adverse effects. Sleeping well and with good appetite. Denies AVH and does not appear to be responding to internal stimuli. States that she found an opening for intake at [facility] for next Saturday and planning to follow through with this after discharge. MSE: Pt appears stated age, well-groomed and ambulating without assistance. Her speech is of normal volume and rate. Pt has good eye contact. Mood appears to be euthymic and affect appropriate. Pt denies hallucinations. She denies SI and HI at this time. Thought process is linear and logical. Memory is grossly intact. Judgment and insight is limited. Assessment: 1. Psychosis Unspecified Plan: Continue current medication regimen. Administer Abilify Maintena 400mg IM today. Encouraged continued participation in group activities. Continue to monitor for safety. Discuss discharge planning with treatment team.
[2017-04-11] MEDS ORDERED: ARIPiprazole 400 MG VIAL IM ONE (17:00)
[2017-04-11] MEDS: ARIPiprazole 10 MG TAB PO SCH (20:37)
[2017-04-12 06:55] VITALS: BP 111/72; PULSE 77; RESP 12; TEMP 97.8
[2017-04-12] MEDS: NITROFURANTOIN MONOHYD/M-CRYST 100 MG CAP PO SCH (08:25)
[2017-04-12] MEDS: ACYCLOVIR 200 MG CAP PO SCH (08:25)
[2017-04-12] MEDS: LORATADINE 10 MG TAB PO SCH (08:25)
[2017-04-12] MEDS: NICOTINE 14MG/24HR PATCH TRANSDERM SCH (08:26)
[2017-04-12] MEDS: LORazepam 1 MG TAB PO PRN (09:22)
--- NOTE | 2017-04-13 02:57 | P.PN ---
Progress Note - Text Progress Note Date: 04/12/17 27yo CF admitted on 04/08/17 after presenting with psychosis and (-) UDS. Last 24hrs: Upon presentation this morning patient continues to be calm and cooperative. No behavioral outbursts overnight. She has been compliant with medications and no reported adverse effects. Given one time injection of Abilify Maintena 400mg and tolerating well. Sleeping well and with good appetite. Denies AVH and does not appear to be responding to internal stimuli. States that she is looking forward to intake at [facility] in [place] next Saturday. MSE: Pt appears stated age, well-groomed and ambulating without assistance. Her speech is of normal volume and rate. Pt has good eye contact. Mood appears to be euthymic and affect appropriate. Pt denies hallucinations. She denies SI and HI at this time. Thought process is linear and logical. Memory is grossly intact. Judgment and insight is limited. Assessment: 1. Psychosis Unspecified Plan: Continue current medication regimen. Discharge today
== END 2017-04-12 14:46 | disposition home or self-care (01) | DRG 751 ==
LOC: EC 12:10 → 3MHU 17:29
PROVIDERS: ADMIT Psychiatry & Neurology Psychiatry; ATTEND Psychiatry & Neurology Psychiatry
DX: F29 Unspecified psychosis not due to a substance or known physiological condition (principal); N39.0 Urinary tract infection, site not specified; F17.210 Nicotine dependence, cigarettes, uncomplicated; F41.1 Generalized anxiety disorder; F90.9 Attention-deficit hyperactivity disorder, unspecified type; F31.9 Bipolar disorder, unspecified; E16.2 Hypoglycemia, unspecified; Z79.899 Other long term (current) drug therapy; Z86.19 Personal history of other infectious and parasitic diseases; Z86.14 Personal history of Methicillin resistant Staphylococcus aureus infection; Z87.898 Personal history of other specified conditions
CPT/HCPCS: 80053; 80306; 82075; 84443; 85025; 99285

== ENCOUNTER 2017-05-03 16:54 | Emergency (ER) | payer MEDICAID, OTHER ==
[2017-05-03 17:01] VITALS: TEMP 97.8
--- NOTE | 2017-05-03 17:12 | ED ---
General Adult HPI - General Chief complaint: Recheck/Abnormal Lab/Rx Stated complaint: Side Pain Time Seen by Provider: 05/03/17 17:03 Source: patient, RN notes reviewed, old records reviewed Mode of arrival: ambulatory Limitations: no limitations - History of Present Illness Initial comments: Patient is a 19-year-old female presents emergency Department chief complaint of a few weeks of left sided rib pain. Patient reports that it occurred after she wore a tight bra. Patient states that she thinks there may be some her abnormalities with her ribs. Patient states that she was recent diagnosis of urinary tract infection, she needs to ensure that she does not have urinary tract infection anymore. She did complete her antibiotics. Denies any recent fever or chills. Denies any abdominal pain, nausea or vomiting. She states that the pain seems to be worse with certain positions. Patient states that she has no hematuria, dysuria or urinary frequency. Denies any changes in bowel habits. - Related Data Home Medications Medication Instructions Recorded Confirmed ARIPiprazole [Abilify] 10 mg PO DAILY 05/03/17 05/03/17 Acetaminophen Tab [Tylenol] 620 mg PO Q6H PRN 05/03/17 05/03/17 Acyclovir 400 mg PO BID 05/03/17 05/03/17 Previous Rx's Medication Instructions Recorded Cyclobenzaprine [Flexeril] 10 mg PO TID #10 tab 05/03/17 Ibuprofen [Motrin] 600 mg PO Q6HR PRN #20 tab 05/03/17 Allergies Allergy/AdvReac Type Severity Reaction Status Date / Time No Known Allergies Allergy Verified 05/03/17 17:05 Review of Systems ROS Statement: Those systems with pertinent positive or pertinent negative responses have been documented in the HPI. ROS Other: All systems not noted in ROS Statement are negative. Past Medical History Past Medical History: No Reported History Additional Past Medical History / Comment(s): hx herpes, History of Any Multi-Drug Resistant Organisms: MRSA Date of last positivie culture/infection: 2013 MDRO Source:: lt leg, lt axillae Past Surgical History: Section Past Anesthesia/Blood Transfusion Reactions: Postoperative Nausea & Vomiting ( PONV) Past Psychological History: ADD/ADHD, Bipolar, Schizophrenia Smoking Status: Current every day smoker Past Alcohol Use History: None Reported Past Drug Use History: None Reported - Past Family History Mother Additional Family Medical History / Comment(s): blood clot main artery neck General Exam - General Exam Comments Initial Comments: Is a well-appearing 19-year-old female. No acute distress. Limitations: no limitations General appearance: alert, in no apparent distress Head exam: Present: atraumatic, normocephalic, normal inspection Eye exam: Present: normal appearance, PERRL, EOMI. Absent: scleral icterus, conjunctival injection, periorbital swelling ENT exam: Present: normal exam, mucous membranes moist Neck exam: Present: normal inspection. Absent: tenderness, meningismus, lymphadenopathy Respiratory exam: Present: normal lung sounds bilaterally, other (Minimal left lower rib tenderness. No CVA tenderness noted.). Absent: respiratory distress , wheezes, rales, rhonchi, stridor Cardiovascular Exam: Present: regular rate, normal rhythm, normal heart sounds. Absent: systolic murmur, diastolic murmur, rubs, gallop, clicks GI/Abdominal exam: Present: soft, normal bowel sounds. Absent: distended, tenderness, guarding, rebound, rigid Extremities exam: Present: normal inspection, full ROM, normal capillary refill. Absent: tenderness, pedal edema, joint swelling, calf tenderness Back exam: Present: normal inspection Neurological exam: Present: alert, oriented X3, CN II-XII intact Psychiatric exam: Present: normal affect, normal mood Skin exam: Present: warm, dry, intact, normal color. Absent: rash Course Vital Signs 05/03/17 16:57 Temperature 97.8 F Pulse Rate 102 H Respiratory 18 Rate Blood Pressure 135/90 O2 Sat by Pulse 100 Oximetry Medical Decision Making - Medical Decision Making -year-old female presents emergency Department with 1 a few weeks of left-sided rib pain. 2 started to occur after she wore brother was too tight. Patient reports is worse with certain movements. She is somewhat tender to palpation over the left lower ribs. No bruising noted. No rashes noted. Patient urinalysis is contaminated, culture will be obtained. She recently got over a urinary tract infection on Macrobid. Patient rib and chest x-ray are normal. No evidence of any other modalities. Patient's she G in her urine is also negative. Patient will be discharged with close follow-up with primary care provider. Discharged with medicine. Patient agrees to treatment plan will comply. Return parameters were discussed. - Lab Data Lab Results 05/03/17 05/03/17 Range/Units 17:23 17:23 Urine Color Yellow Urine Appearance Turbid H (Clear) Urine pH 7.0 (5.0-8.0) Ur Specific [place] 1.015 (1.001-1.035) Urine Protein Negative (Negative) Urine Glucose (UA) Negative (Negative) Urine Ketones Negative (Negative) Urine Blood Negative (Negative) Urine Nitrite Negative (Negative) Urine Bilirubin Negative (Negative) Urine Urobilinogen <2.0 (<2.0) mg/dL Ur Leukocyte Esterase Small H (Negative) Urine WBC 21 H (0-5) /hpf Ur Squamous Epith Cells 18 H (0-4) /hpf Amorphous Sediment Rare H (None) /hpf Urine Bacteria Occasional H (None) /hpf Urine Mucus Rare H (None) /hpf Urine HCG, Qual Not Detected (Not Detectd) Urine Opiates Screen Not Detected (NotDetected) Ur Oxycodone Screen Not Detected (NotDetected) Urine Methadone Screen Not Detected (NotDetected) Ur Propoxyphene Screen Not Detected (NotDetected) Ur Barbiturates Screen Not Detected (NotDetected) U Tricyclic Antidepress Not Detected (NotDetected) Ur Phencyclidine Scrn Not Detected (NotDetected) Ur Amphetamines Screen Not Detected (NotDetected) U Methamphetamines Scrn Not Detected (NotDetected) U Benzodiazepines Scrn Not Detected (NotDetected) Urine Cocaine Screen Not Detected (NotDetected) U Marijuana (THC) Screen Not Detected (NotDetected) - Radiology Data Radiology results: report reviewed Chest x-rays reviewed and negative for any acute process. Disposition Clinical Impression: Rib pain on left side Disposition: HOME SELF-CARE Condition: Good Instructions: Costochondritis (ED) Additional Instructions: Patient advised to follow-up with primary care provider. Take Motrin for pain. Return to emergency department if any alarming signs symptoms occur. Prescriptions: Cyclobenzaprine [Flexeril] 10 mg PO TID #10 tab Ibuprofen [Motrin] 600 mg PO Q6HR PRN #20 tab PRN Reason: Pain Referrals: Héctor Arellano Jr, [Primary Care Provider] - 1-2 days Time of Disposition: 18:21
[2017-05-03 17:49] LABS: Amorphous Sediment,Urine Rare /hpf; Appearance,Urine Turbid (Clear); Bacteria,Urine Occasional /hpf; Bilirubin,Urine Negative (Negative); Glucose,Urine (UA) Negative (Negative); Ketones,Urine Negative (Negative); Leukocyte Esterase,Urine Small (Negative); Mucus,Urine Rare /hpf; Nitrite,Urine Negative (Negative); Particle Count 13919; Protein,Urine Negative (Negative); Specific Gravity,Urine 1.015 (1.001-1.035); Squamous Epithelial Cell,Urine 18 /hpf (0-4); UA Billing (MACRO vs. MICRO) MICRO; Urobilinogen,Urine <2.0 mg/dL (<2.0); WBC,Urine 21 /hpf (0-5)
--- NOTE | 2017-05-03 18:12 | XR ---
EXAMINATION TYPE: XR ribs LT w pa chest xray DATE OF EXAM: 05/03/2017 COMPARISON: NONE HISTORY: Chest pain TECHNIQUE: 5 views FINDINGS: Heart and mediastinum are normal. Lungs are clear. There is no sign of pleural effusion or pneumothorax. The left ribs appear intact. IMPRESSION: Normal chest. Normal left ribs.
--- NOTE | 2017-05-03 18:13 | XR ---
EXAMINATION TYPE: XR KUB DATE OF EXAM: 05/03/2017 COMPARISON: NONE HISTORY: Flank pain TECHNIQUE: 2 views FINDINGS: There is no sign of intestinal obstruction or pneumoperitoneum. Fecal pattern is normal. Th ere is no sign of a mass. There are no pathologic calcifications over the kidneys. Lung bases are salvatore ar. IMPRESSION: Nonacute abdomen.
[2017-05-03] MEDS ORDERED: IBUPROFEN 600 MG STARTER PACK 4 TAB BTL PO STA (18:20)
[2017-05-03 18:30] VITALS: BP 140/100; PULSE 90; RESP 15
== END 2017-05-03 18:31 | disposition home or self-care (01) ==
LOC: EC 16:54
DX: R07.81 Pleurodynia (principal); F31.9 Bipolar disorder, unspecified; F20.9 Schizophrenia, unspecified; F90.9 Attention-deficit hyperactivity disorder, unspecified type; F17.200 Nicotine dependence, unspecified, uncomplicated; Z86.14 Personal history of Methicillin resistant Staphylococcus aureus infection; Z79.899 Other long term (current) drug therapy
CPT/HCPCS: 74000; 80306; 81001; 81025; 99284

== ENCOUNTER 2017-12-29 17:43 | Inpatient (IN) | payer OTHER ==
--- NOTE | 2017-12-29 18:18 | ED ---
General Adult HPI - General Chief complaint: Altered Mental Status Stated complaint: CONFUSION Time Seen by Provider: 12/29/17 17:54 Source: patient, family, RN notes reviewed, old records reviewed Mode of arrival: ambulatory Limitations: altered mental status - History of Present Illness Initial comments: 27-year-old female presents for altered mental status. Patient is unable to contribute to the history. She is ambulatory and in no acute distress however she'll not respond to questioning. She is being petitioned by her mother for mental health issues. She does have past history of drug abuse, alcohol abuse, and multiple admissions for psychiatric reasons. Patient will not comply with any history - Related Data Home Medications Medication Instructions Recorded Confirmed Acyclovir 400 mg PO BID 12/30/17 12/30/17 Escitalopram [Lexapro] 10 mg PO DAILY 12/30/17 12/30/17 FLUoxetine HCL [PROzac] 20 mg PO DAILY 12/30/17 12/30/17 Allergies Allergy/AdvReac Type Severity Reaction Status Date / Time No Known Allergies Allergy Verified 12/30/17 08:56 Review of Systems ROS Statement: Those systems with pertinent positive or pertinent negative responses have been documented in the HPI. ROS Other: All systems not noted in ROS Statement are negative. Past Medical History Past Medical History: No Reported History Additional Past Medical History / Comment(s): hx herpes, History of Any Multi-Drug Resistant Organisms: MRSA Date of last positivie culture/infection: 2013 MDRO Source:: lt leg, lt axillae Past Surgical History: Section Additional Past Surgical History / Comment(s): Wrist sx Past Anesthesia/Blood Transfusion Reactions: Postoperative Nausea & Vomiting ( PONV) Past Psychological History: ADD/ADHD, Bipolar, Schizophrenia Smoking Status: Current every day smoker Past Alcohol Use History: None Reported Past Drug Use History: Methamphetamine - Past Family History Mother Additional Family Medical History / Comment(s): blood clot main artery neck General Exam Limitations: altered mental status General appearance: alert, in no apparent distress Head exam: Present: atraumatic, normocephalic Eye exam: Present: normal appearance, PERRL, EOMI Neck exam: Present: normal inspection. Absent: tenderness, meningismus Respiratory exam: Present: normal lung sounds bilaterally. Absent: respiratory distress, wheezes Cardiovascular Exam: Present: regular rate, normal rhythm GI/Abdominal exam: Present: soft. Absent: distended, tenderness, guarding Extremities exam: Present: normal inspection, normal capillary refill. Absent: pedal edema Neurological exam: Present: alert, CN II-XII intact, other (Patient is not oriented. She will say certain words however she is not making sense.). Absent : oriented X3, motor sensory deficit Psychiatric exam: Present: flat affect Skin exam: Present: warm, dry, intact. Absent: cyanosis, diaphoretic Course Vital Signs 12/29/17 12/29/17 12/30/17 17:49 19:38 01:06 Temperature 98.3 F Pulse Rate 80 104 H Respiratory 18 18 17 Rate Blood Pressure 122/78 117/62 O2 Sat by Pulse 100 98 Oximetry 12/30/17 12/30/17 12/30/17 01:38 05:28 09:00 Temperature 97.5 F L 97.8 F Pulse Rate 82 84 Respiratory 18 18 18 Rate Blood Pressure 95/52 108/66 O2 Sat by Pulse 100 99 Oximetry 12/30/17 13:46 Temperature 98.0 F Pulse Rate 100 Respiratory 18 Rate Blood Pressure 101/54 O2 Sat by Pulse 100 Oximetry - Reevaluation(s) Reevaluation #1: 12/29/17 20:59 CT reviewed, no intracranial hemorrhage. Laboratory studies reviewed and are consistent with clinical presentation. Urinalysis is positive for methamphetamine. Likely presentation is secondary to methamphetamine use and acute psychosis. She is medically cleared and will be evaluated by EPS. Reevaluation #2: 12/29/17 21:01 Patient's care is signed out to Dr. Varela at shift change. EKG Findings - EKG Comments: EKG Findings:: EKG: Sinus tachycardia, ventricular rate of 106, NC interval 138 , QRS duration 90, QTC 478, no arrhythmia or ischemia Procedures - Restraint - Face to Face Restraint Occurrence 1 Patient's Immediate Situation: Endangers self safety, Endangers others' safety, Endangers staff safety Patient's Reaction to the Intervention: Uncooperative, Angry, Belligerent, Anxious, Aggressive Patient's Medical & Behavioral Condition: Awake, Alert, Anxious Face to Face Eval of Restraint Date: 12/29/17 Face to Face Eval of Restraint Time: 18:18 Medical Decision Making - Medical Decision Making Patient evaluated by EPS, she will be admitted to this institution. Diagnosis acute psychosis, polysubstance abuse - Lab Data Result diagrams: 12/29/17 19:00 12/29/17 19:00 Lab Results 12/29/17 12/29/17 12/29/17 Range/Units 18:07 19:00 19:00 WBC (3.8-10.6) k/uL RBC (3.80-5.40) m/uL Hgb (11.4-16.0) gm/dL Hct (34.0-46.0) % MCV (80.0-100.0) fL MCH (25.0-35.0) pg MCHC (31.0-37.0) g/dL RDW (11.5-15.5) % Plt Count (150-450) k/uL Neutrophils % % Lymphocytes % % Monocytes % % Eosinophils % % Basophils % % Neutrophils # (1.3-7.7) k/uL Lymphocytes # (1.0-4.8) k/uL Monocytes # (0-1.0) k/uL Eosinophils # (0-0.7) k/uL Basophils # (0-0.2) k/uL PT (9.0-12.0) sec INR (<1.2) APTT (22.0-30.0) sec Sodium 143 (137-145) mmol/L Potassium 4.3 (3.5-5.1) mmol/L Chloride 105 (98-107) mmol/L Carbon Dioxide 16 L (22-30) mmol/L Anion Gap 22 mmol/L BUN 14 (7-17) mg/dL Creatinine 0.70 (0.52-1.04) mg/dL Est GFR (CKD-EPI)AfAm >90 (>60 ml/min/1.73 sqM) Est GFR (CKD-EPI)NonAf >90 (>60 ml/min/1.73 sqM) Glucose 110 H (74-99) mg/dL POC Glucose (mg/dL) 92 (75-99) mg/dL POC Glu Senior Cyber Intelligence Analyst ID [place], [place] Calcium 10.3 H (8.4-10.2) mg/dL Total Bilirubin 1.0 (0.2-1.3) mg/dL AST 234 H (14-36) U/L ALT 552 H (9-52) U/L Alkaline Phosphatase 108 (38-126) U/L Total Creatine Kinase 142 H (30-135) U/L CK-MB (CK-2) 2.2 (0.0-2.4) ng/mL CK-MB (CK-2) Rel Index 1.5 Troponin I <0.012 (0.000-0.034) ng/mL Total Protein 8.4 H (6.3-8.2) g/dL Albumin 5.2 H (3.5-5.0) g/dL Urine Color Urine Appearance (Clear) Urine pH (5.0-8.0) Ur Specific [place] (1.001-1.035) Urine Protein (Negative) Urine Glucose (UA) (Negative) Urine Ketones (Negative) Urine Blood (Negative) Urine Nitrite (Negative) Urine Bilirubin (Negative) Urine Urobilinogen (<2.0) mg/dL Ur Leukocyte Esterase (Negative) Urine RBC (0-5) /hpf Urine WBC (0-5) /hpf Ur Squamous Epith Cells (0-4) /hpf Urine Bacteria (None) /hpf Urine Mucus (None) /hpf Urine HCG, Qual (Not Detectd) Salicylates <1.0 mg/dL Urine Opiates Screen (NotDetected) Ur Oxycodone Screen (NotDetected) Urine Methadone Screen (NotDetected) Ur Propoxyphene Screen (NotDetected) Acetaminophen <10.0 ug/mL Ur Barbiturates Screen (NotDetected) U Tricyclic Antidepress (NotDetected) Ur Phencyclidine Scrn (NotDetected) Ur Amphetamines Screen (NotDetected) U Methamphetamines Scrn (NotDetected) U Benzodiazepines Scrn (NotDetected) Urine Cocaine Screen (NotDetected) U Marijuana (THC) Screen (NotDetected) 12/29/17 12/29/17 12/29/17 Range/Units 19:00 19:00 19:50 WBC 11.5 H (3.8-10.6) k/uL RBC 4.93 (3.80-5.40) m/uL Hgb 15.3 (11.4-16.0) gm/dL Hct 45.5 (34.0-46.0) % MCV 92.4 (80.0-100.0) fL MCH 31.0 (25.0-35.0) pg MCHC 33.5 (31.0-37.0) g/dL RDW 12.7 (11.5-15.5) % Plt Count 296 (150-450) k/uL Neutrophils % 61 % Lymphocytes % 29 % Monocytes % 5 % Eosinophils % 1 % Basophils % 0 % Neutrophils # 7.0 (1.3-7.7) k/uL Lymphocytes # 3.4 (1.0-4.8) k/uL Monocytes # 0.6 (0-1.0) k/uL Eosinophils # 0.1 (0-0.7) k/uL Basophils # 0.0 (0-0.2) k/uL PT 11.4 (9.0-12.0) sec INR 1.2 H (<1.2) APTT 23.6 (22.0-30.0) sec Sodium (137-145) mmol/L Potassium (3.5-5.1) mmol/L Chloride (98-107) mmol/L Carbon Dioxide (22-30) mmol/L Anion Gap mmol/L BUN (7-17) mg/dL Creatinine (0.52-1.04) mg/dL Est GFR (CKD-EPI)AfAm (>60 ml/min/1.73 sqM) Est GFR (CKD-EPI)NonAf (>60 ml/min/1.73 sqM) Glucose (74-99) mg/dL POC Glucose (mg/dL) (75-99) mg/dL POC Glu Senior Cyber Intelligence Analyst ID Calcium (8.4-10.2) mg/dL Total Bilirubin (0.2-1.3) mg/dL AST (14-36) U/L ALT (9-52) U/L Alkaline Phosphatase (38-126) U/L Total Creatine Kinase (30-135) U/L CK-MB (CK-2) (0.0-2.4) ng/mL CK-MB (CK-2) Rel Index Troponin I (0.000-0.034) ng/mL Total Protein (6.3-8.2) g/dL Albumin (3.5-5.0) g/dL Urine Color Yellow Urine Appearance Cloudy H (Clear) Urine pH 5.5 (5.0-8.0) Ur Specific [place] 1.018 (1.001-1.035) Urine Protein 1+ H (Negative) Urine Glucose (UA) Negative (Negative) Urine Ketones 1+ H (Negative) Urine Blood Trace H (Negative) Urine Nitrite Negative (Negative) Urine Bilirubin Negative (Negative) Urine Urobilinogen 4.0 (<2.0) mg/dL Ur Leukocyte Esterase Moderate H (Negative) Urine RBC 5 (0-5) /hpf Urine WBC 18 H (0-5) /hpf Ur Squamous Epith Cells 14 H (0-4) /hpf Urine Bacteria Many H (None) /hpf Urine Mucus Moderate H (None) /hpf Urine HCG, Qual (Not Detectd) Salicylates mg/dL Urine Opiates Screen Not Detected (NotDetected) Ur Oxycodone Screen Not Detected (NotDetected) Urine Methadone Screen Not Detected (NotDetected) Ur Propoxyphene Screen Not Detected (NotDetected) Acetaminophen ug/mL Ur Barbiturates Screen Not Detected (NotDetected) U Tricyclic Antidepress Not Detected (NotDetected) Ur Phencyclidine Scrn Not Detected (NotDetected) Ur Amphetamines Screen Detected H (NotDetected) U Methamphetamines Scrn Detected H (NotDetected) U Benzodiazepines Scrn Not Detected (NotDetected) Urine Cocaine Screen Not Detected (NotDetected) U Marijuana (THC) Screen Detected H (NotDetected) 12/29/17 Range/Units 19:50 WBC (3.8-10.6) k/uL RBC (3.80-5.40) m/uL Hgb (11.4-16.0) gm/dL Hct (34.0-46.0) % MCV (80.0-100.0) fL MCH (25.0-35.0) pg MCHC (31.0-37.0) g/dL RDW (11.5-15.5) % Plt Count (150-450) k/uL Neutrophils % % Lymphocytes % % Monocytes % % Eosinophils % % Basophils % % Neutrophils # (1.3-7.7) k/uL Lymphocytes # (1.0-4.8) k/uL Monocytes # (0-1.0) k/uL Eosinophils # (0-0.7) k/uL Basophils # (0-0.2) k/uL PT (9.0-12.0) sec INR (<1.2) APTT (22.0-30.0) sec Sodium (137-145) mmol/L Potassium (3.5-5.1) mmol/L Chloride (98-107) mmol/L Carbon Dioxide (22-30) mmol/L Anion Gap mmol/L BUN (7-17) mg/dL Creatinine (0.52-1.04) mg/dL Est GFR (CKD-EPI)AfAm (>60 ml/min/1.73 sqM) Est GFR (CKD-EPI)NonAf (>60 ml/min/1.73 sqM) Glucose (74-99) mg/dL POC Glucose (mg/dL) (75-99) mg/dL POC Glu Senior Cyber Intelligence Analyst ID Calcium (8.4-10.2) mg/dL Total Bilirubin (0.2-1.3) mg/dL AST (14-36) U/L ALT (9-52) U/L Alkaline Phosphatase (38-126) U/L Total Creatine Kinase (30-135) U/L CK-MB (CK-2) (0.0-2.4) ng/mL CK-MB (CK-2) Rel Index Troponin I (0.000-0.034) ng/mL Total Protein (6.3-8.2) g/dL Albumin (3.5-5.0) g/dL Urine Color Urine Appearance (Clear) Urine pH (5.0-8.0) Ur Specific [place] (1.001-1.035) Urine Protein (Negative) Urine Glucose (UA) (Negative) Urine Ketones (Negative) Urine Blood (Negative) Urine Nitrite (Negative) Urine Bilirubin (Negative) Urine Urobilinogen (<2.0) mg/dL Ur Leukocyte Esterase (Negative) Urine RBC (0-5) /hpf Urine WBC (0-5) /hpf Ur Squamous Epith Cells (0-4) /hpf Urine Bacteria (None) /hpf Urine Mucus (None) /hpf Urine HCG, Qual Not Detected (Not Detectd) Salicylates mg/dL Urine Opiates Screen (NotDetected) Ur Oxycodone Screen (NotDetected) Urine Methadone Screen (NotDetected) Ur Propoxyphene Screen (NotDetected) Acetaminophen ug/mL Ur Barbiturates Screen (NotDetected) U Tricyclic Antidepress (NotDetected) Ur Phencyclidine Scrn (NotDetected) Ur Amphetamines Screen (NotDetected) U Methamphetamines Scrn (NotDetected) U Benzodiazepines Scrn (NotDetected) Urine Cocaine Screen (NotDetected) U Marijuana (THC) Screen (NotDetected) Disposition Clinical Impression: Methamphetamine abuse, Psychosis Disposition: ADMITTED IP TO THIS [facility] Condition: Stable Is patient prescribed a controlled substance at d/c from ED?: No Decision to Admit Reason: Admit from EC Decision Date: 12/30/17 Decision Time: 17:52
[2017-12-29 18:21] LABS: Glucose,Whole Blood 92 mg/dL (75-99)
[2017-12-29] MEDS: LORazepam 2 MG/ML INJ IV STA ×2 (18:23→18:46)
[2017-12-29 19:19] LABS: Basophils % (A) 0 %; Eosinophils # (A) 0.1 k/uL (0-0.7); Eosinophils % (A) 1 %; HCT 45.5 % (34.0-46.0); HGB 15.3 gm/dL (11.4-16.0); Lymphocytes # (A) 3.4 k/uL (1.0-4.8); Lymphocytes % (A) 29 %; MCHC 33.5 g/dL (31.0-37.0); MCV 92.4 fL (80.0-100.0); Mean Platelet Volume 7.3; Monocytes # (A) 0.6 k/uL (0-1.0); Monocytes % (A) 5 %; Neutrophils % (A) 61 %; Platelet Count 296 k/uL (150-450); RBC 4.93 m/uL (3.80-5.40); RDW 12.7 % (11.5-15.5); WBC 11.5 k/uL (3.8-10.6)
[2017-12-29 19:30] LABS: ALT 552 U/L (9-52); AST 234 U/L (14-36); Acetaminophen <10.0 ug/mL; Albumin 5.2 g/dL (3.5-5.0); Alkaline Phosphatase 108 U/L (38-126); Anion Gap 22 mmol/L; Blood Urea Nitrogen 14 mg/dL (7-17); Calcium 10.3 mg/dL (8.4-10.2); Carbon Dioxide 16 mmol/L (22-30); Chloride 105 mmol/L (98-107); Glucose 110 mg/dL (74-99); Potassium 4.3 mmol/L (3.5-5.1); Salicylate <1.0 mg/dL; Sodium 143 mmol/L (137-145); Total Protein 8.4 g/dL (6.3-8.2)
[2017-12-29 19:32] LABS: INR 1.2 (<1.2); Partial Thromboplastin Time 23.6 sec (22.0-30.0); Prothrombin Time 11.4 sec (9.0-12.0)
[2017-12-29 19:53] LABS: Creatine Kinase 142 U/L (30-135)
[2017-12-29 20:06] LABS: Creatine Kinase MB 2.2 ng/mL (0.0-2.4); Troponin I <0.012 ng/mL (0.000-0.034)
--- NOTE | 2017-12-29 20:08 | XR ---
EXAMINATION TYPE: XR chest 1V portable DATE OF EXAM: 12/29/2017 Comparison: 05/03/2017 Clinical History: 27 year-old female altered mental status Findings: The cardiomediastinal silhouette, aorta, and pulmonary vasculature are within normal limits. Lungs and pleural spaces are clear. Impression: No acute cardiopulmonary process.
[2017-12-29 20:09] LABS: Appearance,Urine Cloudy (Clear); Bacteria,Urine Many /hpf; Bilirubin,Urine Negative (Negative); Blood,Urine Trace (Negative); Color,Urine Yellow; Glucose,Urine (UA) Negative (Negative); Ketones,Urine 1+ (Negative); Leukocyte Esterase,Urine Moderate (Negative); Mucus,Urine Moderate /hpf; Nitrite,Urine Negative (Negative); PH, Urine 5.5 (5.0-8.0); Protein,Urine 1+ (Negative); RBC,Urine 5 /hpf (0-5); Specific Gravity,Urine 1.018 (1.001-1.035); Squamous Epithelial Cell,Urine 14 /hpf (0-4); WBC,Urine 18 /hpf (0-5)
[2017-12-29 20:19] LABS: Amphetamine Screen,Urine Detected (NotDetected); Barbiturate Screen,Urine Not Detected (NotDetected); Benzodiazepines Screen,Urine Not Detected (NotDetected); Cocaine Screen,Urine Not Detected (NotDetected); Methadone Screen, Urine Not Detected (NotDetected); Opiate Screen,Urine Not Detected (NotDetected); Oxycodone Screen, Urine Not Detected (NotDetected); Phencyclidine Screen,Urine Not Detected (NotDetected); Tricyclic Antidepressant,Urine Not Detected (NotDetected); Urn Cannabinoid Scrn Detected (NotDetected)
--- NOTE | 2017-12-29 20:46 | CT ---
EXAMINATION TYPE: CT brain wo con DATE OF EXAM: 12/29/2017 COMPARISON: None HISTORY: 27-year-old female confusion, altered mental status. TECHNIQUE: Examination was done in axial plane without intravenous contrast. Coronal and sagittal r econstructions performed. CT DLP: 992.2 mGycm Automated exposure control for dose reduction was used. FINDINGS: There is no evidence of acute intracranial hemorrhage, acute ischemic changes, mass, mass-effect, or extra-axial fluid collection. There is no effacement of cerebral sulci or basal subarachnoid cister ns. There is no hydrocephalus. There is no midline shift. Acosta-white matter distinction is preserv ed. Paranasal sinuses and mastoid air cells are well pneumatized. Orbits and globes are intact. IMPRESSION: No acute intracranial abnormality seen.
[2017-12-30] MEDS ORDERED: ZIPRASIDONE 20 MG VIAL IM PRN (17:43)
[2017-12-30] MEDS ORDERED: MAG HYDROX/AL HYDROX/SIMETH 30 ML CUP PO PRN (17:43)
[2017-12-30] MEDS ORDERED: ACETAMINOPHEN TAB 325 MG TAB PO PRN (17:43)
[2017-12-30] MEDS ORDERED: MAGNESIUM HYDROXIDE 2,400 MG/10 ML CUP PO PRN (17:43)
[2017-12-31] MEDS: NICOTINE 14MG/24HR PATCH TRANSDERM SCH ×2 (09:47→10:45)
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
[2017-12-31] MEDS: ARIPiprazole 10 MG TAB PO SCH (10:45)
[2017-12-31 10:54] LABS: Basophils % (A) 0 %; Eosinophils # (A) 0.1 k/uL (0-0.7); Eosinophils % (A) 2 %; HCT 42.5 % (34.0-46.0); Lymphocytes # (A) 1.8 k/uL (1.0-4.8); Lymphocytes % (A) 30 %; MCH 30.6 pg (25.0-35.0); MCV 92.9 fL (80.0-100.0); Mean Platelet Volume 6.7; Monocytes # (A) 0.3 k/uL (0-1.0); Monocytes % (A) 5 %; Neutrophils # (A) 3.6 k/uL (1.3-7.7); Neutrophils % (A) 60 %; Platelet Count 276 k/uL (150-450); RBC 4.58 m/uL (3.80-5.40); RDW 12.9 % (11.5-15.5); WBC 5.9 k/uL (3.8-10.6)
[2017-12-31 11:09] LABS: ALT 380 U/L (9-52); AST 151 U/L (14-36); Alkaline Phosphatase 71 U/L (38-126); Anion Gap 10 mmol/L; Blood Urea Nitrogen 18 mg/dL (7-17); Calcium 9.3 mg/dL (8.4-10.2); Carbon Dioxide 27 mmol/L (22-30); Chloride 106 mmol/L (98-107); Glucose 84 mg/dL (74-99); Potassium 4.3 mmol/L (3.5-5.1); Sodium 143 mmol/L (137-145); Total Bilirubin 0.5 mg/dL (0.2-1.3); Total Protein 6.8 g/dL (6.3-8.2)
[2017-12-31 12:34] LABS: Amylase 40 U/L (30-110); Lipase 108 U/L (23-300)
--- NOTE | 2017-12-31 14:32 | P.MDCNMH ---
History of Present Illness H&P Date: 12/31/17 Chief Complaint: Medical management 27-year-old female who is admitted to the mental health unit. Dr. Arellano is the patients PCP. She was examined in the MHU with Dr. Arellano. The patient states she was recently at [facility] but left after 4 days. She states she wanted to be tested for HIV and they would not test her so she got mad and signed herself out. She reports she is homeless and living on the streets. She reports using Meth. She denies ETOH use. She does report recent sexual intercourse, unprotected. She denies urinary frequency, urgency, or burning. She does report a foul odor to her urine though. She states she feels "like shit" and feels as though she is going through withdrawal. Denies chest pain or pressure. Denies shortness of breath. Review of Systems Those systems with pertinent positive or pertinent negative responses have been documented in the HPI Past Medical History Past Medical History: No Reported History Additional Past Medical History / Comment(s): hx herpes, History of Any Multi-Drug Resistant Organisms: MRSA Date of last positivie culture/infection: 2013 MDRO Source:: lt leg, lt axillae Past Surgical History: Section Additional Past Surgical History / Comment(s): Wrist sx Past Anesthesia/Blood Transfusion Reactions: Postoperative Nausea & Vomiting ( PONV) Past Psychological History: ADD/ADHD, Bipolar, Schizophrenia Smoking Status: Current every day smoker Past Alcohol Use History: None Reported Past Drug Use History: Methamphetamine - Past Family History Mother Additional Family Medical History / Comment(s): blood clot main artery neck Medications and Allergies Home Medications Medication Instructions Recorded Confirmed Type Acyclovir 400 mg PO BID 12/30/17 12/30/17 History Escitalopram [Lexapro] 10 mg PO DAILY 12/30/17 12/30/17 History FLUoxetine HCL [PROzac] 20 mg PO DAILY 12/30/17 12/30/17 History Allergies Allergy/AdvReac Type Severity Reaction Status Date / Time No Known Allergies Allergy Verified 12/30/17 08:56 Physical Exam Vitals: Vital Signs Temp Pulse Pulse Resp BP BP Pulse Ox 12/31/17 07:00 98.0 F 78 18 112/56 98 12/30/17 18:30 97.2 F L 90 16 115/69 97 12/30/17 17:50 98.5 F 81 20 115/61 98 Intake and Output 12/30/17 12/31/17 12/31/17 22:59 06:59 14:59 Other: Weight 71.4 kg GENERAL: This is a 27-year-old female in no apparent distress at the time of examination. Pleasant and cooperative. Tearful during examination. HEENT: Head is atraumatic, normocephalic. Pupils are equal, round, and reactive to light. Sclerae anicteric. Conjunctivae are clear. Mucus membranes of the mouth are moist. Neck is supple. RESPIRATORY: Clear to ausculation. No wheezes, rales, or rhonchi. No use of accessory muscles. Patient maintaining oxygen saturation greater than 92%. No chest wall tenderness is noted on palpation or with deep breathing. CARDIOVASCULAR: Regular rate and rhythm. S1 and S2 noted. No systolic or diastolic murmur auscultated. No JVD noted. No S3 or S4 noted. GASTROINTESTINAL: No distention noted. Abdomen soft and round. Normal active bowel sounds auscultated x 4 quadrants. No pain or tenderness noted upon palpation. INTEGUMENTARY: No cyanosis. No jaundice. No rashes noted. No cellulitis noted. EXTREMITIES: 2+ peripheral pulses. No evidence of peripheral edema. No calf tenderness noted. NEUROLOGIC: Cranial nerves II-XII intact. PSYCHIATRIC: Awake, alert, and oriented X 3. Appropriate affect. Intact judgement and insight. Cranial Nerve Examination - Cranial Nerves Cranial Nerve I- Olfactory: Intact Cranial Nerve II- Optic: Intact Cranial Nerve III- Oculomotor: Intact Cranial Nerve IV- Trochlear: Intact Cranial Nerve V- Trigeminal: Intact Cranial Nerve - Abducens: Intact Cranial Nerve VII- Facial: Intact Cranial Nerve VIII- Auditory: Intact Cranial Nerve IX- Glossopharyngeal: Intact Cranial Nerve X- Vagus: Intact Cranial Nerve XI- Accessory: Intact Cranial Nerve XII- Hypoglossal: Intact Results CBC & Chem 7: 12/31/17 10:22 12/31/17 10:22 Labs: Abnormal Lab Results - Last 24 Hours (Table) 12/31/17 Range/Units 10:22 BUN 18 H (7-17) mg/dL AST 151 H (14-36) U/L ALT 380 H (9-52) U/L Assessment and Plan Plan: ASSESSMENT: Transaminitis, suspect secondary to drug use Pyuria, patient denies s/s of UTI such as frequency, urgency, or burning, but reports malodorous urine, suspect STI Cannabis use disorder and methamphetamine use, psychiatry following Depression Nicotine dependence PLAN: Continue mental health care per Dr. Campbell. Begin clonidine 0.1mg TID for withdrawal symptoms per Dr. Arellano. Monitor LFTs. Repeat in AM. Hepatitis panel in AM. Repeat UA. Chlamydia and Gonorrhoea testing per urine. Flagyl 500mg BID x [address] Arellano Nurse practitioner note has been reviewed by physician. Signing provider agrees with the documented findings, assessment, and plan of care.
[2017-12-31] MEDS: cloNIDine HCL 0.1 MG TAB PO SCH ×2 (15:55→21:21)
[2017-12-31] MEDS: metroNIDAZOLE 500 MG TAB PO SCH (21:21)
[2018-01-01] MEDS: ARIPiprazole 10 MG TAB PO SCH (08:48)
[2018-01-01] MEDS: metroNIDAZOLE 500 MG TAB PO SCH ×2 (08:48→21:11)
[2018-01-01] MEDS: NICOTINE 14MG/24HR PATCH TRANSDERM SCH (08:48)
[2018-01-01] MEDS: cloNIDine HCL 0.1 MG TAB PO SCH (08:49)
[2018-01-01 09:15] LABS: ALT 338 U/L (9-52); AST 131 U/L (14-36); Albumin 3.9 g/dL (3.5-5.0); Alkaline Phosphatase 71 U/L (38-126); Anion Gap 12 mmol/L; Blood Urea Nitrogen 15 mg/dL (7-17); Calcium 9.2 mg/dL (8.4-10.2); Carbon Dioxide 24 mmol/L (22-30); Chloride 106 mmol/L (98-107); Glucose 160 mg/dL (74-99); Potassium 4.1 mmol/L (3.5-5.1); Sodium 142 mmol/L (137-145); Total Bilirubin 0.5 mg/dL (0.2-1.3); Total Protein 6.7 g/dL (6.3-8.2)
--- NOTE | 2018-01-01 09:43 | P.PN ---
Progress Note - Text Interval history: The patient is found in her room she follows me to an interview room. She reports feeling tired confused and groggy. She was seen by her primary care physician. Clonidine was started on a scheduled basis and a hepatitis panel was ordered. The patient states that she did not attend any groups yesterday and she feels physically drained. She plans to call the access number for inpatient chemical dependency treatment screening. She states that she ate breakfast this morning she reports that she has showered. She describes a sad and anxious mood. Mental status exam: The patient is alert she is dressed in the same clothing just yesterday. She has a disheveled appearance hygiene is adequate. She has almost no eye contact. She has very little spontaneous speech. She is briefly tearful when discussing her children. She describes a depressed and anxious mood with hopelessness thinking. She feels safe in the hospital she is endorsing no homicidal ideation. She is describing no auditory or visual hallucinations she is demonstrating no overt evidence of psychosis. No endorsed delusional thought content. Insight and judgment limited. She demonstrates no abnormal involuntary movements she demonstrates no verbal or physical aggressiveness. She does yawn throughout the session. Plan: The patient will continue on the Abilify as written. We will discontinue the clonidine. We will await results from lab testing. She has been placed on Flagyl. She is encouraged to participate in the milieu as much as possible. We will monitor her for safety. She is encouraged to call for inpatient chemical dependency treatment placement.
[2018-01-01 09:57] LABS: Hepatitis B Core IgM Non-Reactive (Non-Reactive)
[2018-01-01 14:46] LABS: Appearance,Urine Cloudy (Clear); Bacteria,Urine Few /hpf; Bilirubin,Urine Negative (Negative); Blood,Urine Negative (Negative); Color,Urine Yellow; Glucose,Urine (UA) Negative (Negative); Ketones,Urine Trace (Negative); Leukocyte Esterase,Urine Moderate (Negative); Mucus,Urine Many /hpf; Nitrite,Urine Negative (Negative); Protein,Urine Trace (Negative); RBC,Urine 3 /hpf (0-5); Squamous Epithelial Cell,Urine 16 /hpf (0-4); WBC,Urine 25 /hpf (0-5)
[2018-01-02] MEDS: metroNIDAZOLE 500 MG TAB PO SCH (08:12)
[2018-01-02] MEDS: NICOTINE 14MG/24HR PATCH TRANSDERM SCH (08:13)
[2018-01-02] MEDS: ARIPiprazole 10 MG TAB PO SCH (08:13)
--- NOTE | 2018-01-02 09:59 | P.PN ---
Progress Note - Text Interval history: The patient is found in her room she follows me to an interview room. She indicates her mood is mildly better but still feels down and describes some feelings of anxiety. She is most bothered by her continued feeling of fatigue and being tired. She indicates she attended 2 groups yesterday. Vital signs are stable. Again we reviewed that she is going through several changes in that she is not using methamphetamine. Her hepatitis panel came back reactive hepatitis C and we discussed that. She is being treated for a sexually transmitted disease with Flagyl. She reports her appetite stable she indicates she sleeping at night. She has not called for inpatient chemical dependency treatment yet although she states she does want to go. She describes a visit from her mother yesterday and states her mother supports her going to rehab as well. Mental status exam: The patient is alert she describes herself as feeling tired with ongoing mood and anxiety symptoms. Eye contact is intermittent but improved from yesterday. Affect is blunted. She demonstrates no verbal or physical aggressiveness. She speaks in a quiet tone and does not raise her voice. She is endorsing no acute suicidal or homicidal ideation she is endorsing auditory or visual or specific delusions. There is no evidence of tangential thinking loose associations or flight of ideas. He does not appear overtly hypomanic or manic. No evidence of any abnormal involuntary movements. She is cooperative but does not readily engage in conversation. Plan: The patient will be continued on the Abilify. She is encouraged to call for inpatient chemical dependency placement today. We discussed having her follow up with her primary care physician regarding the reactive hepatitis C panel. Vital signs reviewed they remain within normal limits. She is encouraged to further engage in the milieu and we will continue to monitor for safety.
[2018-01-02 13:04] LABS: ALT 357 U/L (9-52); AST 161 U/L (14-36); Albumin 4.3 g/dL (3.5-5.0); Alkaline Phosphatase 82 U/L (38-126); Anion Gap 12 mmol/L; Blood Urea Nitrogen 13 mg/dL (7-17); Calcium 9.7 mg/dL (8.4-10.2); Carbon Dioxide 27 mmol/L (22-30); Chloride 104 mmol/L (98-107); Glucose 85 mg/dL (74-99); Potassium 4.4 mmol/L (3.5-5.1); Sodium 143 mmol/L (137-145); Total Bilirubin 0.5 mg/dL (0.2-1.3); Total Protein 7.4 g/dL (6.3-8.2)
--- NOTE | 2018-01-03 10:12 | P.PN ---
Progress Note - Text Interval history: The patient is found in her room she follows me to an interview room. She describes her mood is still depressed she feels anxious. She is concerned as to how this anxiety will affect her when she is in inpatient chemical dependency treatment. She states that was part of the reason she left after only 4 days last time. She did call and she's been placed at [facility] on Saturday. She has been compliant with the Abilify. She continues to feel tired but feels it's mildly less. Lab results reviewed. Her liver enzymes remain elevated. Her primary care physician had ordered an ultrasound for liver which has been completed results are not yet available. The follow-up UA continues to reflect possible infection. She states that she attended more group activity. Mental status exam: The patient is alert she is dressed in her own clothing. Eye contact is poor. She maintains a very bland affect. She describes a depressed mood with ongoing anxiety. She does still have some hopeless thoughts. She feels safe here in the hospital. She is reporting no homicidal ideation intent or plan. She is endorsing no auditory or visual hallucinations or specific delusions. Insight and judgment limited. She is oriented to person place and date. She demonstrates no verbal or physical aggressiveness she demonstrates no abnormal involuntary movements. Plan: The patient will continue on the Abilify as written. To address anxiety symptoms we will initiate BuSpar 10 mg twice daily. We're hoping to prescribe a medication that can reduce anxiety and allow her to complete the inpatient chemical dependency treatment program. We will plan to discharge her Saturday morning so she will go directly to rehab. We will look for further recommendations from her primary care physician. We will monitor for safety and she is encouraged to participate more in the milieu.
[2018-01-03] MEDS: busPIRone HCl 10 MG TAB PO SCH ×2 (10:13→21:45)
[2018-01-03] MEDS: ARIPiprazole 10 MG TAB PO SCH (10:13)
[2018-01-03] MEDS: NICOTINE 14MG/24HR PATCH TRANSDERM SCH (10:13)
--- NOTE | 2018-01-03 11:05 | US ---
EXAMINATION TYPE: US liver DATE OF EXAM: 01/03/2018 COMPARISON: NONE CLINICAL HISTORY: positive hepatitis panel. EXAM MEASUREMENTS: Liver Length: 12.0 cm Gallbladder Wall: 0.3 cm CBD: 0.4 cm Right Kidney: 10.0 x 4.0 x 3.2 cm Technical limitations due to large amount of overlying bowel Pancreas: limited evaluation due to overlying bowel content Liver: Slight increased echogenicity of the portal triads that can be seen in hepatocellular disease such as hepatitis. Gallbladder: Cholelithiasis, ANTOINETTE sign Evidence for sonographic Acosat's sign: no CBD: wnl Right Kidney: No hydronephrosis or masses seen IMPRESSION: 1. Slight increased echogenicity of the portal triads that can be seen in hepatocellular disease such as hepatitis. No identifiable focal mass on today's examination. 2. Cholelithiasis without sonographic evidence of acute cholecystitis.
[2018-01-03 12:43] LABS: Hepatitis A Antibody IgM Non-Reactive (Non-Reactive)
[2018-01-03] MEDS: SULFAMETHOX-TMP 800-160MG 1 EACH TAB PO SCH ×2 (14:10→21:45)
[2018-01-03 17:28] LABS: HIV AB P24 Non-Reactive (Non-Reactive); HIV P24 AG Non-Reactive (Non-Reactive)
--- NOTE | 2018-01-03 23:58 | P.CONS ---
History of Present Illness - Reason for Consult Consult date: 01/03/18 - Chief Complaint drug use - History of Present Illness 27-year-old female presents the mental health unit with significant psychosocial difficulties including polysubstance abuse and homeless status. She had been in the local [place] rehab center but apparently signed out. She had relapse of drug use and then had worsening psychiatric difficulties and has now been admitted to the psychiatric unit. There was evidence of elevated liver function tests in testing was performed for hepatitis. Hepatitis A and B were negative but hepatitis C antibody was positive. Ultrasound was obtained with evidence of concerns to hepatitis C the infectious diseases consultation was requested. The patient relates she does have a history of prior injection drug use as a likely etiology of her hepatitis C. She also does have unprotected sexual encounters. Last HIV test was negative I believe a year ago. She would like further testing. She feels very poorly at this point in time with the drug withdrawal and her underlying psychiatric issues. However she relates she's feeling better now and there is potential for her to go to rehab on Saturday. Review of Systems HEENT: Has some headache but no visual change. Denies sinus or mouth discomforts. Denies neck stiffness or pain. Denies significant oral cavity pain. Denies difficulty on swallowing. Lungs: Denies significant shortness of breath, cough, sputum production, or hemoptysis. Cardiovascular: Denies significant shortness of breath, chest pain, chest wall pain, orthopnea, dyspnea on exertion, syncope Gastrointestinal: Was having some nausea without emesis minimal diarrhea no hematemesis motor hematochezia. Denies abdominal pain Musculoskeletal: denies significant myalgias or arthralgias. No new joint swelling. Denies new back pain. Skin: Has some difficulties with acne-like lesions on her face that have worsened with the utilization of her methamphetamine Neuro: Occasional headache but no visual change. Denies any new onset weakness or difficulty with ambulation. Denies falls or seizures. Psychiatric: Significant anxiety and depression Endocrine: Complains of fatigue and weight loss Past Medical History Past Medical History: No Reported History Additional Past Medical History / Comment(s): hx herpes, History of Any Multi-Drug Resistant Organisms: MRSA Year Discovered:: 2013 MDRO Source:: lt leg, lt axillae Past Surgical History: Section Additional Past Surgical History / Comment(s): Wrist sx Past Anesthesia/Blood Transfusion Reactions: Postoperative Nausea & Vomiting ( PONV) Past Psychological History: ADD/ADHD, Bipolar, Schizophrenia Smoking Status: Current every day smoker Past Alcohol Use History: None Reported Past Drug Use History: Methamphetamine - Past Family History Mother Additional Family Medical History / Comment(s): blood clot main artery neck Medications and Allergies Home Medications and Allergies Comment(s): Current Medications Acetaminophen (Tylenol Tab) 650 mg PO Q4HR PRN PRN Reason: Pain/Discomfort Al Hydroxide/Mg Hydroxide (Maalox) 30 ml PO Q4HR PRN PRN Reason: GI Upset Aripiprazole (Abilify) 10 mg PO DAILY [facility] Last Admin: 01/03/18 10:13 Dose: 10 mg Buspirone HCl (Buspar) 10 mg PO BID [facility] Last Admin: 01/03/18 21:45 Dose: 10 mg Magnesium Hydroxide (Milk Of Magnesia) 2,400 mg PO DAILY PRN PRN Reason: Constipation Nicotine (Habitrol 14mg/24hr Patch) 1 patch TRANSDERM DAILY [facility] Last Admin: 01/03/18 10:13 Dose: 1 patch Trimethoprim/Sulfamethoxazole (Bactrim Ds) 1 each PO BID [facility] Stop: 01/07/18 23:59 Last Admin: 01/03/18 21:45 Dose: 1 each Ziprasidone (Geodon) 20 mg IM BID PRN PRN Reason: Agitation or Acute Psychosis Home Medications Medication Instructions Recorded Confirmed Type Acyclovir 400 mg PO BID 12/30/17 12/30/17 History Escitalopram [Lexapro] 10 mg PO DAILY 12/30/17 12/30/17 History FLUoxetine HCL [PROzac] 20 mg PO DAILY 12/30/17 12/30/17 History Allergies Allergy/AdvReac Type Severity Reaction Status Date / Time No Known Allergies Allergy Verified 12/30/17 08:56 Physical Exam Vitals: Vital Signs Temp Pulse Resp BP 01/03/18 06:31 97.9 F 66 16 118/62 HEENT: Anicteric conjunctiva are pink and moist nasal mucosa grossly intact without significant lesions, there is no thrush. Is evidence of the mild acneiform lesions to her face Neck: The neck is supple without significant lymphadenopathy or thyromegaly. Lungs: Good bilateral air entry without significant crackles or wheezing. There is no significant bronchial sounds. There is no egophony or dullness. Heart: Regular rate and rhythm with an audible S1-S2, no S3 no S4. There is no significant murmur click or rub, PMI was nondisplaced. Abdomen: Positive bowel sounds soft and nontender without palpable masses or organomegaly. There was no guarding or rebound. Extremities: The upper extremities have excellent pulses they are symmetric, no significant petechiae or telangiectasia. No splinter hemorrhages were noted. The lower extremities are free from significant edema. The peripheral pulses were 2+ and symmetric. Neuro: Awake alert oriented to person place and time. There are no acute new gross focal sensory motor deficits. Results CBC & Chem 7: 12/31/17 10:22 01/02/18 12:17 Labs: Microbiology - Last 24 Hours (Table) 01/01/18 14:30 Urine Culture - Final Urine,Clean Catch Escherichia coli Laboratory Results WBC 5.9 k/uL (3.8-10.6) 12/31/17 10: RBC 4.58 m/uL (3.80-5.40) 12/31/17 10:22 Hgb 14.0 gm/dL (11.4-16.0) 12/31/17 10:22 Hct 42.5 % (34.0-46.0) 12/31/17 10:22 MCV 92.9 fL (80.0-100.0) 12/31/17 10:22 MCH 30.6 pg (25.0-35.0) 12/31/17 10: MCHC 33.0 g/dL (31.0-37.0) 12/31/17 10:22 RDW 12.9 % (11.5-15.5) 12/31/17 10:22 Plt Count 276 k/uL (150-450) 12/31/17 10:22 Neutrophils % 60 % 12/31/17 10:22 Lymphocytes % 30 % 12/31/17 10:22 Monocytes % 5 % 12/31/17 10:22 Eosinophils % 2 % 12/31/17 10:22 Basophils % 0 % 12/31/17 10:22 Neutrophils # 3.6 k/uL (1.3-7.7) 12/31/17 10:22 Lymphocytes # 1.8 k/uL (1.0-4.8) 07/10/18 10:22 Monocytes # 0.3 k/uL (0-1.0) 12/31/17 10:22 Eosinophils # 0.1 k/uL (0-0.7) 12/31/17 10:22 Basophils # 0.0 k/uL (0-0.2) 12/31/17 10:22 PT 11.4 sec (9.0-12.0) 12/29/17 19:00 INR 1.2 (<1.2) H 12/29/17 19:00 APTT 23.6 sec (22.0-30.0) 12/29/17 19:00 Sodium 143 mmol/L (137-145) 01/02/18 12:17 Potassium 4.4 mmol/L (3.5-5.1) 01/02/18 12:17 Chloride 104 mmol/L (98-107) 01/02/18 12:17 Carbon Dioxide 27 mmol/L (22-30) 01/02/18 12:17 Anion Gap 12 mmol/L 01/02/18 12:17 BUN 13 mg/dL (7-17) 01/02/18 12:17 Creatinine 0.65 mg/dL (0.52-1.04) 01/02/18 12:17 Est GFR (CKD-EPI)AfAm >90 (>60 ml/min/1.73 sqM) 01/02/18 12:17 Est GFR (CKD-EPI)NonAf >90 (>60 ml/min/1.73 sqM) 01/02/18 12:17 Glucose 85 mg/dL (74-99) 01/02/18 12:17 POC Glucose (mg/dL) 92 mg/dL (75-99) 12/29/17 18:07 POC Glu Staff Counselor ID Tosin Macias 12/29/17 18:07 Calcium 9.7 mg/dL (8.4-10.2) 01/02/18 12:17 Total Bilirubin 0.5 mg/dL (0.2-1.3) 01/02/18 12:17 AST 161 U/L (14-36) H 01/02/18 12:17 ALT 357 U/L (9-52) H 01/02/18 12:17 Alkaline Phosphatase 82 U/L (38-126) 01/02/18 12:17 Total Creatine Kinase 142 U/L (30-135) H 12/29/17 19:00 CK-MB (CK-2) 2.2 ng/mL (0.0-2.4) 12/29/17 19:00 CK-MB (CK-2) Rel Index 1.5 12/29/17 19:00 Troponin I <0.012 ng/mL (0.000-0.034) 12/29/17 19:00 Total Protein 7.4 g/dL (6.3-8.2) 01/02/18 12:17 Albumin 4.3 g/dL (3.5-5.0) 01/02/18 12:17 Amylase 40 U/L (30-110) 12/31/17 10:22 Lipase 108 U/L (23-300) 12/31/17 10:22 TSH 0.821 mIU/L (0.465-4.680) 12/31/17 10:22 Urine Color Yellow 01/01/18 14:30 Urine Appearance Cloudy (Clear) H 01/01/18 14:30 Urine pH 6.0 (5.0-8.0) 01/01/18 14:30 Ur Specific [place] 1.020 (1.001-1.035) 01/01/18 14:30 Urine Protein Trace (Negative) H 01/01/18 14:30 Urine Glucose (UA) Negative (Negative) 01/01/18 14:30 Urine Ketones Trace (Negative) H 01/01/18 14:30 Urine Blood Negative (Negative) 01/01/18 14:30 Urine Nitrite Negative (Negative) 01/01/18 14:30 Urine Bilirubin Negative (Negative) 01/01/18 14:30 Urine Urobilinogen 6.0 mg/dL (<2.0) 01/01/18 14:30 Ur Leukocyte Esterase Moderate (Negative) H 01/01/18 14:30 Urine RBC 3 /hpf (0-5) 01/01/18 14:30 Urine WBC 25 /hpf (0-5) H 01/01/18 14:30 Ur Squamous Epith Cells 16 /hpf (0-4) H 01/01/18 14:30 Urine Bacteria Few /hpf (None) H 01/01/18 14:30 Urine Mucus Many /hpf (None) H 01/01/18 14:30 Urine HCG, Qual Not Detected (Not Detectd) 12/29/17 19:50 Salicylates <1.0 mg/dL 12/29/17 19:00 Urine Opiates Screen Not Detected (NotDetected) 12/29/17 19:50 Ur Oxycodone Screen Not Detected (NotDetected) 12/29/17 19:50 Urine Methadone Screen Not Detected (NotDetected) 12/29/17 19:50 Ur Propoxyphene Screen Not Detected (NotDetected) 12/29/17 19:50 Acetaminophen <10.0 ug/mL 12/29/17 19:00 Ur Barbiturates Screen Not Detected (NotDetected) 12/29/17 19:50 U Tricyclic Antidepress Not Detected (NotDetected) 12/29/17 19:50 Ur Phencyclidine Scrn Not Detected (NotDetected) 12/29/17 19:50 Ur Amphetamines Screen Detected (NotDetected) H 12/29/17 19:50 U Methamphetamines Scrn Detected (NotDetected) H 12/29/17 19:50 U Benzodiazepines Scrn Not Detected (NotDetected) 12/29/17 19:50 Urine Cocaine Screen Not Detected (NotDetected) 12/29/17 19:50 U Marijuana (THC) Screen Detected (NotDetected) H 12/29/17 19:50 Hepatitis A IgM Ab Non-Reactive (Non-Reactive) 12/31/17 10:22 Hep Bs Antigen Non-Reactive (Non-Reactive) 12/31/17 10:22 Hep B Core IgM Ab Non-Reactive (Non-Reactive) 12/31/17 10:22 Hep C IgG Ab Reactive (Non-Reactive) H 12/31/17 10:22 Microbiology 01/01/18 14:30 Urine,Clean Catch Urine Culture - Final Escherichia coli Assessment and Plan (1) E. coli UTI Current Visit: Yes Status: Acute Code(s): N39.0 - URINARY TRACT INFECTION, SITE NOT SPECIFIED; B96.20 - UNSP ESCHERICHIA COLI THE CAUSE OF DISEASES CLASSD [facility] SNOMED Code(s): 415930611 (2) Hepatitis C antibody positive in blood Narrative/Plan: 27-year-old female has a history of polysubstance abuse including methamphetamine, amphetamines and marijuana with a remote history of injection drug use presented to the psychiatric unit with ongoing difficulties. She's having some improvement with current therapy. And likely will go to the rehabilitation facility in [facility] on Saturday. We have asked for follow blood work which includes hepatitis C viral load and genotype if this is positive. This within further help direct are antiviral therapy against hepatitis C if it turns out to be active. After several liver 30 been performed that reveals evidence of underlying hepatitis. She likely does have chronic active hepatitis C but we need further data to specifically determine this. She understands she will need to follow up with me in the outpatient office after her discharge from the rehabilitation facility today and initiate hopefully oral antiviral therapy for the treatment of her hepatitis C they can be curative and the vast majority of cases. She would need to be in her community and have stability of her underlying mental illness to be able to go through the antiviral therapy treatment if indicated. HIV testing was also sent in and pending at this time Current Visit: Yes Status: Acute Code(s): R76.8 - OTHER SPECIFIED ABNORMAL IMMUNOLOGICAL FINDINGS IN SERUM SNOMED Code(s): 843804003
[2018-01-04] MEDS: busPIRone HCl 10 MG TAB PO SCH ×2 (09:46→20:05)
[2018-01-04] MEDS: LEVOFLOXACIN 500 MG TAB PO SCH (09:46)
[2018-01-04] MEDS: ARIPiprazole 10 MG TAB PO SCH (09:46)
[2018-01-04] MEDS: NICOTINE 14MG/24HR PATCH TRANSDERM SCH (09:46)
[2018-01-04 12:11] VITALS: BMI 24.6
--- NOTE | 2018-01-04 13:24 | P.GSCN ---
History of Present Illness Consult date: 01/04/18 Reason for Consult: Cholelithiasis History of present illness: The patient's a 27-year-old female who was admitted to the mental health unit with polysubstance abuse. Part of her workup did show elevated liver function tests and she was positive for hepatitis C. An ultrasound was obtained to evaluate the liver and she was found to have gallstones. She denies any current abdominal pain. She typically does not have nausea or vomiting with eating. No abdominal pain with eating. She gets a little periumbilical discomfort from time to time. No jaundice, tea-colored urine, acholic stool. No blood in stool or dark tarry stool. He's never been told about gallstones in the past. Review of Systems All systems: negative Past Medical History Past Medical History: No Reported History Additional Past Medical History / Comment(s): hx herpes, Hep C, substance abuse History of Any Multi-Drug Resistant Organisms: MRSA Year Discovered:: 2013 MDRO Source:: lt leg, lt axillae Past Surgical History: Section Additional Past Surgical History / Comment(s): Wrist sx Past Anesthesia/Blood Transfusion Reactions: Postoperative Nausea & Vomiting ( PONV) Past Psychological History: ADD/ADHD, Bipolar, Schizophrenia Smoking Status: Current every day smoker Past Alcohol Use History: None Reported Additional Past Alcohol Use History / Comment(s): smoker since 2004 <1 ppd Past Drug Use History: Methamphetamine - Past Family History Mother Additional Family Medical History / Comment(s): blood clot main artery neck Medications and Allergies Home Medications Medication Instructions Recorded Confirmed Type Acyclovir 400 mg PO BID 12/30/17 12/30/17 History Escitalopram [Lexapro] 10 mg PO DAILY 12/30/17 12/30/17 History FLUoxetine HCL [PROzac] 20 mg PO DAILY 12/30/17 12/30/17 History Allergies Allergy/AdvReac Type Severity Reaction Status Date / Time No Known Allergies Allergy Verified 01/04/18 11:47 Surgical - Exam Osteopathic Statement: *. No significant issues noted on an osteopathic structural exam other than those noted in the History and Physical/Consult. Vital Signs Temp Pulse Resp BP Pulse Ox 98.3 F 80 18 122/78 100 12/29/17 17:49 12/29/17 17:49 12/29/17 17:49 12/29/17 17:49 12/29/17 17:49 - General well developed, well nourished, no distress - Eyes normal ocular movement - ENT normal mucosa, no congestion - Neck trachea midline, no lymphadectomy - Respiratory normal expansion, normal respiratory effort - Abdomen Abdomen: soft, non tender, bowel sounds Results - Labs 12/31/17 10:22 01/02/18 12:17 Microbiology - Last 24 Hours (Table) 01/01/18 14:30 Urine Culture - Final Urine,Clean Catch Escherichia coli - Imaging US - abdomen: report reviewed Assessment and Plan (1) Cholelithiasis Current Visit: Yes Status: Acute Code(s): K80.20 - CALCULUS OF GALLBLADDER W /O CHOLECYSTITIS W/O OBSTRUCTION SNOMED Code(s): 173830736 (2) E. coli UTI Current Visit: Yes Status: Acute Code(s): N39.0 - URINARY TRACT INFECTION, SITE NOT SPECIFIED; B96.20 - UNSP ESCHERICHIA COLI THE CAUSE OF DISEASES CLASSD [facility] SNOMED Code(s): 681991208 (3) Hepatitis C antibody positive in blood Current Visit: Yes Status: Acute Code(s): R76.8 - OTHER SPECIFIED ABNORMAL IMMUNOLOGICAL FINDINGS IN SERUM SNOMED Code(s): 861705322 (4) Methamphetamine abuse Current Visit: Yes Status: Chronic Priority: High Code(s): F15.10 - OTHER STIMULANT ABUSE, UNCOMPLICATED SNOMED Code(s): 352872273 Plan: At present from the gallstones appeared to be a incidental finding. We went over symptoms of cholelithiasis or acute cholecystitis. If she develops any of those she should let someone know. Otherwise I wouldn't recommend any routine surgery until her hepatitis C has been cleared and substance abuse issues have been addressed. Questions were encouraged and answered.
--- NOTE | 2018-01-04 13:53 | P.PN ---
Progress Note - Text Progress Note Date: 01/04/18 Interval history: Patient seen in [facility] [place]. She reports that Saturday she is going to be going to rehab at [place]. She feels as though she' ll be ready for discharge. She feels like she has made some progress. She does describe feeling a little tired today. Mental status exam: She is alert and cooperative with the interview. Her affect is restricted. Her mood she describes feeling tired. She does does not verbalize any delusional thoughts. She denies any bothersome thoughts. She denies any thoughts of harm to self or others. She denies any hallucinations. She does not show any agitation. Plan: Patient will be maintained on current psychotropic medication regimen. We 'll monitor for any medication side effects and monitor her ongoing response. We'll continue to cover this patient through the weekend.
[2018-01-05 06:26] VITALS: RESP 12
[2018-01-05] MEDS: LEVOFLOXACIN 500 MG TAB PO SCH (08:14)
[2018-01-05] MEDS: ARIPiprazole 10 MG TAB PO SCH (08:14)
[2018-01-05] MEDS: NICOTINE 14MG/24HR PATCH TRANSDERM SCH (08:15)
[2018-01-05] MEDS: busPIRone HCl 10 MG TAB PO SCH ×2 (11:25→20:33)
[2018-01-05 14:53] LABS: N. gonorrhoeae,PCR Negative (Neg,Equiv); Neisseria Source Urine
[2018-01-05 15:11] LABS: C. trachomatis,PCR Negative (Neg,Equiv); Chlamydia trachomatis Source Urine
--- NOTE | 2018-01-05 17:52 | P.PN ---
Progress Note - Text Progress Note Date: 01/05/18 Interval history: Patient reports that she feels tired. She states she has been doing a lot of sleeping. She reports her mood has been up and down but no severe ups and downs. She talks a lot discharge planning for tomorrow. She plans on going to rehab. She inquired regarding lab results for hepatitis and HIV which we discussed. We discussed plan for her to follow-up with Dr. Rajput after she goes to rehab treatment. Mental status exam: She is alert and cooperative with the interview. Her affect overall is restricted. She describes her mood as some ups and downs but not severe ups and downs. She does not verbalize any thoughts of harm to self or others. She does not show any evidence of psychosis or agitation. Plan: Patient will be maintained on current psychotropic medication regimen. She will be monitored for any medication side effects and her ongoing response to treatment. Discharge planning is set for tomorrow.
[2018-01-06 06:45] VITALS: BP 106/62; PULSE 70; TEMP 97.8
[2018-01-06] MEDS: busPIRone HCl 10 MG TAB PO SCH (08:16)
[2018-01-06] MEDS: ARIPiprazole 10 MG TAB PO SCH (08:16)
[2018-01-06] MEDS: NICOTINE 14MG/24HR PATCH TRANSDERM SCH (08:16)
[2018-01-06] MEDS: LEVOFLOXACIN 500 MG TAB PO SCH (08:16)
--- NOTE | 2018-01-06 08:55 | P.DS ---
Providers Date of admission: 12/30/17 17:38 Expected date of discharge: 01/06/18 Attending physician: Martin Campbell Consults: 12/30/17 17:43 Consult Physician Routine Consulting Provider: Héctor Arellano Jr Consult Reason/Comments: H&P for mental health admission Do you want consulting provider notified?: Yes 01/02/18 14:24 Consult Physician Routine Consulting Provider: Scout Rajput Consult Reason/Comments: hep C Do you want consulting provider notified?: Yes 01/03/18 11:36 Consult Physician Routine Consulting Provider: Elton Larkin Consult Reason/Comments: cholelithiasis Do you want consulting provider notified?: Yes Primary care physician: Héctor Arellano - Discharge Diagnosis(es) (1) Psychosis Current Visit: Yes Status: Acute Priority: High (2) Methamphetamine use disorder, severe Current Visit: Yes Status: Acute Priority: High (3) Cannabis use disorder, mild, abuse Current Visit: Yes Status: Acute Priority: Medium Hospital Course: Brief summary admission note: This patient is a 27-year-old female who was admitted to the mental health unit through the emergency room with symptoms of acute psychosis and confusion. She was brought to the hospital by her mother as the patient presented to a family function appearing altered. She was described as being glazed over and having difficulty communicating. She reported feeling groggy and confused. She described a depressed mood with hopelessness thinking and ongoing anxiety. These symptoms occur in the context of ongoing methamphetamine use. She has a history of numerous psychiatric admissions for psychosis secondary to methamphetamine use. For full details please refer to my psychiatric evaluation dated 12/31/2017. Summary of hospital course: The patient was admitted to the mental health unit she did sign in voluntarily. She reported previous success with Abilify in terms of treating psychosis and stabilizing her mood. Abilify was initiated 10 mg daily. She described having ongoing anxiety symptoms and BuSpar was initiated 10 mg twice daily. He describes no side effects from these medications. Routine lab work revealed an elevated liver enzyme panel. Follow up studies revealed that she had hepatitis C antibody. A liver ultrasound was ordered which incidentally revealed cholelithiasis. She was also found to have a urinary tract infection. This is treated with Levaquin. The patient was seen by infectious disease and surgery. Both specialties agreed that their treatment plans. Initiate once the patient completed inpatient chemical dependency treatment. The patient demonstrated no agitated behavior area she reports a progressive improvement of mood while here. She is scheduled to start inpatient chemical dependency treatment today at [place] and will be transported there by her mother. Mental status exam: The patient is an alert female appearing her stated age. She is dressed in her own clothing. She is demonstrating significant facial acne. Eye contact is improved. Affect is brighter. She reports no hopelessness thinking and no suicidal ideation intent or plan. She is reporting no auditory or visual hallucinations or any specific delusions. There is no observed evidence of psychosis. She demonstrates no tangential thinking use associations or flight of ideas. Affect is more appropriately expressive. She demonstrates no verbal or physical aggressiveness. She demonstrates no abnormal involuntary movements. She is oriented to person place and date. She demonstrates future oriented thinking. She has several appropriate questions regarding her medical treatment. Impressions 1. Psychosis unspecified, rule out methamphetamine-induced psychosis, depression unspecified, rule out major depressive disorder versus bipolar depression, cannabis use disorder 2. Newly diagnosed hepatitis C, urinary tract infection Plan: The patient will be discharged from the mental health unit this morning to attend inpatient chemical dependency treatment at [place]. The patient will continue on Abilify 10 mg daily BuSpar 10 mg twice daily. She is encouraged to complete the program at [place]. She will follow up with [facility] upon discharge from [place]. She has completed a Medicaid application here on the mental health unit. We discussed the risks of engaging in substance use again. We discussed the importance of her not engaging in unprotected sex or use of needles. She is instructed to return to the hospital if any acute safety concerns. At this time she demonstrates no imminent risk and is appropriate for transition to inpatient chemical dependency treatment. Patient Condition at Discharge: Stable Plan - Discharge Summary Discharge Rx Participant: No New Discharge Prescriptions: New ARIPiprazole [Abilify] 10 mg PO DAILY tab busPIRone HCl [Buspar] 10 mg PO BID tab Levofloxacin [Levaquin] 500 mg PO DAILY tab Nicotine 14Mg/24Hr Patch [Habitrol] 1 patch TRANSDERM DAILY patch Continue Acyclovir 400 mg PO BID Discontinued FLUoxetine HCL [PROzac] 20 mg PO DAILY Escitalopram [Lexapro] 10 mg PO DAILY Discharge Medication List Acyclovir 400 mg PO BID 12/30/17 [History] ARIPiprazole [Abilify] 10 mg PO DAILY tab 01/06/18 [Rx] Levofloxacin [Levaquin] 500 mg PO DAILY tab 01/06/18 [Rx] Nicotine 14Mg/24Hr Patch [Habitrol] 1 patch TRANSDERM DAILY patch 01/06/18 [Rx] busPIRone HCl [Buspar] 10 mg PO BID tab 01/06/18 [Rx] Follow up Appointment(s)/Referral(s): intake,intake [Other] - 01/06/18 11:00 am Héctor Arellano Jr, DO [Primary Care Provider] - 1-2 days Patient Instructions/Handouts: Brief Psychotic Disorder (DC), Methamphetamine Abuse (DC) Activity/Diet/Wound Care/Special Instructions: Activity and Diet as tolerated. Avoid the use of street drugs and alcohol. Take all medications as prescribed, when you are in need of refills contact your medical doctor or psychiatrist. Please go to all scheduled outpatient appointments for aftercare treatment. If symptoms return or worsen you can call the crisis line @ and/or return to the nearest emergency room for evaluation.
[2018-01-06 13:56] LABS: HCV Quant Log 4.96 (<1.08)
== END 2018-01-06 09:13 | disposition home or self-care (01) | DRG 897 ==
LOC: EC 17:43 → 3MHU 12-30 17:38
PROVIDERS: ADMIT Psychiatry & Neurology Psychiatry; ATTEND Psychiatry & Neurology Psychiatry
DX: F15.259 Other stimulant dependence with stimulant-induced psychotic disorder, unspecified (principal); N39.0 Urinary tract infection, site not specified; K80.10 Calculus of gallbladder with chronic cholecystitis without obstruction; B18.2 Chronic viral hepatitis C; B96.20 Unspecified Escherichia coli [E. coli] as the cause of diseases classified elsewhere; F12.10 Cannabis abuse, uncomplicated; F17.200 Nicotine dependence, unspecified, uncomplicated; F19.239 Other psychoactive substance dependence with withdrawal, unspecified; F20.9 Schizophrenia, unspecified; F31.9 Bipolar disorder, unspecified; F41.9 Anxiety disorder, unspecified; R79.1 Abnormal coagulation profile; Z59.0 Homelessness; Z79.899 Other long term (current) drug therapy
CPT/HCPCS: 36415; 70450; 71045; 76705; 80053; 80074; 80306; 81001; 81025; 82150; 82550; 82553; 83520; 83690; 84443; 84484; 85025; 85610; 85730; 87077; 87086; 87186; 87390; 87491; 87522; 87591; 87902; 93005; 96374; 99285

== ENCOUNTER 2018-02-04 20:27 | Emergency (ER) | payer OTHER ==
[2018-02-04 20:33] VITALS: RESP 18
[2018-02-04] MEDS ORDERED: SODIUM CHLORIDE 0.9% 1,000 ML IV STA (20:56)
--- NOTE | 2018-02-04 21:00 | ED ---
Abdominal Pain HPI - General Chief Complaint: Abdominal Pain Stated Complaint: abd pain Time Seen by Provider: 02/04/18 20:40 Source: patient, RN notes reviewed Mode of arrival: ambulatory Limitations: no limitations - History of Present Illness Initial Comments: This is a 28-year-old female who presents to the emergency department with chief complaint of abdominal pain and flank pain. Patient states that she has had not been feeling well for the past couple of days. She reports intermittent sharp upper and lower abdominal pain and bilateral flank pain. She states that she has been nauseous but has had no episodes of vomiting. Denies diarrhea or constipation. Denies fevers or chills. States that she missed her period in the month of December and has not had it since the end of November. She states there is a possibility she could be . Patient also states that she was receiving injections of Abilify through [facility] and then abruptly stopped receiving them. She wonders if that could be contributing to some of her symptoms. - Related Data Home Medications Medication Instructions Recorded Confirmed Acyclovir 400 mg PO BID 12/30/17 02/04/18 Previous Rx's Medication Instructions Recorded ARIPiprazole [Abilify] 10 mg PO DAILY tab 01/06/18 busPIRone HCl [Buspar] 10 mg PO BID tab 01/06/18 Nitrofurantoin Monohyd/M-Cryst 100 mg PO Q12HR #10 cap 02/04/18 [Macrobid] Allergies Allergy/AdvReac Type Severity Reaction Status Date / Time No Known Allergies Allergy Verified 02/04/18 20:48 Review of Systems ROS Statement: Those systems with pertinent positive or pertinent negative responses have been documented in the HPI. ROS Other: All systems not noted in ROS Statement are negative. Past Medical History Past Medical History: No Reported History Additional Past Medical History / Comment(s): hx herpes, Hep C, substance abuse History of Any Multi-Drug Resistant Organisms: MRSA Date of last positivie culture/infection: 2013 MDRO Source:: lt leg, lt axillae Past Surgical History: Section Additional Past Surgical History / Comment(s): Wrist sx Past Anesthesia/Blood Transfusion Reactions: Postoperative Nausea & Vomiting ( PONV) Past Psychological History: ADD/ADHD, Bipolar Smoking Status: Current every day smoker Past Alcohol Use History: None Reported Past Drug Use History: Methamphetamine - Past Family History Mother Additional Family Medical History / Comment(s): blood clot main artery neck General Exam - General Exam Comments Initial Comments: General: Awake and alert, well-developed; in no apparent distress. Does not appear acutely ill. HEENT: Head atraumatic, normocephalic. Pupils are equal, round and reactive to light. Extraocular movements intact. Oropharynx moist without erythema or exudate. Neck: Supple. Normal ROM. Cardiovascular: Regular rate and rhythm. No murmurs, rubs or gallops. Chest symmetrical. Respiratory: Lungs clear to auscultation bilaterally. No wheezes, rales or rhonchi. Normal respiratory effort with no use of accessory muscles. Abdomen: Soft, non-tender, non-distended. No rigidity, rebound or guarding. Normal bowel sounds in all 4 quadrants. No CVA tenderness bilaterally. Musculoskeletal: Normal ROM, no tenderness bilateral upper and lower extremities. Ambulating normally. Skin: [place], warm and dry without rashes or lesions. Neurological: Alert and oriented x3. CN II-XII grossly intact. Speech is fluent and answers are appropriate. No focal neuro deficits. Psychiatric: Melancholic mood. Limitations: no limitations Course Vital Signs 02/04/18 20:29 Temperature 98.5 F Pulse Rate 97 Respiratory 18 Rate Blood Pressure 118/82 O2 Sat by Pulse 98 Oximetry Medical Decision Making - Medical Decision Making This is a 28-year-old female presents to the emergency department with chief complaint of abdominal and flank pain. Patient reports intermittent sharp generalized abdominal and bilateral flank pain for the past couple of days. On physical examination, patient does not appear acutely ill. Abdomen is soft and non-tender. No CVA tenderness. CBC is within normal limits. CMP did reveal elevated transaminases, however patient does have a history of hepatitis C and this is consistent with previous laboratory studies. UA was sent for a culture. Upon discussing this, patient states that she is having dysuria. She would like to be treated for urinary tract infection. Patient will be started on Macrobid. Patient's vital signs are stable and she is in no acute distress. She will be discharged home at this time. Recommend following up with her primary care provider. Recommended following up with [facility] to address Abilify injections that patient was receiving and stopped abruptly. She is in agreement with plan and voices understanding. All questions answered. - Lab Data Result diagrams: 02/04/18 22:20 02/04/18 22:20 Lab Results 02/04/18 02/04/18 02/04/18 Range/Units 22:20 22:20 22:20 WBC 7.9 (3.8-10.6) k/uL RBC 4.52 (3.80-5.40) m/uL Hgb 14.0 (11.4-16.0) gm/dL Hct 41.5 (34.0-46.0) % MCV 91.8 (80.0-100.0) fL MCH 31.0 (25.0-35.0) pg MCHC 33.7 (31.0-37.0) g/dL RDW 13.1 (11.5-15.5) % Plt Count 239 (150-450) k/uL Neutrophils % 65 % Lymphocytes % 27 % Monocytes % 5 % Eosinophils % 2 % Basophils % 0 % Neutrophils # 5.1 (1.3-7.7) k/uL Lymphocytes # 2.1 (1.0-4.8) k/uL Monocytes # 0.4 (0-1.0) k/uL Eosinophils # 0.1 (0-0.7) k/uL Basophils # 0.0 (0-0.2) k/uL PT (9.0-12.0) sec INR (<1.2) APTT (22.0-30.0) sec Sodium 142 (137-145) mmol/L Potassium 4.2 (3.5-5.1) mmol/L Chloride 107 (98-107) mmol/L Carbon Dioxide 27 (22-30) mmol/L Anion Gap 8 mmol/L BUN 20 H (7-17) mg/dL Creatinine 0.50 L (0.52-1.04) mg/dL Est GFR (CKD-EPI)AfAm >90 (>60 ml/min/1.73 sqM) Est GFR (CKD-EPI)NonAf >90 (>60 ml/min/1.73 sqM) Glucose 82 (74-99) mg/dL Calcium 9.3 (8.4-10.2) mg/dL Total Bilirubin 0.5 (0.2-1.3) mg/dL AST 131 H (14-36) U/L ALT 304 H (9-52) U/L Alkaline Phosphatase 69 (38-126) U/L Total Protein 7.5 (6.3-8.2) g/dL Albumin 4.4 (3.5-5.0) g/dL Amylase (30-110) U/L Lipase (23-300) U/L Urine Color Urine Appearance (Clear) Urine pH (5.0-8.0) Ur Specific [place] (1.001-1.035) Urine Protein (Negative) Urine Glucose (UA) (Negative) Urine Ketones (Negative) Urine Blood (Negative) Urine Nitrite (Negative) Urine Bilirubin (Negative) Urine Urobilinogen (<2.0) mg/dL Ur Leukocyte Esterase (Negative) Urine RBC (0-5) /hpf Urine Bacteria (None) /hpf Urine Mucus (None) /hpf Urine Yeast (Budding) (None) /hpf Urine HCG, Qual Not Detected (Not Detectd) 02/04/18 02/04/18 02/04/18 Range/Units 22:20 22:20 22:20 WBC (3.8-10.6) k/uL RBC (3.80-5.40) m/uL Hgb (11.4-16.0) gm/dL Hct (34.0-46.0) % MCV (80.0-100.0) fL MCH (25.0-35.0) pg MCHC (31.0-37.0) g/dL RDW (11.5-15.5) % Plt Count (150-450) k/uL Neutrophils % % Lymphocytes % % Monocytes % % Eosinophils % % Basophils % % Neutrophils # (1.3-7.7) k/uL Lymphocytes # (1.0-4.8) k/uL Monocytes # (0-1.0) k/uL Eosinophils # (0-0.7) k/uL Basophils # (0-0.2) k/uL PT 10.5 (9.0-12.0) sec INR 1.1 (<1.2) APTT 25.6 (22.0-30.0) sec Sodium (137-145) mmol/L Potassium (3.5-5.1) mmol/L Chloride (98-107) mmol/L Carbon Dioxide (22-30) mmol/L Anion Gap mmol/L BUN (7-17) mg/dL Creatinine (0.52-1.04) mg/dL Est GFR (CKD-EPI)AfAm (>60 ml/min/1.73 sqM) Est GFR (CKD-EPI)NonAf (>60 ml/min/1.73 sqM) Glucose (74-99) mg/dL Calcium (8.4-10.2) mg/dL Total Bilirubin (0.2-1.3) mg/dL AST (14-36) U/L ALT (9-52) U/L Alkaline Phosphatase (38-126) U/L Total Protein (6.3-8.2) g/dL Albumin (3.5-5.0) g/dL Amylase 42 (30-110) U/L Lipase 64 (23-300) U/L Urine Color Yellow Urine Appearance Turbid H (Clear) Urine pH 5.5 (5.0-8.0) Ur Specific [place] 1.030 (1.001-1.035) Urine Protein Trace H (Negative) Urine Glucose (UA) 3+ H (Negative) Urine Ketones Negative (Negative) Urine Blood Negative (Negative) Urine Nitrite Negative (Negative) Urine Bilirubin Negative (Negative) Urine Urobilinogen 3.0 (<2.0) mg/dL Ur Leukocyte Esterase Negative (Negative) Urine RBC 20 H (0-5) /hpf Urine Bacteria Occasional H (None) /hpf Urine Mucus Occasional H (None) /hpf Urine Yeast (Budding) Many H (None) /hpf Urine HCG, Qual (Not Detectd) Disposition Clinical Impression: Abdominal pain, UTI (urinary tract infection) Disposition: HOME SELF-CARE Condition: Good Instructions: Abdominal Pain (ED), Urinary Tract Infection in Women (ED) Additional Instructions: Please follow up with primary care provider within 1-2 days. Return to emergency department if symptoms should worsen or any concerns arise. Prescriptions: Nitrofurantoin Monohyd/M-Cryst [Macrobid] 100 mg PO Q12HR #10 cap Is patient prescribed a controlled substance at d/c from ED?: No Referrals: None,Stated [Primary Care Provider] - 1-2 days Time of Disposition: 23:29
[2018-02-04 22:39] LABS: Basophils % (A) 0 %; Eosinophils # (A) 0.1 k/uL (0-0.7); Eosinophils % (A) 2 %; HCT 41.5 % (34.0-46.0); Lymphocytes # (A) 2.1 k/uL (1.0-4.8); Lymphocytes % (A) 27 %; MCHC 33.7 g/dL (31.0-37.0); MCV 91.8 fL (80.0-100.0); Mean Platelet Volume 6.9; Monocytes # (A) 0.4 k/uL (0-1.0); Monocytes % (A) 5 %; Neutrophils # (A) 5.1 k/uL (1.3-7.7); Neutrophils % (A) 65 %; Platelet Count 239 k/uL (150-450); RBC 4.52 m/uL (3.80-5.40); RDW 13.1 % (11.5-15.5); WBC 7.9 k/uL (3.8-10.6)
[2018-02-04 22:42] LABS: Appearance,Urine Turbid (Clear); Bacteria,Urine Occasional /hpf; Bilirubin,Urine Negative (Negative); Blood,Urine Negative (Negative); Budding Yeast,Urine Many /hpf; Color,Urine Yellow; Glucose,Urine (UA) 3+ (Negative); Ketones,Urine Negative (Negative); Leukocyte Esterase,Urine Negative (Negative); Mucus,Urine Occasional /hpf; Nitrite,Urine Negative (Negative); PH, Urine 5.5 (5.0-8.0); Protein,Urine Trace (Negative); RBC,Urine 20 /hpf (0-5)
[2018-02-04 22:48] LABS: INR 1.1 (<1.2); Partial Thromboplastin Time 25.6 sec (22.0-30.0); Prothrombin Time 10.5 sec (9.0-12.0)
[2018-02-04 22:55] LABS: ALT 304 U/L (9-52); AST 131 U/L (14-36); Albumin 4.4 g/dL (3.5-5.0); Alkaline Phosphatase 69 U/L (38-126); Anion Gap 8 mmol/L; Blood Urea Nitrogen 20 mg/dL (7-17); Calcium 9.3 mg/dL (8.4-10.2); Carbon Dioxide 27 mmol/L (22-30); Chloride 107 mmol/L (98-107); Glucose 82 mg/dL (74-99); Potassium 4.2 mmol/L (3.5-5.1); Sodium 142 mmol/L (137-145); Total Bilirubin 0.5 mg/dL (0.2-1.3); Total Protein 7.5 g/dL (6.3-8.2)
[2018-02-04 23:21] LABS: Amylase 42 U/L (30-110); Lipase 64 U/L (23-300)
[2018-02-04] MEDS ORDERED: NITROFURANTOIN MONOHYD/M-CRYST 100 MG CAP PO STA (23:30)
[2018-02-05 00:02] VITALS: BP 120/86; PULSE 96; TEMP 98.6
== END 2018-02-04 23:58 | disposition home or self-care (01) ==
LOC: EC 20:27
DX: N39.0 Urinary tract infection, site not specified (principal); R74.8 Abnormal levels of other serum enzymes; F17.200 Nicotine dependence, unspecified, uncomplicated; Z79.899 Other long term (current) drug therapy; Z86.19 Personal history of other infectious and parasitic diseases; Z86.14 Personal history of Methicillin resistant Staphylococcus aureus infection
CPT/HCPCS: 36415; 80053; 81001; 81025; 82150; 83690; 85025; 85610; 85730; 87086; 96360; 99284

== ENCOUNTER → 2018-12-10 | Outpatient (CLI) | payer MEDICAID, OTHER ==
[2018-12-10 14:49] LABS: Basophils % (A) 0 %; Eosinophils # (A) 0.1 k/uL (0-0.7); Eosinophils % (A) 1 %; HCT 40.8 % (34.0-46.0); HGB 13.2 gm/dL (11.4-16.0); Lymphocytes # (A) 2.3 k/uL (1.0-4.8); Lymphocytes % (A) 29 %; MCH 31.1 pg (25.0-35.0); MCHC 32.3 g/dL (31.0-37.0); MCV 96.5 fL (80.0-100.0); Mean Platelet Volume 7.1; Monocytes # (A) 0.4 k/uL (0-1.0); Monocytes % (A) 5 %; Neutrophils # (A) 5.1 k/uL (1.3-7.7); Neutrophils % (A) 63 %; Platelet Count 265 k/uL (150-450); RBC 4.23 m/uL (3.80-5.40); RDW 13.7 % (11.5-15.5)
[2018-12-10 19:29] LABS: African American GFR (CKD) 135.7 (60.0-200.0); Albumin 4.6 g/dL (3.80-4.90); Albumin/Globulin Ratio 2.19 (1.60-3.17); Anion Gap 9.7 mmol/L (4.00-12.00); BUN/Creat Ratio 18.57 Ratio (12.00-20.00); Calcium 9.5 mg/dL (8.7-10.3); Carbon Dioxide 22.3 mmol/L (21.6-31.8); Globulin 2.1 g/dL (1.6-3.3); Potassium 4.1 mmol/L (3.5-5.5); Total Bilirubin 0.5 mg/dL (0.2-1.2); Total Protein 6.7 g/dL (6.2-8.2)
[2018-12-11 14:54] LABS: Hepatits C Virus RNA Not detected (Not detected); Hepatits C Virus RNA, Quant <12 IU/mL (<12); LOG HCV IU/mL <1.08 (<1.08)
== END | disposition home or self-care (01) ==
LOC: LABWHC1 13:54
PROVIDERS: ATTEND Internal Medicine Infectious Disease
DX: B19.20 Unspecified viral hepatitis C without hepatic coma (principal)
CPT/HCPCS: 36415; 80053; 85025; 87522

== ENCOUNTER → 2020-12-06 | Outpatient (CLI) | payer OTHER ==
--- NOTE | 2020-12-07 07:12 | US ---
EXAMINATION TYPE: US OB >= 14 wk fetus DATE OF EXAM: 12/06/2020 COMPARISON: None CLINICAL HISTORY: O36.63X0 LARGE FOR DATES; smoker; TECHNIQUE: Transabdominal (TA) GESTATIONAL AGE / DATING Physician Established: (36 weeks/6 days) EDC: 12/28/2020 Dates by LMP: LMP unknown Dates by First Scan: No previous here. Dates by Current Scan: (31 weeks/6 days) EDC: 02/01/2021 Beta HCG (if available): NA SURVEY IUP: Single PLACENTA: Anterior; possible venous garcia noted as mixed, hypoechoic area seen mid placenta =1.5 x 1.3 x 1.9cm PREVIA: No Previa PEDRO: 12.0 cm Normal CERVICAL LENGTH (transabdominal: norm > 3.0cm): 3.6 cm BIOMETRY PRESENTATION: Vertex LIE: Longitudinal BPD: 7.8 cm 31 weeks / 3 days HC: 28.3 cm 31 weeks / 0 days AC: 29.5 cm 33 weeks / 4 days FL: 6.3 cm 32 weeks / 5 days ESTIMATED WEIGHT IN GRAMS: 2059.0 grams ESTIMATED WEIGHT IN LBS/OZ: 4 lbs. 9 oz. WEIGHT PERCENTAGE BASED ON ESTABLISHED DATES: <3%, however, patient unsure of LMP HC/AC: 0.96 Normal FL/AC: 21.43 Normal HEART RATE: 136 bpm RHYTHM: Normal Single, live IUP, 31 weeks/6 days, EDC: 02/01/2021, [id number]. EFW is < 10% and may not reflect accura cy based on patient's history and no prior US here. This is not an anatomic survey. IMPRESSION: Single live intrauterine measuring 31 weeks and 6 days by sonographic criteria. Estimated f etal weight is less than 10%, however, patient is uncertain of last menstrual period and there are no prior ultrasounds available for comparison. Clinical correlation is recommended.
== END | disposition home or self-care (01) ==
LOC: RADUSWWP 14:04
PROVIDERS: ATTEND Obstetrics & Gynecology
DX: O36.63X0 Maternal care for excessive fetal growth, third trimester, not applicable or unspecified (principal); Z3A.31 31 weeks gestation of pregnancy
CPT/HCPCS: 76805

== ENCOUNTER 2020-12-27 12:58 | Inpatient (IN) | payer OTHER ==
[2020-12-27] MEDS ORDERED: CITRIC ACID-SODIUM CITRATE 15 ML CUP PO ONE (13:31)
[2020-12-27] MEDS: LACTATED RINGERS 1,000 ML IV SCH ×2 (13:54→14:16)
[2020-12-27 14:06] LABS: Basophils % (A) 0 %; Eosinophils # (A) 0.2 k/uL (0-0.7); Eosinophils % (A) 1 %; HCT 37.5 % (34.0-46.0); HGB 12.7 gm/dL (11.4-16.0); Lymphocytes # (A) 2.2 k/uL (1.0-4.8); Lymphocytes % (A) 14 %; MCH 28.5 pg (25.0-35.0); MCHC 33.8 g/dL (31.0-37.0); MCV 84.3 fL (80.0-100.0); Mean Platelet Volume 8.2; Monocytes # (A) 0.6 k/uL (0-1.0); Monocytes % (A) 4 %; Neutrophils # (A) 12.4 k/uL (1.3-7.7); Neutrophils % (A) 80 %; Platelet Count 296 k/uL (150-450); RBC 4.45 m/uL (3.80-5.40); RDW 15.2 % (11.5-15.5); WBC 15.5 k/uL (3.8-10.6)
[2020-12-27 14:12] LABS: ALT 15 U/L (4-34); AST 26 U/L (14-36); African American GFR (CKD) >90 (>60 ml/min/1.73 sqM); Blood Urea Nitrogen 9 mg/dL (7-17); LDH 597 U/L (313-618); Non-African American GFR(CKD) >90 (>60 ml/min/1.73 sqM); Uric Acid 5.3 mg/dL (3.7-7.4)
[2020-12-27] MEDS ORDERED: ONDANSETRON 4 MG/2 ML VIAL ONE (14:15)
[2020-12-27] MEDS ORDERED: MORPHINE SULFATE (PF) 0.3 MG/0.3 ML SYR ONE (14:15)
[2020-12-27] MEDS ORDERED: KETOROLAC 15 MG/ML 1 ML VIAL ONE (14:15)
[2020-12-27] MEDS ORDERED: OXYTOCIN 30 UNITS/500 ML NS BAG IV ONE (14:15)
[2020-12-27 14:16] LABS: Appearance,Urine Cloudy (Clear); Bilirubin,Urine Negative (Negative); Blood,Urine Negative (Negative); Color,Urine Yellow; Glucose,Urine (UA) 3+ (Negative); Ketones,Urine Negative (Negative); Leukocyte Esterase,Urine Trace (Negative); Mucus,Urine Rare /hpf; Nitrite,Urine Negative (Negative); PH, Urine 6.5 (5.0-8.0); Protein,Urine Trace (Negative); RBC,Urine <1 /hpf (0-5); Specific Gravity,Urine 1.015 (1.001-1.035); Squamous Epithelial Cell,Urine 1 /hpf (0-4); Urobilinogen,Urine <2.0 mg/dL (<2.0); WBC,Urine 1 /hpf (0-5)
[2020-12-27 14:19] LABS: Creatinine,Urine Random 94.8 mg/dL; Protein/Creatinine Ratio,Urine 0.137
[2020-12-27 14:27] LABS: Amphetamine Screen,Urine Detected (NotDetected); Barbiturate Screen,Urine Not Detected (NotDetected); Benzodiazepines Screen,Urine Not Detected (NotDetected); Cocaine Screen,Urine Not Detected (NotDetected); Methadone Screen, Urine Not Detected (NotDetected); Opiate Screen,Urine Not Detected (NotDetected); Oxycodone Screen, Urine Not Detected (NotDetected); Phencyclidine Screen,Urine Not Detected (NotDetected); Tricyclic Antidepressant,Urine Not Detected (NotDetected); Urn Cannabinoid Scrn Detected (NotDetected)
[2020-12-27] MEDS ORDERED: NALOXONE 0.4 MG/ML 1 ML VIAL IV PRN (14:54)
[2020-12-27] MEDS ORDERED: ONDANSETRON 4 MG/2 ML VIAL IVP PRN (14:54)
[2020-12-27] MEDS ORDERED: METOCLOPRAMIDE 5 MG/ML 2 ML VIAL IVP PRN (14:54)
[2020-12-27] MEDS ORDERED: diphenhydrAMINE 50 MG/ML 1 ML VIAL IVP PRN ×2 (14:54)
[2020-12-27] MEDS ORDERED: diphenhydrAMINE 50 MG CAP PO PRN (14:54)
[2020-12-27] MEDS ORDERED: ZOLPIDEM 5 MG TAB PO PRN (14:54)
[2020-12-27] MEDS ORDERED: diphenhydrAMINE 25 MG CAP PO PRN (14:54)
--- NOTE | 2020-12-27 14:59 | P.HPOB ---
History of Present Illness H&P Date: 12/27/20 Chief Complaint: : Prior sections: Family planning Juliann is a 30-year-old at 38 weeks gestation arise in active labor she was dilated 3 cm she's had 2 prior C-sections and that planning is requested. She will undergo a repeat low transverse section this afternoon. Risks/benefits/alternatives were reviewed with the patient in detail and all questions were answered for her prior to proceeding to the operative. Patient's course highlighted by lack of care. She did I believe 2-3 visits with me and did not begin [facility] to 33 weeks. At that time of her significant concern over either dating issues were IUGR. She was sent to maternal medicine and they felt, with her dating and did not feel IUGR was an issue. She is scheduled today for repeat low transverse section. Pertinent labs could A- blood type, Rh and it was negative, rubella is immune, hepatitis B surface antigen is negative. Urine positive for methamphetamines, amphetamines and marijuana. She did denies using any of these other than marijuana since the beginning of the . Risks/benefits/alternatives to this procedure were reviewed with the patient in detail and all questions were answered for her prior to proceeding to the operative room. Verification of tubal occlusion was made prior to proceeding as well. Past Medical History Past Medical History: No Reported History Additional Past Medical History / Comment(s): hx herpes, Hep C, substance abuse History of Any Multi-Drug Resistant Organisms: MRSA Date of last positivie culture/infection: 2013 MDRO Source:: lt leg, lt axillae Past Surgical History: Section Additional Past Surgical History / Comment(s): Wrist sx Past Anesthesia/Blood Transfusion Reactions: Postoperative Nausea & Vomiting (PONV) Past Psychological History: ADD/ADHD, Bipolar Smoking Status: Current every day smoker Past Alcohol Use History: None Reported Past Drug Use History: Methamphetamine Additional Drug Use History / Comment(s): stopped using methampetamine at 17 weeks gestation - Past Family History Mother Additional Family Medical History / Comment(s): blood clot main artery neck Medications and Allergies Home Medications Medication Instructions Recorded Confirmed Type Acyclovir 400 mg PO BID 12/30/17 12/27/20 History Pnv No.95/Ferrous Fum/Folic AC 1 tab PO DAILY 12/27/20 12/27/20 History [ Multivitamin Tablet] Allergies Allergy/AdvReac Type Severity Reaction Status Date / Time No Known Allergies Allergy Verified 12/27/20 13:21 Exam Osteopathic Statement: *. No significant issues noted on an osteopathic structural exam other than those noted in the History and Physical/Consult. Vital Signs Temp Pulse Resp BP 12/27/20 13:47 96.3 F L 100 16 153/93 Intake and Output 12/26/20 12/27/20 12/27/20 22:59 06:59 14:59 Other: Weight 92.079 kg - OBG Physical Exam Breast: both: normal (no masses) Abdomen: bowel sounds normal, no diffuse tenderness, no bruit present, no guarding noted, no hepatomegaly, no splenomegaly, no mass Vulva: both: normal Vagina: normal moisture, no discharge Cervix: no lesion, no discharge Uterus: normal size, normal contour Adnexa: both: normal Anus/Rectum: normal perianal skin, no rectal mass, no hemorrhoids, heme negative Results Result Diagrams: 12/27/20 13:35 12/27/20 13:35 Abnormal Lab Results - Last 24 Hours (Table) 12/27/20 12/27/20 12/27/20 Range/Units 13:35 13:35 13:35 WBC 15.5 H (3.8-10.6) k/uL Neutrophils # 12.4 H (1.3-7.7) k/uL Urine Appearance Cloudy H (Clear) Urine Protein Trace H (Negative) Urine Glucose (UA) 3+ H (Negative) Ur Leukocyte Esterase Trace H (Negative) Urine Mucus Rare H (None) /hpf Ur Amphetamines Screen Detected H (NotDetected) U Methamphetamines Scrn Detected H (NotDetected) U Marijuana (THC) Screen Detected H (NotDetected)
[2020-12-27] MEDS ORDERED: LACTATED RINGERS 1,000 ML IV SCH (15:00)
--- NOTE | 2020-12-27 15:05 | P.OP ---
Date of Procedure: 12/27/20 Preoperative Diagnosis: Intrauterine at term: Prior sections: Family planning: Active labor Postoperative Diagnosis: Same Procedure(s) Performed: Repeat low transverse section with bilateral tubal occlusion Filshie clips Anesthesia: spinal Surgeon: Sterling [facility] Operator Helper #1: Fátima Cobb Estimated Blood Loss (ml): 385 IV fluids (ml): 200 Urine output (ml): 100 Pathology: other (Placenta) Condition: stable Disposition: floor Operative Findings: Female scores of 8 and 9 at one and 5 minutes respectively weight was 6 lbs. 7 oz. both mother and baby are stable following delivery Description of Procedure: Patient was taken to the operating suite where a spinal anesthetic was found be adequate. She was prepped and draped in the normal sterile fashion and placed in dorsal supine position with leftward tilt. Initially a Pfannenstiel skin incision was made and this incision was then carried through to underlying layer of the fascia with the second knife. Fascia was then nicked in the midline and this opening was extended laterally with Ramirez scissors. Superior and inferior aspect of this incision were then grasped tented up and bluntly and sharply dissected off the rectus muscles. Rectus muscles were then divided midline and sharp dissection to the peritoneum was performed. This opening was then extended superiorly and inferiorly with good visualization of both bowel bladder with Ramirez scissors. Once this accomplished bladder blade was placed in the bladder flap was identified. It was entered sharply with Metzenbaum scissors and carried across face uterus and bluntly dissected out of the operative field. Knife was then used to incise uterus this was done in 1 very gentle pass and the incision was then fully extended bluntly and artificial rupture membranes reveals meconium-stained fluid. Head was then atraumatically delivered mouth nares bulb suctioned and baby was fully delivered and nursery personnel was present to assume care. Umbilical course clamped cut usual fashion. Placenta was then delivered intact and Pitocin was added to the IV. Uterus was then exteriorized cleared of clots and debris and closed in 1 layer with 0 Vicryl suture. Once hemostasis was obtained blood and debris was suctioned the posterior cul-de-sac and the sutures were placed 2 cm from uterine cornu bilaterally. No bleeding is noted. Uterus was reinserted into the abdomen and peritoneal layer was reapproximated with 0 Vicryl suture. Fascial layer was closed with 0 Vicryl suture. One layer of 3-0 Vicryl placed in deep subcuticular tissues reapproximate skin and close the space. Skin was then closed with tristan. Sponge, lap, needle counts were all correct 2. Patient was then taken to the recovery room in stable and satisfactory condition.
[2020-12-27] MEDS: ACETAMINOPHEN TAB 500 MG TAB PO SCH (18:36)
[2020-12-27] MEDS: SENNOSIDES-DOCUSATE SODIUM 1 EACH TAB PO SCH (21:51)
[2020-12-28] MEDS: ACETAMINOPHEN TAB 500 MG TAB PO SCH ×3 (00:36→17:44)
[2020-12-28] MEDS: KETOROLAC 15 MG/ML 1 ML VIAL IVP SCH (00:50)
[2020-12-28 06:17] LABS: Basophils % (A) 0 %; Eosinophils # (A) 0.1 k/uL (0-0.7); Eosinophils % (A) 1 %; HGB 11.5 gm/dL (11.4-16.0); Lymphocytes # (A) 2.2 k/uL (1.0-4.8); Lymphocytes % (A) 18 %; MCH 29.4 pg (25.0-35.0); MCHC 34.7 g/dL (31.0-37.0); MCV 84.7 fL (80.0-100.0); Mean Platelet Volume 8.1; Monocytes # (A) 0.7 k/uL (0-1.0); Monocytes % (A) 5 %; Neutrophils # (A) 9.4 k/uL (1.3-7.7); Neutrophils % (A) 76 %; Platelet Count 245 k/uL (150-450); RDW 15.5 % (11.5-15.5); WBC 12.5 k/uL (3.8-10.6)
--- NOTE | 2020-12-28 06:35 | P.PN ---
Progress Note - Text Progress Note Date: 12/28/20 Postoperative day 1 status post section under spinal anesthesia, and intrathecal morphine given for postoperative analgesia, patient doing well, there is no anesthesia related complications Patient had no headache, vital signs stable Assessment and plan = postop day 1 status post , doing well there is no anesthesia related complication
[2020-12-28] MEDS: SENNOSIDES-DOCUSATE SODIUM 1 EACH TAB PO SCH ×2 (07:36→23:52)
--- NOTE | 2020-12-28 08:00 | P.PNOBGPC ---
Subjective - Subjective Principal diagnosis: Postop day 1 Interval history: Overall Juliann is doing well. It is noted her blood pressures little bit is a 151/90, however her preeclamptic labs yesterday were normal. She denies headache, epigastric pain or visual changes this morning. We'll plan to change her over to oral pain medications morning as well. All the questions are answered for her at this time. She is able to ambulate and void and voices no other complaints. On physical exam heart regular, lungs clear, extremities without pain. Abdomen soft and uterus is firm. Incision is clean dry and intact. We'll plan continue care for now and make decisions on further treatme nts moving forward. Plan to advance diet as well. Patient reports: Reports appetite normal, Reports voiding normally, Reports pain well controlled, Reports ambulating normally : in NICU Objective - Vital Signs Latest vital signs: Vital Signs Temp Pulse Resp BP Pulse Ox 12/28/20 03:58 98.3 F 71 16 121/76 12/28/20 00:00 98.1 F 79 16 130/87 98 12/27/20 20:00 98.3 F 73 16 130/76 98 12/27/20 17:00 75 17 132/65 100 12/27/20 16:30 72 16 131/83 99 12/27/20 16:00 83 16 137/82 98 12/27/20 15:45 88 16 130/87 98 12/27/20 15:30 86 16 106/82 98 12/27/20 15:15 88 16 129/74 98 12/27/20 15:00 96.7 F L 95 16 137/78 98 12/27/20 13:47 96.3 F L 100 16 153/93 Intake and Output 12/27/20 12/28/20 12/28/20 22:59 06:59 14:59 Output Total 100 600 Balance -100 -600 Output: Urine 100 600 Uretheral (Sykes) 150 Other: Voiding Method Indwelling Catheter Indwelling Catheter - Exam Lungs: bilateral: normal Chest: Normal S1, Normal S2 Extremities: Present: normal Abdomen: Present: normal appearance, soft. Absent: distention, tenderness Incision: Present: normal, dry, intact Uterus: Present: normal, firm - Labs Labs: Abnormal Lab Results - Last 24 Hours (Table) 12/27/20 12/27/20 12/27/20 Range/Units 13:35 13:35 13:35 WBC 15.5 H (3.8-10.6) k/uL Hct (34.0-46.0) % Neutrophils # 12.4 H (1.3-7.7) k/uL Urine Appearance Cloudy H (Clear) Urine Protein Trace H (Negative) Urine Glucose (UA) 3+ H (Negative) Ur Leukocyte Esterase Trace H (Negative) Urine Mucus Rare H (None) /hpf Ur Amphetamines Screen Detected H (NotDetected) U Methamphetamines Scrn Detected H (NotDetected) U Marijuana (THC) Screen Detected H (NotDetected) 12/28/20 Range/Units 05:36 WBC 12.5 H (3.8-10.6) k/uL Hct 33.0 L (34.0-46.0) % Neutrophils # 9.4 H (1.3-7.7) k/uL Urine Appearance (Clear) Urine Protein (Negative) Urine Glucose (UA) (Negative) Ur Leukocyte Esterase (Negative) Urine Mucus (None) /hpf Ur Amphetamines Screen (NotDetected) U Methamphetamines Scrn (NotDetected) U Marijuana (THC) Screen (NotDetected)
[2020-12-28] MEDS: IBUPROFEN 600 MG TAB PO SCH ×3 (12:09→22:59)
[2020-12-29] MEDS: Acetaminophen-Codeine 300-30mg TAB PO PRN ×4 (00:58→23:34)
[2020-12-29] MEDS: ACETAMINOPHEN TAB 500 MG TAB PO SCH ×3 (01:12→13:24)
[2020-12-29] MEDS: IBUPROFEN 600 MG TAB PO SCH ×4 (01:12→20:30)
[2020-12-29] MEDS: KETOROLAC 15 MG/ML 1 ML VIAL IVP SCH (01:13)
--- NOTE | 2020-12-29 09:08 | P.PNOBGPC ---
Subjective - Subjective Principal diagnosis: Postop day 2 Interval history: Overall proceeding is doing very well. She is ambulating, voiding, and she is tolerating a diet. She voices pain on the right side her incision only her incision is otherwise clean dry and intact. We'll plan stable removal prior to discharge. All questions are answered for her at this time. Her baby is in special care nursery for observation. No other complaints or issues. Continue current care Patient reports: Reports appetite normal, Reports voiding normally, Reports pain well controlled, Reports ambulating normally [place]: in NICU Objective - Vital Signs Latest vital signs: Vital Signs Temp Pulse Resp BP Pulse Ox 12/29/20 07:13 98.1 F 82 16 137/81 98 12/29/20 00:00 97.1 F L 90 16 137/85 98 12/28/20 16:00 98.0 F 54 L 16 130/83 98 12/28/20 12:00 99.1 F 79 16 138/81 98 Intake and Output 12/28/20 12/29/20 12/29/20 22:59 06:59 14:59 Other: # Voids 2 1 - Exam Lungs: bilateral: normal Chest: Normal S1, Normal S2 Extremities: Present: normal Abdomen: Present: normal appearance, soft. Absent: distention, tenderness Incision: Present: normal, dry, intact Uterus: Present: normal, firm
[2020-12-29] MEDS: SENNOSIDES-DOCUSATE SODIUM 1 EACH TAB PO SCH ×2 (09:33→20:33)
[2020-12-30] MEDS: ACETAMINOPHEN TAB 500 MG TAB PO SCH ×5 (00:44→21:41)
[2020-12-30] MEDS: IBUPROFEN 600 MG TAB PO SCH ×5 (01:26→22:25)
--- NOTE | 2020-12-30 06:09 | P.PNOBGPC ---
Subjective - Subjective Patient reports: Reports appetite normal, Reports voiding normally, Reports pain well controlled, Reports ambulating normally : doing well Objective - Vital Signs Latest vital signs: Vital Signs Temp Pulse Resp BP Pulse Ox 12/30/20 04:00 71 14 142/67 12/30/20 00:00 78 16 12/29/20 23:35 98.8 F 78 16 152/95 98 12/29/20 16:00 97.6 F 66 16 130/82 98 12/29/20 07:13 98.1 F 82 16 137/81 98 Intake and Output 12/29/20 12/29/20 12/30/20 14:59 22:59 06:59 Other: Voiding Method Toilet # Voids 1 1 - Exam Lungs: bilateral: normal Chest: Normal S1, Normal S2 Extremities: Present: normal Abdomen: Present: normal appearance, soft. Absent: distention, tenderness Incision: Present: normal, dry, intact Uterus: Present: normal, firm Assessment and Plan Assessment: Postoperative day #3. Patient is resting without new complaints. Baby is in special care most likely will be there for a bit longer. Patient wishes to continue to stay here at the hospital. Vital signs are stable and she is afebrile. Uterus is firm nontender and her incision is intact and dry. My impression this is a normal postoperative course. Plan is to continue routine postoperative care and discharge home tomorrow (1) delivery delivered Current Visit: Yes Status: Acute Code(s): O82 - ENCOUNTER FOR DELIVERY WITHOUT INDICATION SNOMED Code(s): 215661940
[2020-12-30] MEDS: SENNOSIDES-DOCUSATE SODIUM 1 EACH TAB PO SCH ×2 (08:40→21:41)
[2020-12-30] MEDS: Acetaminophen-Codeine 300-30mg TAB PO PRN ×3 (08:40→18:33)
[2020-12-30 09:38] LABS: Uric Acid 6.4 mg/dL (3.7-7.4)
[2020-12-31] MEDS: Acetaminophen-Codeine 300-30mg TAB PO PRN ×2 (00:03→07:56)
[2020-12-31] MEDS: ACETAMINOPHEN TAB 500 MG TAB PO SCH ×2 (00:22→05:39)
[2020-12-31 00:24] VITALS: RESP 16
[2020-12-31] MEDS: IBUPROFEN 600 MG TAB PO SCH (05:33)
--- NOTE | 2020-12-31 07:42 | P.PNOBGPC ---
Subjective - Subjective Patient reports: Reports appetite normal, Reports voiding normally, Reports pain well controlled, Reports ambulating normally : doing well Objective - Vital Signs Latest vital signs: Vital Signs Temp Pulse Resp BP Pulse Ox 12/31/20 00:23 98.4 F 80 16 135/83 97 12/30/20 16:59 98.4 F 74 18 127/78 96 12/30/20 08:56 97.8 F 76 18 148/84 97 Intake and Output 12/30/20 12/31/20 12/31/20 22:59 06:59 14:59 Other: # Voids 2 1 - Exam Lungs: bilateral: normal Chest: Normal S1, Normal S2 Extremities: Present: normal Abdomen: Present: normal appearance, soft. Absent: distention, tenderness Incision: Present: normal, dry, intact Uterus: Present: normal, firm Assessment and Plan Assessment: Postoperative day #4. Patient is sleeping resting without new complaints. Vital signs are stable she's afebrile. Her incision is intact and dry. My impression is a normal postoperative course. Plan is to continue routine posto perative care discharge home later today (1) delivery delivered Current Visit: Yes Status: Acute Code(s): O82 - ENCOUNTER FOR DELIVERY WITHOUT INDICATION SNOMED Code(s): 972102650
[2020-12-31 07:47] VITALS: BP 139/92; PULSE 78; TEMP 98.1
[2020-12-31] MEDS: SENNOSIDES-DOCUSATE SODIUM 1 EACH TAB PO SCH (07:55)
--- NOTE | 2020-12-31 07:56 | P.DS ---
Providers Date of admission: 12/27/20 13:31 Expected date of discharge: 12/31/20 Attending physician: Sterling Barrera Primary care physician: Stated None - Discharge Diagnosis(es) (1) delivery delivered Current Visit: Yes Status: Acute Hospital Course: Please see dictated H&P for intimate details of this patient's admission. Brief summary is a 30-year-old 3 para 2 female 38-6/7 weeks gestation admitted by Dr. Barrera in active labor and previous section. Patient underwent a repeat low transverse section and bilateral partial salpingectomy. Please see dictated operative note. Postoperatively patient did well was felt be stable for discharge home on postoperative day #4. Of note patient did have limited care and polysubstance abuse. Patient's follow-up with Dr. Barrera in 1 week. Procedures: Repeat low transverse section and bilateral partial salpingectomy Patient Condition at Discharge: Good Plan - Discharge Summary New Discharge Prescriptions: New Ibuprofen [Motrin] 600 mg PO Q6H #30 tab Acetaminophen-Codeine 300-30mg [Tylenol w/codeine #3] 2 each PO Q4HR PRN #36 tab PRN Reason: Pain No Action Acyclovir 400 mg PO BID Pnv No.95/Ferrous Fum/Folic AC [ Multivitamin Tablet] 1 tab PO DAILY Discharge Medication List Acyclovir 400 mg PO BID 12/30/17 [History] Pnv No.95/Ferrous Fum/Folic AC [ Multivitamin Tablet] 1 tab PO DAILY 12/27/20 [History] Acetaminophen-Codeine 300-30mg [Tylenol w/codeine #3] 2 each PO Q4HR PRN #36 tab 12/31/20 [Rx] Ibuprofen [Motrin] 600 mg PO Q6H #30 tab 12/31/20 [Rx] Follow up Appointment(s)/Referral(s): Sterling Barrera DO [Doctor of Osteopathic Medicine] - 01/04/21 9:00 am (Please see Dr. Barrera on February 08 for a visit at 11 AM. ) Patient Instructions/Handouts: (DC) Activity/Diet/Wound Care/Special Instructions: No strenuous activity or heavy lifting for 6 weeks. No intercourse or anything per vagina for 6 weeks. Please call if any fever, chills, excessive vaginal bleeding, and/or abdominal pain Discharge Disposition: HOME SELF-CARE
== END 2020-12-31 12:10 | disposition home or self-care (01) | DRG 788 ==
LOC: FBPOP 12:58 → 4FBP 13:31
PROVIDERS: ADMIT Obstetrics & Gynecology; ATTEND Obstetrics & Gynecology
PROC: 10D00Z1 Extraction of Products of Conception, Low, Open Approach (ICD-10-PCS; principal; 2020-12-27 14:00)
DX: O34.211 Maternal care for low transverse scar from previous cesarean delivery (principal); F17.200 Nicotine dependence, unspecified, uncomplicated; F31.9 Bipolar disorder, unspecified; F90.9 Attention-deficit hyperactivity disorder, unspecified type; O99.334 Smoking (tobacco) complicating childbirth; O99.344 Other mental disorders complicating childbirth; Z37.0 Single live birth; Z3A.38 38 weeks gestation of pregnancy
CPT/HCPCS: 59025; 80306; 81001; 82565; 82570; 83615; 84156; 84450; 84460; 84520; 84550; 85025; 86850; 86870; 86880; 86900; 86901; 86902; 88307; 99213